=== PATIENT | female | born 1980 | race Caucasian/White ===

== ENCOUNTER 2019-05-25 10:22 | Outpatient (CLI) | payer MEDICAID, SELFPAY ==
[2019-05-25 11:10] LABS: Abs Immature Grans 0.03 k/cumm (0.0-0.09); Absolute Basophil Count 0.03 k/cumm (0.0-0.2); Absolute Eosinophil Count 0.19 k/cumm (0.0-0.7); Absolute Lymphocyte Count 2.56 k/cumm (1.2-3.4); Absolute Monocyte Count 0.43 k/cumm (0.11-0.7); Absolute Neutrophil Count 4.71 k/cumm (1.2-6.7); Basophils % 0.4; Eosinophils % 2.4; HCT 37.5 % (36.0-46.0); HGB 12.4 g/dL (12.0-15.5); Immature Grans % 0.4 %; Lymphocytes % 32.2; Mean Corp. HGB Concentration 33.1 g/dL (32.0-36.0); Mean Corpuscular Hemoglobin 37.9 pg (27.0-33.0); Mean Corpuscular Volume 114.7 fL (80-95); Mean Platelet Volume 10.7 fL (8.0-11.0); Monocytes % 5.4; Neutrophils % 59.2; Platelet Count 276 x1000/uL (130-400); RBC 3.27 m/cumm (4.00-5.20); RBC Distribution Width 13.2 % (11.7-14.6); White Blood Cell Count 7.95 k/cumm (4.4-10.8)
[2019-05-25 11:54] LABS: ALT 20 U/L (14-59); AST 17 U/L (15-37); Albumin 3.9 g/dL (3.4-5.0); Alkaline Phosphatase 73 U/L (46-116); Anion Gap 8.8 mmol/L (3-11); BUN 11 mg/dL (7-18); Bilirubin, Total 0.7 mg/dL (0.2-1.0); CO2 28.2 mmol/L (21.0-32.0); CREATININE 0.66 mg/dL (0.55-1.02); Calcium 8.9 mg/dL (8.5-10.1); Chloride 103 mmol/L (98-107); GGT 28 U/L (5-55); Glucose 73 mg/dL (74-106); Potassium 3.9 mmol/L (3.5-5.1); Sodium 140 mmol/L (136-145); Total Protein 7.2 g/dL (6.4-8.2)
[2019-05-25 12:04] LABS: Bilirubin, Direct 0.15 mg/dL (0.00-0.20)
[2019-05-25 12:09] LABS: Anisocytosis 2+; Diff Comment RBC Morph Reviewed
[2019-05-25 12:10] LABS: Macrocytosis 2+; Polychromasia Present
[2019-05-26 09:51] LABS: Hepatitis B Surface Ag Negative (Negative); Hepatitis C Ab w Rflx HCV PCR Reactive (Negative)
[2019-05-26 10:23] LABS: HIV-1/2 Ag & Ab Screen Negative (Negative)
[2019-05-26 10:26] LABS: Hep A Total Ab w Rflx IgM Positive (Negative)
[2019-05-30 08:49] LABS: HCV RNA Detection Quantitative 0 IU/mL (Undetected)
[2019-05-30 09:15] LABS: Hep A Antibody IgM Negative (Negative)
== END 2019-05-25 10:42 ==
PROVIDERS: PCP Nurse Practitioner Family; Visit Provider Nurse Practitioner Adult Health
DX: F11.20 Opioid dependence, uncomplicated (principal)
CPT/HCPCS: 36415; 80053; 80076; 86709; 86803; 87340; 87389; 82977; 85025; 87522

== ENCOUNTER 2019-07-10 18:04 | Outpatient (REF) | payer MEDICAID, SELFPAY ==
--- NOTE | 2019-07-10 17:15 | PAPFT_PTH ---
PATIENT: Aaliyah Brewer LOC: [facility] U#:[id number] AGE/SX: 39/F ROOM: RE07/10/[address]: Aquilino Munson : 1980 BED: DIS: 07/10/2019 SPEC #: [id number] RECD: 07/11/19 12:49 STATUS: VINAY REQ #: [id number] MICHELLE: 07/10/19 17:[address]: Aquilino Munson DEPT: [facility] Cytology RECD BY: Vinay Johnson Tissues: 1 - CX/ENDOCX FOR PAP SMEARS Procedures: PAP THIN PREP/UVM Screening HPV DNA PROBE Comments: [id number]
[2019-07-12 15:23] LABS: Chlamydia Result Negative (Negative); GC Result Negative (Negative)
[2019-07-12 22:41] LABS: HSV 1 PCR, Varies Negative (Negative); HSV 2 PCR, Varies Positive (Negative)
== END 2019-07-10 18:24 ==
LOC: NCHCN 18:04
PROVIDERS: PCP Nurse Practitioner Family; Visit Provider Family Medicine
DX: N76.6 Ulceration of vulva (principal); Z11.3 Encounter for screening for infections with a predominantly sexual mode of transmission; Z12.4 Encounter for screening for malignant neoplasm of cervix; Z11.51 Encounter for screening for human papillomavirus (HPV); Z00.00 Encounter for general adult medical examination without abnormal findings; R87.612 Low grade squamous intraepithelial lesion on cytologic smear of cervix (LGSIL)
CPT/HCPCS: 87491; 87529; 87591; 88142; 87624

== ENCOUNTER 2019-09-18 02:30 | Outpatient (CLI) | payer MEDICAID, SELFPAY ==
[2019-09-18 16:20] LABS: Abs Immature Grans 0.01 k/cumm (0.0-0.09); Absolute Basophil Count 0.02 k/cumm (0.0-0.2); Absolute Eosinophil Count 0.07 k/cumm (0.0-0.7); Absolute Lymphocyte Count 2.17 k/cumm (1.2-3.4); Absolute Monocyte Count 0.47 k/cumm (0.11-0.7); Absolute Neutrophil Count 3.47 k/cumm (1.2-6.7); Basophils % 0.3; Eosinophils % 1.1; HCT 35.4 % (36.0-46.0); HGB 12.1 g/dL (12.0-15.5); Immature Grans % 0.2 %; Lymphocytes % 34.9; Mean Corp. HGB Concentration 34.2 g/dL (32.0-36.0); Mean Corpuscular Hemoglobin 37.2 pg (27.0-33.0); Mean Corpuscular Volume 108.9 fL (80-95); Mean Platelet Volume 11.2 fL (8.0-11.0); Monocytes % 7.6; Neutrophils % 55.9; Platelet Count 237 x1000/uL (130-400); RBC 3.25 m/cumm (4.00-5.20); RBC Distribution Width 13.5 % (11.7-14.6); White Blood Cell Count 6.21 k/cumm (4.4-10.8)
[2019-09-18 16:48] LABS: ALT 15 U/L (14-59); AST 17 U/L (15-37); Albumin 3.7 g/dL (3.4-5.0); Alkaline Phosphatase 84 U/L (46-116); BUN 7 mg/dL (7-18); Bilirubin, Total 0.5 mg/dL (0.2-1.0); Calcium 8.7 mg/dL (8.5-10.1); Chloride 103 mmol/L (98-107); Glucose 85 mg/dL (74-106); Potassium 3.3 mmol/L (3.5-5.1); Sodium 138 mmol/L (136-145); Total Protein 6.6 g/dL (6.4-8.2)
[2019-09-18 16:52] LABS: ALT 15 U/L (14-59); AST 22 U/L (15-37); Albumin 3.7 g/dL (3.4-5.0); Alkaline Phosphatase 84 U/L (46-116); Bilirubin, Direct 0.15 mg/dL (0.00-0.20); Bilirubin, Total 0.5 mg/dL (0.2-1.0); Total Protein 6.7 g/dL (6.4-8.2)
[2019-09-18 17:04] LABS: GGT 16 U/L (5-55)
[2019-09-19 09:34] LABS: Hepatitis B Surface Ag Negative (Negative)
[2019-09-19 09:49] LABS: HIV-1/2 Ag & Ab Screen Negative (Negative)
[2019-09-19 10:02] LABS: Hep A Total Ab w Rflx IgM Positive (Negative)
[2019-09-19 10:03] LABS: Hepatitis C Ab w Rflx HCV PCR Reactive (Negative)
[2019-09-20 14:53] LABS: HCV RNA Qualitative Undetected (Undetected)
[2019-09-27 11:05] LABS: Hep A Antibody IgM Negative (Negative)
== END 2019-09-18 02:50 ==
PROVIDERS: Psychiatry & Neurology Neurology; PCP Nurse Practitioner Family; Visit Provider Nurse Practitioner Adult Health
DX: G70.00 Myasthenia gravis without (acute) exacerbation (principal); F11.20 Opioid dependence, uncomplicated
CPT/HCPCS: 36415; 80053; 80076; 86709; 86803; 87340; 87389; 87522; 82977; 85025

== ENCOUNTER 2019-11-13 02:25 | Outpatient (CLI) | payer MEDICAID, SELFPAY ==
[2019-11-13 15:29] LABS: Abs Immature Grans 0.02 10^3/uL (0.0-0.06); Absolute Basophil Count 0.04 10^3/uL (0.0-0.2); Absolute Eosinophil Count 0.06 10^3/uL (0.0-0.7); Absolute Lymphocyte Count 1.79 10^3/uL (1.2-3.4); Absolute Monocyte Count 0.45 10^3/uL (0.1-0.8); Absolute Neutrophil Count 4.45 10^3/uL (1.2-6.7); Basophils % 0.6; Eosinophils % 0.9; HCT 33.9 % (36.0-46.0); HGB 11.5 g/dL (11.2-15.7); Immature Grans % 0.3; Lymphocytes % 26.3; MCH 36.1 pg (27.0-33.0); MCHC 33.9 % (32.0-36.0); MCV 106.3 fL (80-95); MPV 10.5 fL (8.0-11.0); Monocytes % 6.6; Neutrophils % 65.3; Nucleated RBC 0 %; Platelet Count 181 10^3/uL (130-400); RBC 3.19 10^6/uL (3.93-5.22); RDW 14.3 % (11.7-14.6); RDW-SD 55.9 fL; WBC 6.81 10^3/uL (4.4-10.8)
[2019-11-13 16:17] LABS: ALT 16 U/L (14-59); AST 13 U/L (15-37); Albumin 3.7 g/dL (3.4-5.0); Alkaline Phosphatase 83 U/L (46-116); Anion Gap 6.8 mmol/L (3-11); BUN 11 mg/dL (7-18); Bilirubin, Total 0.4 mg/dL (0.2-1.0); CO2 27.2 mmol/L (21.0-32.0); CREATININE 0.63 mg/dL (0.55-1.02); Calcium 8.6 mg/dL (8.5-10.1); Chloride 105 mmol/L (98-107); Glucose 93 mg/dL (74-106); Sodium 139 mmol/L (136-145); Total Protein 6.5 g/dL (6.4-8.2)
[2019-11-13 17:15] LABS: Diff Comment RBC Morph Reviewed; Macrocytosis 3+
[2019-11-14 12:30] LABS: Vitamin B12 434 pg/mL (193-986)
== END 2019-11-13 02:45 ==
PROVIDERS: PCP Nurse Practitioner Family; Visit Provider Psychiatry & Neurology Neurology
DX: D64.9 Anemia, unspecified (principal); G70.00 Myasthenia gravis without (acute) exacerbation
CPT/HCPCS: 36415; 80053; 82607; 85025

== ENCOUNTER 2019-11-15 02:54 | Outpatient (CLI) | payer MEDICAID, SELFPAY ==
[2019-11-15 17:05] LABS: Folate 11.4 ng/mL (8.6-20.0)
== END 2019-11-15 03:14 ==
PROVIDERS: PCP Nurse Practitioner Family; Visit Provider Psychiatry & Neurology Neurology
DX: D64.9 Anemia, unspecified (principal)
CPT/HCPCS: 36415; 82746

== ENCOUNTER 2019-11-16 00:53 | Outpatient (CLI) | payer MEDICAID, SELFPAY ==
--- NOTE | 2019-11-16 07:45 | DI.CT_ITS ---
EXAM: CT CHEST W CLINICAL HISTORY: s/p thymoma/thymus resection,g70.00,d15.0 TECHNIQUE: COMPARISON: CT CHEST WITH CONTRAST from 06/30/2016 FINDINGS: Examination of the chest was performed with intravenous infusion of 70 cc of Omnipaque 350. Examinat ion is compared with prior examination June 2016, the patient has reportedly had interval thymus res ection for thymoma. The anterior mediastinal mass present on the previous examination is no longer visible. No clear-cut thymic tissue identified on today's examination, although mildly increased attenuation of mediastina l fat in the superior, anterior, and middle mediastinum could make differentiation of small thymic ma ss difficult. Mediastinal vascular structures appear intact. No mediastinal or hilar adenopathy. Tracheobronchial tree appears intact. Lungs are clear. No ple ural effusion. Images obtained through the upper abdomen show unremarkable appearance of visualized portions of live r, spleen, pancreas, adrenals, and kidneys. Thyroid appears normal. IMPRESSION: No evidence of recurrent thymic tumor. No adenopathy. No other significant findings. RADIATION DOSE DELIVERED: 447.54mGy.cm Total DLP
[2019-11-16] MEDS: Omnipaque 350 MG/ML 100 ML BTL IJ (15:37)
== END 2019-11-16 01:13 ==
PROVIDERS: PCP Nurse Practitioner Family; Visit Provider Psychiatry & Neurology Neurology
DX: Z86.018 Personal history of other benign neoplasm (principal); G70.00 Myasthenia gravis without (acute) exacerbation
CPT/HCPCS: 71260; J3490

== ENCOUNTER 2019-12-12 14:01 | Emergency (ER) | payer MEDICAID, SELFPAY ==
[2019-12-12] VITALS (28 sets, daily range): BP systolic 98–125; BP diastolic 65–78; PULSE 57–88; RESP 13–23; TEMP 36.7; O2SAT 94–100
--- NOTE | 2019-12-12 14:00 | RT.EKG_ITS ---
APPROVED REPORT Exam: Resting ECG Patient Location: E HR:80 bpm ECG Measurements Heart Rate 80 AXIS OR 163 P 49 QRSd 93 QRS 34 QT 373 T 38 QTc 430 Conclusion Sinus rhythm...normal P axis, V-rate 60- 99. I have reviewed and interpreted ECG and agree with software generated interpretation.
--- NOTE | 2019-12-12 14:03 | W.ED.GENAD ---
Discharge Plan Disposition Patient Disposition: HOME Condition: Improving Discharge Details Clinical Impression: Episode of syncope, Fatigue Primary Care Provider: Dorcas Moore ED Provider: Sandi Humphrey Home Meds and New Rx's Prescriptions: Continued azathioprine 50 mg tablet 250 mg PO DAILY Qty: 150 RF: 11 acetaminophen 325 mg capsule 325 mg PO ONCE PRNRF: 0 ibuprofen 200 mg capsule 200 mg PO Q6H PRNRF: 0 methylphenidate HCl 20 mg tablet 20 mg PO BID MDD 40mg Qty: 60 RF: 0 buprenorphine HCl 8 mg tablet, sublingual 12 mg SL DAILY RF: 0 Discharge Instructions Instructions: Syncope (ED), Fatigue (ED) Additional Instructions: Drink plenty of fluids and get plenty of rest. Call Dr. Biswas's office tomorrow to schedule a follow-up appointment for reevaluation this week. 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 Return immediately to the emergency department if you develop any worsening or new concerning symptoms. Discharge Data Discharge Physician: Sandi Humphrey Medical Decision Making 1415 -- 39-year-old female with a history of depression, hypersomnia, myasthenia gravis, polysubstance abuse history currently on Suboxone presents for fatigue for the past few days and syncopal episode at work today. EKG notes a rate of 80, sinus with no acute ST-T wave ischemic changes. Vitals within normal limits. She appears nontoxic. She has no focal deficits. Differential diagnosis includes dehydration, vasovagal syncope, viral illness. History and presentation does not appear consistent with acute CVA. Doubt arrhythmia as she has no complaint of chest pain, shortness of breath or palpitations and syncopal episode preceded by prodromal symptoms. We will place an IV, bolus IV fluids, screening labs, urine , chest x-ray and reassess. 1530 --labs and imaging reviewed and unremarkable. Patient reassessed and she still feels of feeling some fatigue but otherwise feels good to go home. She appears nontoxic. Her vitals within normal limits. Vitamin B12 and folate within normal limits. Discussed with patient that this does not appear consistent with a cardiac or neuro etiology. She is advised to increase her fluids and get plenty of rest. Discussed that symptoms could be viral in nature. Case and results discussed with Dr. Biswas who will follow up with patient in the office. Medical Records Medical records reviewed: Yes I reviewed the patient's medical records. Imaging Data Radiologic Study: Radiologist's impression: XR PORTABLE CHEST AP CLINICAL HISTORY: syncope, r/o acute disease TECHNIQUE: 2D digital imaging was performed. COMPARISON: No exams were available for comparison FINDINGS: MEDIASTINUM: Normal. HEART: Normal. PULMONARY VASCULATURE: Normal. LUNGS: Clear. PLEURAL SPACE: No pleural effusion or pneumothorax. BONE:Within normal limits for the patient's age. OTHER FINDINGS:Normal. IMPRESSION: No acute pulmonary findings. Lab Data Lab results reviewed: Yes I reviewed the patient's lab results. Labs: Laboratory Tests Range/Units 12/12/19 12/12/19 12/12/19 14:15 14:15 14:15 WBC (4.4-10.8) 10^3/uL 8.33 RBC (3.93-5.22) 10^6/uL 3.62 L Hgb (11.2-15.7) g/dL 13.1 Hct (36.0-46.0) % 38.2 MCV (80-95) fL 105.5 H MCH (27.0-33.0) pg 36.2 H MCHC (32.0-36.0) % 34.3 RDW (11.7-14.6) % 13.5 Plt Count (130-400) 10^3/uL 163 MPV (8.0-11.0) fL 11.3 H Immature Gran % 0.2 Neutrophils % 64.4 Lymphocytes % 27.4 Monocytes % 6.0 Eosinophils % 1.4 Basophils % 0.6 Nucleated RBC % % 0 Absolute Neutrophils (1.2-6.7) 10^3/uL 5.36 Absolute Lymphocytes (1.2-3.4) 10^3/uL 2.28 Absolute Monocytes (0.1-0.8) 10^3/uL 0.50 Absolute Eosinophils (0.0-0.7) 10^3/uL 0.12 Absolute Basophils (0.0-0.2) 10^3/uL 0.05 PT Cancelled INR Cancelled APTT Cancelled Sodium (136-145) mmol/L 139 Potassium (3.5-5.1) mmol/L 3.6 Chloride (98-107) mmol/L 106 Carbon Dioxide (21.0-32.0) mmol/L 23.9 Anion Gap (3-11) mmol/L 9.1 BUN (7-18) mg/dL 15 Creatinine (0.55-1.02) mg/dL 0.78 Estimated GFR/1.73 m2 (mL/min/1.73m2) >= 60.00 Glucose (74-106) mg/dL 92 Calcium (8.5-10.1) mg/dL 9.0 Magnesium (1.8-2.4) mg/dL 1.9 Total Bilirubin (0.2-1.0) mg/dL 0.2 AST (15-37) U/L 12 L ALT (14-59) U/L 9 L Alkaline Phosphatase (46-116) U/L 76 Troponin I (<0.06) ng/mL < 0.05 Total Protein (6.4-8.2) g/dL 7.0 Albumin (3.4-5.0) g/dL 3.7 Vitamin B12 (193-986) pg/mL 607 Folate (8.6-20.0) ng/mL 10.9 Range/Units 12/12/19 12/12/19 12/12/19 14:47 14:48 14:50 WBC (4.4-10.8) 10^3/uL RBC (3.93-5.22) 10^6/uL Hgb (11.2-15.7) g/dL Hct (36.0-46.0) % MCV (80-95) fL MCH (27.0-33.0) pg MCHC (32.0-36.0) % RDW (11.7-14.6) % Plt Count (130-400) 10^3/uL MPV (8.0-11.0) fL Immature Gran % Neutrophils % Lymphocytes % Monocytes % Eosinophils % Basophils % Nucleated RBC % % Absolute Neutrophils (1.2-6.7) 10^3/uL Absolute Lymphocytes (1.2-3.4) 10^3/uL Absolute Monocytes (0.1-0.8) 10^3/uL Absolute Eosinophils (0.0-0.7) 10^3/uL Absolute Basophils (0.0-0.2) 10^3/uL PT 9.9 INR 1.0 APTT 24.8 Sodium (136-145) mmol/L Potassium (3.5-5.1) mmol/L Chloride (98-107) mmol/L Carbon Dioxide (21.0-32.0) mmol/L Anion Gap (3-11) mmol/L BUN (7-18) mg/dL Creatinine (0.55-1.02) mg/dL Estimated GFR/1.73 m2 (mL/min/1.73m2) Glucose (74-106) mg/dL Calcium (8.5-10.1) mg/dL Magnesium (1.8-2.4) mg/dL Total Bilirubin (0.2-1.0) mg/dL AST (15-37) U/L ALT (14-59) U/L Alkaline Phosphatase (46-116) U/L Troponin I (<0.06) ng/mL Total Protein (6.4-8.2) g/dL Albumin (3.4-5.0) g/dL Vitamin B12 (193-986) pg/mL Cancelled Folate (8.6-20.0) ng/mL Cancelled ECG Data Attestation: I personally reviewed and interpreted this ECG (s) as follows: Interpretation: rate of 80, sinus, no acute ST elevation or depression. NM 163. QRS 93. QTc 430. HPI General Mode of arrival: ambulatory. Date/Time Provider Initiated Documentation: 12/12/19 14:01. Limitations to Documentation: no limitations. Information obtained by: patient. HPI Narrative: Patient is a 39-year-old female with a history of depression, hypersomnia, myasthenia gravis, history of polysubstance abuse on Suboxone for the past 2 years presents for fatigue for the past few days and syncopal episode at work this morning. Patient states she is on her feet all day at work and states she was walking when she felt lightheadedness, noted blurry vision and then tried to sit down but did not make it in time and passed out. She states she scraped her right thumb on the wall but otherwise denies any injuries. She denies any headache, chest pain, shortness of breath, palpitations, nausea, vomiting, abdominal pain, neck or back pain prior to onset of symptoms or at present. She states other than feeling more tired than usual over the past few days she denies any other acute symptoms. She states she has been eating and sleeping normally. She denies any fever, recent travel or recent known sick contacts. She states she has been weaning down off of her Suboxone by 2 mg every 2 weeks and states she decreased from 14 to 12 last . She states that she called Dr. Biswas's office this morning regarding her symptoms and was advised to come to the ER for evaluation and EKG. She only complains of fatigue at this time and denies any other symptoms. Related Data Home Medications Medication Instructions Recorded Confirmed acetaminophen 325 mg capsule 325 mg PO ONCE PRN 04/26/19 12/12/19 ibuprofen 200 mg capsule 200 mg PO Q6H PRN 04/26/19 12/12/19 azathioprine 50 mg tablet 250 mg PO DAILY #150 tab 06/07/19 12/12/19 methylphenidate HCl 20 mg tablet 20 mg PO BID #60 tab MDD 40mg 11/14/19 12/12/19 buprenorphine HCl 12 mg SL DAILY 12/12/19 12/12/19 Previous Rx's Medication Instructions Recorded azathioprine 50 mg tablet 250 mg PO DAILY #150 tab 06/07/19 methylphenidate HCl 20 mg tablet 20 mg PO BID #60 tab MDD 40mg 11/14/19 Allergies Allergy/AdvReac Type Severity Reaction Status Date / Time adhesive tape Allergy Severe pealed her Unverified 12/12/19 14:07 skin off when removing the tape. Review of Systems All systems reviewed & are unremarkable except as noted in HPI and below Constitutional Constitutional: Reports as per HPI, Denies chills, Reports fatigue and Denies fever(s) Eyes Eyes: Denies blurry vision ENT Ears, Nose, Mouth, and Throat: Reports dizziness, Denies sore throat and Denies throat swelling Cardiovascular Cardiovascular: Denies chest pain and Denies dyspnea Respiratory Respiratory: Denies cough and Denies dyspnea Gastrointestinal Gastrointestinal: Denies abdominal pain, Denies diarrhea and Denies vomiting Genitourinary Genitourinary: Denies hematuria and Denies dysuria Musculoskeletal Musculoskeletal: Denies back pain and Denies numbness Integumentary/Breasts Skin/Breast: Denies lesions and Denies rash Neurologic Neurologic: Reports dizziness, Denies localized weakness and Denies numbness Endocrine Endocrine: Reports fatigue Allergic/Immunologic Allergic/Immunologic: Denies throat swelling [facility] Medical History (Updated 12/12/19 @ 16:33 by Sandi Humphrey DO) Depression 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 Hypersomnia Incompetent cervix Myasthenia gravis Polysubstance (including opioids) dependence with physiol dependence Thymoma Surgical History History of thymectomy Hx of breast implants, bilateral S/P dilatation and curettage S/P tubal ligation Social History (Updated 09/07/19 @ 10:10 by Gina Martinez LPN) Smoking/Tobacco Use Status: Current every day Tobacco Type: cigarettes Alcohol Intake: never Drug use: Current Sobriety Number of Children: 2 current occupation: Unemployed Do you feel safe at home: Yes Do you feel safe in your relationship?: Yes Exam Const General: cooperative, healthy appearing and no acute distress HENMT Head: normal to inspection Face and sinus: normal facial exam Eyes General: appearance normal, both eyes and all related structures Pupils: PERRL EOM: EOM intact bilaterally Neck Neck: normal visual inspection and No submandibular swelling Lymphatic: no lymphadenopathy noted Chest Chest: normal inspection of the chest and no tenderness Resp Effort & Inspection: normal respiratory effort and able to speak in complete sentences Auscultation: clear to auscultation bilaterally Cardio Rate: regular rate Rhythm: regular rhythm GI Inspection: normal to inspection Palpation: soft, not firm, not rigid and nontender Auscultation: normal bowel sounds Skin General skin exam: no rashes or lesions noted Neuro General: patient alert, patient awake, patient oriented x3, gait normal, moves all extremities, no meningeal signs and no focal motor deficits Cognition: normal cognition Speech: speech normal Motor: muscle tone normal throughout and strength 5/5 throughout Sensory Exam: no sensory deficits noted Extrem General: normal to inspection, full ROM, capillary refill normal, no calf tenderness bilaterally and no edema Psych Appearance: grossly normal Mental Status: mental status grossly normal Speech and Movement: speech and movement normal Affect: normal affect
--- NOTE | 2019-12-12 14:30 | DI.RAD_ITS ---
EXAM: XR PORTABLE CHEST AP CLINICAL HISTORY: syncope, r/o acute disease TECHNIQUE: 2D digital imaging was performed. COMPARISON: No exams were available for comparison FINDINGS: MEDIASTINUM: Normal. HEART: Normal. PULMONARY VASCULATURE: Normal. LUNGS: Clear. PLEURAL SPACE: No pleural effusion or pneumothorax. BONE:Within normal limits for the patient's age. OTHER FINDINGS:Normal. IMPRESSION: No acute pulmonary findings. DATA REPOSITORY: RADIATION DOSE DELIVERED:
[2019-12-12 14:34] LABS: Abs Immature Grans 0.02 10^3/uL (0.0-0.06); Absolute Basophil Count 0.05 10^3/uL (0.0-0.2); Absolute Eosinophil Count 0.12 10^3/uL (0.0-0.7); Absolute Lymphocyte Count 2.28 10^3/uL (1.2-3.4); Absolute Neutrophil Count 5.36 10^3/uL (1.2-6.7); Basophils % 0.6; Eosinophils % 1.4; HCT 38.2 % (36.0-46.0); HGB 13.1 g/dL (11.2-15.7); Immature Grans % 0.2; Lymphocytes % 27.4; MCH 36.2 pg (27.0-33.0); MCHC 34.3 % (32.0-36.0); MCV 105.5 fL (80-95); MPV 11.3 fL (8.0-11.0); Neutrophils % 64.4; Nucleated RBC 0 %; Platelet Count 163 10^3/uL (130-400); RBC 3.62 10^6/uL (3.93-5.22); RDW 13.5 % (11.7-14.6); WBC 8.33 10^3/uL (4.4-10.8)
[2019-12-12] MEDS: Normal Saline 1,000 ML 1000 ML IV (14:48)
[2019-12-12 14:55] LABS: ALT 9 U/L (14-59); AST 12 U/L (15-37); Albumin 3.7 g/dL (3.4-5.0); Alkaline Phosphatase 76 U/L (46-116); Anion Gap 9.1 mmol/L (3-11); BUN 15 mg/dL (7-18); Bilirubin, Total 0.2 mg/dL (0.2-1.0); CO2 23.9 mmol/L (21.0-32.0); CREATININE 0.78 mg/dL (0.55-1.02); Chloride 106 mmol/L (98-107); Glucose 92 mg/dL (74-106); Magnesium 1.9 mg/dL (1.8-2.4); Potassium 3.6 mmol/L (3.5-5.1); Sodium 139 mmol/L (136-145)
[2019-12-12 14:58] LABS: Troponin I < 0.05 ng/mL (<0.06)
[2019-12-12 15:14] LABS: PTT Activated 24.8 sec (21.0-31.4); Prothrombin Time 9.9 sec (9.3-11.0)
[2019-12-12 15:38] LABS: Folate 10.9 ng/mL (8.6-20.0); Vitamin B12 607 pg/mL (193-986)
== END 2019-12-12 16:47 | disposition home or self-care (01) ==
PROVIDERS: Emergency Provider Physician Assistant; PCP Nurse Practitioner Family
DX: R55 Syncope and collapse (principal); R53.83 Other fatigue; G70.00 Myasthenia gravis without (acute) exacerbation; G47.10 Hypersomnia, unspecified
CPT/HCPCS: 36415; 80053; 81025; 93005; 96360; 99285; 71045; 82607; 82746; 83735; 84484; 85025; 85610; 85730; 93010

== ENCOUNTER 2020-02-14 02:10 | Outpatient (CLI) | payer MEDICAID, SELFPAY ==
[2020-02-15 15:24] LABS: SARS-CoV-2 RNA Not Detected (NotDetected); SARS-CoV-2 RNA Source Nasal/Nares
== END 2020-02-14 02:30 ==
PROVIDERS: PCP Nurse Practitioner Family; Visit Provider Orthopaedic Surgery
DX: Z11.59 Encounter for screening for other viral diseases (principal); Z01.818 Encounter for other preprocedural examination
CPT/HCPCS: U0003

== ENCOUNTER 2020-02-19 07:15 | Day surgery (SDC) | payer MEDICAID, SELFPAY ==
[2020-02-19 07:26] VITALS: BP 113/70; PULSE 70; RESP 16; TEMP 36.4; O2SAT 100
--- NOTE | 2020-02-19 07:47 | W.PREOPHP ---
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 Denies any contact with Covid-19 positive persons. Educated patient on surgery covering surgical technique, recovery process, benefits and risks including but not limited to risk of infection, blood clot, damage to soft tissue/blood vessels/nerves in detail. Educated that relief of her numbness and tingling was not guaranteed and can take up to 24 months to see end medical result. After discussion patient gives verbal understanding of risks and elects to proceed with scheduling surgery. Patient had opportunity to have questions answered to their satisfaction. They will contact office if issues arise. Patient will continue to be scheduled for right ECTR with Dr. Gottlieb. History of Present Illness Narrative: Ms. Brewer is a 40-year-old female who presents to hospital for scheduled right ECTR later today. She has been experiencing numbness and weakness in her right hand since June 2019. Due to this symptoms she has been having difficulty with picking up small objects as well as dropping things. She has tried to manage her symptoms with nighttime bracing which completely resolved her left hand complaints but did not change her right hand symptoms. Due to her continued symptoms she was offered and elected to proceed with surgical intervention. Pertinent Surgical Information Reports she has history of hepatitis C but completed treatment while incarcerated ~1 year ago. Denies past medical history of: Hypertension, stroke, cardiac issues, angina, asthma, COPD, sleep apnea, renal issues, gastrointestinal issues, ulcers, hyperlipidemia, bleeding disorders, seizures, migraines, anxiety, diabetes, thyroid issues Denies prior complications from surgery or anesthesia. 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 Hypersomnia Incompetent cervix Irregular menses (01/12/14) Myasthenia gravis Polysubstance (including opioids) dependence with physiol dependence On Suboxone, pt states she has been tapering off this medication Thymoma Surgical History History of thymectomy Hx of breast implants, bilateral S/P dilatation and curettage S/P tubal ligation Social History Smoking/Tobacco Use Status: Current every day Tobacco Type: cigarettes Smoking risk assessment performed?: Yes Alcohol Intake: never Drug use: Current Sobriety Substance use type: does not use Number of Children: 2 current occupation: Unemployed Current gender identity: female Do you feel safe at home: Yes Do you feel safe in your relationship?: Yes Meds Home Medications and Allergies Home Medications Medication Instructions Recorded Confirmed Type acetaminophen 325 mg capsule 325 mg PO ONCE PRN 04/26/19 02/19/20 History ibuprofen 200 mg capsule 200 mg PO Q6H PRN 04/26/19 02/13/20 History azathioprine 50 mg tablet 250 mg PO DAILY #150 tab 06/07/19 02/19/20 Rx buprenorphine HCl 8 mg SL DAILY 12/12/19 02/19/20 History methylphenidate HCl 20 mg tablet 20 mg PO BID #60 tab MDD 40mg 02/07/20 02/19/20 Rx Allergies Allergy/AdvReac Type Severity Reaction Status Date / Time adhesive tape Allergy Severe pealed her Unverified 02/13/20 10:16 skin off when removing the tape. Exam Const General: cooperative and no acute distress Resp Effort & Inspection: normal respiratory effort and able to speak in complete sentences Auscultation: clear to auscultation bilaterally, no rales, no rhonchi and no wheezes Cardio Heart Sounds: S1 normal, S2 normal, no murmurs, no rubs and no other Pulses: radial pulses present bilaterally Results Last Vital Signs Temp 36.4 C L 02/19/20 07:26 Pulse 70 02/19/20 07:26 Resp 16 02/19/20 07:26 BP 113/70 02/19/20 07:26 Pulse Ox 100 02/19/20 07:26
[2020-02-19] MEDS: Lactated Ringers 1,000 ML 80 ML IV (08:00)
[2020-02-19] MEDS: ceFAZolin 1 GM/50 ML BAG IVPB (08:30)
[2020-02-19] MEDS: Bupivacaine 0.5% Pres-Free 30 ML VIAL (08:58)
--- NOTE | 2020-02-19 09:09 | W.PM.DSUDISC ---
Discharge Plan Disposition Patient Disposition: HOME Condition: Good Discharge Details Reason For Visit: R ECTR Attending Provider: Sherif Gottlieb Primary Care Provider: Dorcas Moore Home Meds and New Rx's Prescriptions: New hydrocodone-acetaminophen 5-325 mg tablet 1 tab PO Q6H PRN (Reason: pain) Qty: 7 RF: 0 Continued azathioprine 50 mg tablet 250 mg PO DAILY Qty: 150 RF: 11 acetaminophen 325 mg capsule 325 mg PO ONCE PRNRF: 0 ibuprofen 200 mg capsule 200 mg PO Q6H PRNRF: 0 methylphenidate HCl 20 mg tablet 20 mg PO BID MDD 40mg Qty: 60 RF: 0 buprenorphine HCl 8 mg tablet, sublingual 8 mg SL DAILY RF: 0 Discharge Instructions Additional Instructions: Elevate R hand above heart level as much as possible overnite tonite. Wiggle fingers of R hand 10 times/hour when awake to prevent swelling. Keep splint and dressings dry and intact for 48 hours. Remove splint AND dressings after 48 hours, and begin to move R wrist. Use R hand as much as your discomfort allows. May leave incision uncovered when it is dry and sealed. Follow up with on 02/28/20 for suture removal. Take tylenol or ibuprofen for mild pain. Take hydrocodone for breakthru pain, if needed. Referrals: Sherif Gottlieb MD [ [facility] STAFF PHYSICIAN] - (f/u 02/28/20Wed) Equipment/Supplies: Splint Activity:: Activity as Tolerated Remove Dressings/Wound Care:: 48 hours Shower/Bathe:: 48 hours Diet:: As Tolerated Discharge Orders Discharge Orders: Discharge Order (Routine); Ordered 02/19/20 Ordered By: Sherif Gottlieb DS: Diagnosis Discharge Diagnosis (1) Carpal tunnel syndrome on right: Status: Acute
--- NOTE | 2020-02-19 09:46 | NUR.NOTE ---
States she never recieved instructions or prescriptions for a bowel prep...only for instructions about when to stop eating and for clear liquids. Dr. Ruggiero made aware. Procedure cancelled. IV discontinued. Escorted out by RN and instructed to call Dr. Meeks's office. Nursing Note:
[2020-02-19 10:06] VITALS: BP 94/63; PULSE 58; RESP 16; TEMP 36.6; O2SAT 99
--- NOTE | 2020-02-19 14:59 | ROE_ITS ---
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 Diagnosis was confirmed with nerve conduction studies. She achieved some temporary relief from night splinting. Over the last couple months she has had no significant relief of symptoms of numbness and pain in the median nerve distribution of her right hand. Carpal tunnel release was recommended to alleviate her symptoms on a permanent basis. Patient wished to undergo the endoscopic technique of carpal tunnel release. The risks and complications of procedure have been explained to her in detail preoperatively. Procedure Description: Patient was taken the operating room on 02/19/2020 where she was placed supine operating table. An IV regional anesthetic was administered to the right upper extremity. Once good anesthesia was obtained, the right hand wrist and forearm were prepped and draped free in usual sterile fashion. Transverse incision was made in line with the proximal flexion crease of the wrist beginning at the flexor carpi radialis tendon extending to the flexor carpi ulnaris tendon. Palmaris longus tendon was identified and was retracted radially. Subtenon's veins were cauterized. A distally based fascial flap was then developed to gain access to the carpal canal. Synovial reflector was then used to release any synovial attachments to the undersurface of the volar carpal ligament. Series of obturators were then introduced to make room for the endoscope/blade device. The endoscope/blade was then inserted into the carpal canal and advanced until the distal edge of the volar carpal ligament was clearly visualized. Care was taken to position the endoscope against the hook of the hamate. The trigger was depressed elevating the blade and the elevated blade was brought out from distal to proximal through the skin incision, transecting the volar carpal ligament. The blade was lowered the endoscope was reintroduced into the carpal tunnel. I confirmed that the carpal tunnel release was complete and that the median nerve could be seen to fall into the defect created in the volar carpal ligament. The endoscope was removed. Littler scissors were then used to perform a subcutaneous fasciotomy for approximately 2 inches proximal to the skin incision. Wounds irrigated with saline solution. The wound margins were infiltrated 0.5% Marcaine solution and a median nerve block was performed with 0.5% Marcaine solution. Skin edges were approximated with 2 horizontal mattress sutures of 4-0 nylon suture material. The wound was dressed with Xeroform gauze sterile gauze 4 x 4's wrapped with a Kerlix bandage and then wrapped with a 3 inch Adam bandage. She is placed in a commercial cock- up wrist splint. Her IV regional anesthesia was reversed without complications and she was discharged to the recovery room in good condition. Patient was later discharged home from day surgery unit when fully recovered from IV regional anesthesia. She is given instructions to try to elevate her right hand above heart level as much as possible overnight tonight. She is encouraged to wiggle her fingers 10 times an hour while awake to prevent swelling. She is to keep the dressings and splint dry and intact for 48 hours. After 48 hours she is to remove the splint and dressings and begin to move her right wrist. She may then shower bathe and get her incision wet. She is to leave the incision uncovered when is dry and sealed. She may use her right hand is much as discomfort allows. She will take Tylenol or ibuprofen for mild pain. She is given a prescription for breakthrough pain of hydrocodone with APAP 5/325 1 every 6 hours if needed. She will follow-up with Dr. Gottlieb on 02/28/2020.
== END 2020-02-19 10:38 | disposition home or self-care (01) ==
PROVIDERS: PCP Nurse Practitioner Family; Visit Provider Orthopaedic Surgery
PROC: 01N54ZZ Release Median Nerve, Percutaneous Endoscopic Approach (ICD-10-PCS; CPT 29848; principal; 2020-02-19 08:15)
DX: G56.01 Carpal tunnel syndrome, right upper limb (principal)
CPT/HCPCS: 29848; NC; J0690; J1100; J1885; J2001; J2405; J2704; L3908

== ENCOUNTER 2020-03-05 15:53 | Outpatient (REF) | payer MEDICAID, SELFPAY ==
--- NOTE | 2020-03-05 15:00 | PAPFT_PTH ---
PATIENT: Aaliyah Brewer LOC: [facility] U#:[id number] AGE/SX: 40/F ROOM: RE03/05/[address]: BENITO Amaya : 1980 BED: DIS: 03/05/2020 SPEC #: [id number] RECD: 03/05/20 18:03 STATUS: VINAY REJanine #: [id number] MICHELLE: 03/05/20 15:[address]: Lexus Carvalho DEPT: COUNTS INCLUDE 234 BEDS AT THE [facility] Cytology RECD BY: Taryn Rahman ENTERED: 03/05/20 18:04 SP TYPE: PAPFT CORDELL DR: Dorcas Moore Tissues: 1 - CX/ENDOCX FOR PAP SMEARS Procedures: PAP THIN PREP/UVM Screening HPV DNA PROBE Comments: [id number]
== END 2020-03-05 16:13 ==
LOC: LBN 15:53
PROVIDERS: PCP Nurse Practitioner Family; Visit Provider Nurse Practitioner Family
DX: Z12.4 Encounter for screening for malignant neoplasm of cervix (principal); Z11.51 Encounter for screening for human papillomavirus (HPV)
CPT/HCPCS: 88142; 87624

== ENCOUNTER 2020-07-22 11:57 | Outpatient (REF) | payer MEDICAID, SELFPAY ==
[2020-07-23 15:42] LABS: COVID-19 RT-PCR UVMMC Result Negative (Negative)
== END 2020-07-22 11:58 | disposition home or self-care (01) ==
LOC: NCHCN 11:57
PROVIDERS: PCP Nurse Practitioner Family; Visit Provider Nurse Practitioner Family
DX: Z20.822 Contact with and (suspected) exposure to COVID-19 (principal); R51.9 Headache, unspecified
CPT/HCPCS: 80053; 83690; U0003; 82150; 82728; 85025

== ENCOUNTER 2020-08-16 15:26 | Outpatient (REF) | payer MEDICAID, SELFPAY ==
[2020-08-16 19:02] LABS: HCT 37.6 % (36.0-46.0); HGB 12.8 g/dL (11.2-15.7); MCH 31.5 pg (27.0-33.0); MCV 92.6 fL (80-95); MPV 12.1 fL (8.0-11.0); Platelet Count 192 10^3/uL (130-400); RBC 4.06 10^6/uL (3.93-5.22); RDW 12.4 % (11.7-14.6); RDW-SD 42.6 fL; WBC 7.31 10^3/uL (4.4-10.8)
== END 2020-08-16 15:27 | disposition home or self-care (01) ==
LOC: NCHCN 15:26
PROVIDERS: PCP Nurse Practitioner Family; Visit Provider Physician Assistant
DX: R11.0 Nausea (principal)
CPT/HCPCS: 80048; 80076; 85027

== ENCOUNTER 2020-08-21 03:28 | Outpatient (CLI) | payer MEDICAID, SELFPAY ==
[2020-08-21 13:20] LABS: ALT 14 U/L (14-59); AST 12 U/L (15-37); Albumin 3.7 g/dL (3.4-5.0); Alkaline Phosphatase 62 U/L (46-116); Anion Gap 7.4 mmol/L (3-11); BUN 11 mg/dL (7-18); Bilirubin, Direct 0.1 mg/dL (0.0-0.2); Bilirubin, Total 0.4 mg/dL (0.2-1.0); CO2 28.6 mmol/L (21.0-32.0); CREATININE 0.7 mg/dL (0.55-1.02); Calcium 8.6 mg/dL (8.5-10.1); Chloride 106 mmol/L (98-107); Glucose 70 mg/dL (74-106); Sodium 142 mmol/L (136-145); Total Protein 6.7 g/dL (6.4-8.2)
== END 2020-08-21 03:29 | disposition home or self-care (01) ==
LOC: LBO 03:28
PROVIDERS: PCP Nurse Practitioner Family; Visit Provider Physician Assistant
DX: R11.0 Nausea (principal)
CPT/HCPCS: 80048; 80076

== ENCOUNTER 2020-09-02 02:40 | Emergency (ER) | payer MEDICAID, SELFPAY ==
[2020-09-02] VITALS (8 sets, daily range): BP systolic 77–108; BP diastolic 49–67; PULSE 49–60; RESP 10–16; TEMP 36.3; O2SAT 94–100
--- NOTE | 2020-09-02 02:30 | RT.EKG_ITS ---
APPROVED REPORT Exam: Resting ECG Reason for Exam: shortness of breath Patient Location: E HR:54 bpm ECG Measurements Heart Rate 54 AXIS MT 134 P 20 QRSd 97 QRS 40 QT 432 T 56 QTc 408 Conclusion Sinus bradycardia...rate< 60
[2020-09-02 02:54] LABS: Bilirubin Negative (Negative); Blood Negative (Negative); Clarity Cloudy (Clear); Glucose Negative (Negative); Ketones Negative (Negative); Leukocyte Esterase Negative (Negative); Nitrite Negative (Negative); Specific Gravity >= 1.030 (1.005-1.025); Urobilinogen 0.2 EU/dL (Up TO 0.2)
--- NOTE | 2020-09-02 03:00 | DI.CT_ITS ---
Exam(s) CT THORAX CTA EXAM: CT THORAX CTA CLINICAL HISTORY: chest and upper back pain. TECHNIQUE: Imaging Protocol: CT angiography of the chest was performed using pulmonary embolus donna col. Multi planar reconstructions were performed. CONTRAST MATERIAL: Intravenous: Omnipaque 350 Contrast volume: 100 cc COMPARISON: CT CT CHEST W from 11/16/2019 FINDINGS: CHEST: PULMONARY ARTERIES: There are no intraluminal filling defects to suggest acute pulmonary emboli. LUNGS: There are no infiltrates nor evidence of pulmonary infarction.. There are no pleural effusions . MEDIASTINUM: There is no hilar nor mediastinal adenopathy. Visualized thyroid unremarkable. CARDIAC: Heart size is upper normal. There is no pericardial effusion.Caliber of the thoracic aorta is within normal limits. There is no significant shift of the interventricular septum. PARTIALLY VISUALIZED UPPERMOST ABDOMEN: No obvious findings OSSEOUS: No significant osseous lesions.. Bilateral saline breast implants are again noted IMPRESSION: 1. No evidence of acute pulmonary emboli. No evidence of pulmonary infarction.No pleural effusions. 2. No aortic dissection. No pericardial effusion. 3. No mediastinal adenopathy nor mass. Apparently there has been previous thymus pathology. No evid ence of thymus mass at this time. RADIATION DOSE DELIVERED: 459.04mGy.cm Total DLP DATA REPOSITORY: All CT scans at this facility are submitted to the National Radiology Data Registry (NRDR) Dose Index Registry (DIR) with the [employer] (ACR). RADIATION OPTIMIZATION: All CT scans at this facility use at least one of these dose optimization te chniques: automated exposure control; mA and/or kV adjustment per patient size (includes targeted exa ms where dose is matched to clinical indication); or iterative reconstruction.
--- NOTE | 2020-09-02 03:01 | W.ED.GENAD ---
Discharge Plan Disposition Patient Disposition: AGAINST MEDICAL ADVICE Condition: Stable Discharge Details Clinical Impression: Myasthenic crisis, Shortness of breath, Upper back pain Primary Care Provider: Dorcas Moore ED Provider: Luis Swan Home Meds and New Rx's Prescriptions: Continued sertraline 50 mg tablet 50 mg PO DAILY RF: 0 prochlorperazine maleate [Compazine] 10 mg tablet 10 mg PO TID PRNRF: 0 azathioprine 50 mg tablet 250 mg PO DAILY Qty: 150 RF: 11 prednisone 20 mg tablet 20 mg PO DAILY Qty: 5 RF: 0 methylphenidate HCl 20 mg tablet 20 mg PO TID MDD 60mg Qty: 90 RF: 0 pyridostigmine bromide [Mestinon] 60 mg tablet See Rx Instructions PO TID Qty: 90 RF: 5 acetaminophen 325 mg capsule 325 mg PO ONCE PRNRF: 0 ibuprofen 200 mg capsule 200 mg PO Q6H PRNRF: 0 buprenorphine HCl 8 mg tablet, sublingual 6 mg SL DAILY RF: 0 Discharge Instructions Additional Instructions: We recommended you be admitted for your symptoms and you elected to leave against medical advice Follow up with your neurologist as soon as possible if you change your mind and want further evaluation and treatment, or you feel worsening shortness of breath return to the emergency department immediately Medical Decision Making 40 yo female with hx of myasthenia who comes in today with onset of upper back and chest discomfort and feeling as though she is short of breath. She saw Dr. Biswas her neurologist last week and was having difficulties speaking and with eyelid drooping and was started on prednisone 20mg daily for 5 days for which she finished yesterday. She states she did not notice a significant decrease in her symptoms and then around midnight woke up with upper back pain along with some anterior chest pain and feeling as though she can't take a deep breath. She denies fevers or cough. She is able to count to 16 in a single breath and in her neurologists note from last week was able to count to 24. She has clear lung sounds bilaterally though does seem to become fatigued when speaking more than 5-6 words at a time. She has no murmurs, jvd or leg swelling. I suspect her shortness of breath is due to myasthenic crisis and will need neurology consult, will evaluate for possible other causes of her symptoms as well with troponin, ecg unremarkable showing no stemi, and also cta given the back and chest pain to evaluate for dissection. No hypoxia or tachycardia so doubt PE at this time. labs and imaging unremarkable and she is stable at this time, NIF done by respiratory therapy is -50, will consult with neurology at [facility] with Dr. Stanton and after discussion of patient's presentation, symptoms seems likely myasthenic crisis and he did recommend starting IVIG and monitoring respiratory status closely, and could also increase pyridostigmine to 90mg QID. Discussed with pt and will discuss with hospitalist about admission for monitoring respiratory status shortly after Dr. Tidwell evaluated patient for admission she decided she did not want to stay. She has full capacity to make her own decisions and understands risks of leaving including and permanent disability requiring lifelong assistance and she is willing to accept these risks. She is leaving against my medical advise. I did discuss with her at length that if she changes her mind she can always return to the ED and that also if she gets worse in any way to return as well. Differential Diagnosis Differential Diagnosis: myasthenia crisis, dissection, nstemi Medical Records Medical records reviewed: Yes I reviewed the patient's medical records. Lab Data Lab results reviewed: Yes I reviewed the patient's lab results. ECG Data Attestation: I personally reviewed and interpreted this ECG (s) as follows: Prior ECG tracings: available for review Interpretation: sinus bradycardia, rate of 54, qtc 408, no acute st t wave ischemic findings HPI General Mode of arrival: ambulatory. Date/Time Provider Initiated Documentation: 09/02/20 02:41. Limitations to Documentation: no limitations. Information obtained by: patient. History of Present Illness 40 year old F presents to the emergency department with the chief complaint of upper back pain, described as moderate, Patient reports no radiation. and it has been constant. No relieving factors improve symptom(s), No exacerbating factors reported . Patient notes shortness of breath. Patient did receive the following treatments prior to arrival, none Related Data Home Medications Medication Instructions Recorded Confirmed acetaminophen 325 mg capsule 325 mg PO ONCE PRN 04/26/19 09/02/20 ibuprofen 200 mg capsule 200 mg PO Q6H PRN 04/26/19 09/02/20 sertraline 50 mg tablet 50 mg PO DAILY 06/05/20 09/02/20 azathioprine 50 mg tablet 250 mg PO DAILY #150 tab 08/28/20 09/02/20 buprenorphine HCl 8 mg sublingual 6 mg SL DAILY tab 08/28/20 09/02/20 tablet methylphenidate HCl 20 mg tablet 20 mg PO TID #90 tab MDD 60mg 08/28/20 09/02/20 prednisone 20 mg tablet 20 mg PO DAILY #5 tab 08/28/20 09/02/20 prochlorperazine maleate 10 mg 10 mg PO TID PRN 08/28/20 09/02/20 tablet pyridostigmine bromide 60 mg tablet See Rx Instructions PO TID #90 tab 08/28/20 09/02/20 Previous Rx's Medication Instructions Recorded azathioprine 50 mg tablet 250 mg PO DAILY #150 tab 08/28/20 methylphenidate HCl 20 mg tablet 20 mg PO TID #90 tab MDD 60mg 08/28/20 prednisone 20 mg tablet 20 mg PO DAILY #5 tab 08/28/20 pyridostigmine bromide 60 mg tablet See Rx Instructions PO TID #90 tab 08/28/20 Allergies Allergy/AdvReac Type Severity Reaction Status Date / Time adhesive tape Allergy Severe pealed her Verified 09/02/20 02:56 skin off when removing the tape. General Stated Complaint: Nk/Back Pain CHRIS: 2 Review of Systems All systems reviewed & are unremarkable except as noted in HPI and below Constitutional Constitutional: Denies chills and Denies fever(s) Respiratory Respiratory: Denies cough Gastrointestinal Gastrointestinal: Denies abdominal pain, Denies nausea and Denies vomiting Musculoskeletal Musculoskeletal: Denies joint swelling [facility] Medical History Abnormal uterine bleeding (AUB) (05/16/15) Carpal tunnel syndrome on left Depression Encounter for longterm current use of azathioprine Hypersomnia Incompetent cervix Irregular menses (01/12/14) Myasthenia gravis Polysubstance (including opioids) dependence with physiol dependence On Suboxone, pt states she has been tapering off this medication Thymoma Surgical History History of thymectomy Hx of breast implants, bilateral S/P dilatation and curettage S/P tubal ligation Social History (Updated 08/28/20 @ 11:56 by Gina Martinez LPN) Smoking/Tobacco Use Status: Current every day Tobacco Type: cigarettes Quit status: not considering quitting Smoking risk assessment performed?: Yes Alcohol Intake: never Drug use: Occasionally Substance use type: former substance user, marijuana and heroin Details: Occ. Pot Number of Children: 2 current occupation: Unemployed Current gender identity: female Do you feel safe at home: Yes Do you feel safe in your relationship?: Yes Female Reproductive History Menstrual control method: permanent sterilization History History 4 Para 2 Hx # Term Pregnancies Multiple births Hx # Pregnancies Ectopic pregnancies AB induced Hx Number of Living Children AB spontaneous Exam Const General: no acute distress Orientation: alert HENMT Head: normal to inspection Ears: external ears normal General nose exam: external nose normal Mouth: moist mucous membranes Eyes General: appearance normal, both eyes and all related structures Neck Neck: normal visual inspection Resp Effort & Inspection: normal respiratory effort Cardio Rate: regular rate Skin General skin exam: no rashes or lesions noted Neuro General: patient alert and patient oriented x3 Extrem General: normal to inspection Psych Mental Status: mental status grossly normal Course Vital Signs Vital signs: Vital Signs Temperature 36.3 C L 09/02/20 02:47 Pulse 57 L 09/02/20 02:47 Respiratory Rate 16 09/02/20 02:47 Blood Pressure 108/57 L 09/02/20 02:47 Pulse Oximetry 100 09/02/20 02:47 Temperature 36.3 C L 09/02/20 02:47 Temperature Source Skin 09/02/20 02:47 Pulse 57 L 09/02/20 02:47 Respiratory Rate 16 09/02/20 02:47 Blood Pressure 108/57 L 09/02/20 02:47 Blood Pressure Position Supine 09/02/20 02:47 Pulse Oximetry 100 09/02/20 02:47 Oxygen Delivery Method Room Air 09/02/20 02:47 Oxygen Flow Rate 0 09/02/20 02:47 Pain Level 7 09/02/20 02:47 Lab/Test Results Lab/Test Results: Laboratory Tests Range/Units 09/02/20 02:50 Urine Color (Yellow) Yellow Urine Clarity (Clear) Cloudy Urine pH (5-8) 6.0 Ur Specific [place] (1.005-1.025) >= 1.030 H Urine Protein (Negative) mg/dL Negative Urine Ketones (Negative) mg/dL Negative Urine Blood (Negative) Negative Urine Nitrite (Negative) Negative Urine Bilirubin (Negative) Negative Urine Urobilinogen (Up TO 0.2) EU/dL 0.2 Ur Leukocyte Esterase (Negative) Negative Urine Glucose (Negative) mg/dL Negative POC- Test(urine) Negative
[2020-09-02] MEDS: Ketorolac 15 MG/ML VIAL IVP (03:11)
[2020-09-02 03:34] LABS: PTT Activated 23.2 sec (21.0-27.5); Prothrombin Time 10.2 sec (9.3-11.0)
--- NOTE | 2020-09-02 03:36 | DI.VRAD_ITS ---
PROCEDURE INFORMATION: Exam: CTA Chest With Contrast Exam date and time: 09/02/2020 3:03 AM Age: 40 years old Clinical indication: Other: Chest and upper back pain TECHNIQUE: Imaging protocol: Computed tomographic angiography of the chest with contrast. 3D rendering (Not supervised by radiologist): MIP and/or 3D reconstructed images were created by the technologist. Contrast material: OMNI 350; Contrast volume: 100 ml; Contrast route: INTRAVENOUS (IV); COMPARISON: CT CHEST W 11/16/2019 3:23 PM FINDINGS: Pulmonary arteries: Normal. No pulmonary emboli. Aorta: Unremarkable. No aortic aneurysm. No aortic dissection. Lungs: Unremarkable. No consolidation. No masses. Pleural spaces: Unremarkable. No pneumothorax. No pleural effusion. Heart: Unremarkable. No cardiomegaly. No pericardial effusion. Lymph nodes: Unremarkable. No enlarged lymph nodes. Bones/joints: Unremarkable. No acute fracture. Soft tissues: Unremarkable. IMPRESSION: No acute findings. Dictated and Authenticated by: Luis Stewart MD. Ordering:DOM Smith MD
[2020-09-02 03:37] LABS: ALT 12 U/L (14-59); AST 12 U/L (15-37); Albumin 3.5 g/dL (3.4-5.0); Alkaline Phosphatase 61 U/L (46-116); Anion Gap 6.2 mmol/L (3-11); BUN 9 mg/dL (7-18); Bilirubin, Total 0.6 mg/dL (0.2-1.0); CO2 30.8 mmol/L (21.0-32.0); CREATININE 0.7 mg/dL (0.55-1.02); Calcium 8.6 mg/dL (8.5-10.1); Chloride 105 mmol/L (98-107); Glucose 102 mg/dL (74-106); Magnesium 1.9 mg/dL (1.8-2.4); Potassium 3.4 mmol/L (3.5-5.1); Sodium 142 mmol/L (136-145); Total Protein 6.9 g/dL (6.4-8.2)
[2020-09-02] MEDS: Omnipaque 350 MG/ML 100 ML BTL IJ (03:38)
[2020-09-02 03:39] LABS: Troponin I < 0.05 ng/mL (<0.06)
[2020-09-02] MEDS: Normal Saline - Diluent 50 ML VIAL IV (03:39)
[2020-09-02 03:40] LABS: Abs Immature Grans 0.07 10^3/uL (0.0-0.06); Absolute Basophil Count 0.09 10^3/uL (0.0-0.2); Absolute Lymphocyte Count 3.28 10^3/uL (1.2-3.4); Absolute Monocyte Count 0.39 10^3/uL (0.1-0.8); Absolute Neutrophil Count 4.46 10^3/uL (1.2-6.7); Basophils % 1.1; Eosinophils % 1.2; HCT 38.1 % (36.0-46.0); HGB 12.7 g/dL (11.2-15.7); Immature Grans % 0.8; Lymphocytes % 39.1; MCH 31.7 pg (27.0-33.0); MCHC 33.3 % (32.0-36.0); MPV 11.6 fL (8.0-11.0); Monocytes % 4.6; Neutrophils % 53.2; Nucleated RBC 0 %; Platelet Count 178 10^3/uL (130-400); RBC 4.01 10^6/uL (3.93-5.22); RDW 13.2 % (11.7-14.6); RDW-SD 46.4 fL; WBC 8.39 10^3/uL (4.4-10.8)
[2020-09-02 04:40] LABS: Source Nasal/Nares
[2020-09-02] MEDS: Acetaminophen 500 MG TAB 1000 MG PO (05:05)
--- NOTE | 2020-09-02 05:05 | W.MEDCONSULT ---
Date of service: 09/02/20 Time of Service: 05:05 Assessment and Plan Assessment and plan (1) Upper back pain: Status: Acute Assessment and plan: Not sure exactly what back pain represents, but no signs serious intra-thoracic pathology and I think it quite likely this is musculoskeletal, though precipitant remains unclear. The more significant issue is the SOB which appears to be flare of myasthenia. I would agree with admission, close observation of respiratory status and initiation of IVIG. However, patient states she wishes to go home, with f/u with her neurologist later today. I have so advised ER and they will arrange AMA discharge. History of Present Illness History of Present Illness Chief Complaint: back pain and SOB Narrative: 40 female with h/o myasthenia gravis. Reports some 1-2 weeks of feeling short of breath with exertion. Seen by Neurology last week, received 5 day pulse steroids. Comes in tonight with sudden onset midthoracic back pain, sharp, worse with deep breathing. No cough or recent unusual muscular exertions. Had single episode of vague chest discomfort as well but essentially this is a back pain. In ER w/u of note for NIF of -50 (normal -86), O2 sat 100% RA, normal CBC, K 3.4, negative troponin and chest CTA and normal EKG. Received APAP and Toradol for back pain and says it is somewhat better. Case reviewed with neurology who recommends admission for close observation of respiratory status, initiation IVIG and increase pyridostigmine. I was called to assess for admission. 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 Hypersomnia Incompetent cervix Irregular menses (01/12/14) Myasthenia gravis Polysubstance (including opioids) dependence with physiol dependence On Suboxone, pt states she has been tapering off this medication Thymoma Surgical History History of thymectomy Hx of breast implants, bilateral S/P dilatation and curettage S/P tubal ligation Social History Smoking/Tobacco Use Status: Current every day Tobacco Type: cigarettes Quit status: not considering quitting Smoking risk assessment performed?: Yes Alcohol Intake: never Drug use: Occasionally Substance use type: former substance user, marijuana and heroin Details: Occ. Pot Number of Children: 2 current occupation: Unemployed Current gender identity: female Do you feel safe at home: Yes Do you feel safe in your relationship?: Yes Female Reproductive History Menstrual control method: permanent sterilization History History 4 Para 2 Hx # Term Pregnancies Multiple births Hx # Pregnancies Ectopic pregnancies AB induced Hx Number of Living Children AB spontaneous Exam Narrative Exam Narrative: 108/57, 57, 36.3, 16, 100% RA. HEENT slight ptosis noted during interview; neck supple w/o JVD; lungs clear; heart sinus arrthymia, w/o MRG; abdomen soft and NT; etremities w/o edema, pulse 2+/=; neuro Ox3, lucid, speech somewhat slow, slight ptosis bilateral, strength 5/5 throughout Results Last Vital Signs Temp 36.3 C L 09/02/20 02:47 Pulse 57 L 09/02/20 02:47 Resp 16 09/02/20 02:47 BP 108/57 L 09/02/20 02:47 Pulse Ox 100 09/02/20 02:47 Labs Result diagrams: 09/02/20 03:06 09/02/20 03:06 Labs: Laboratory Results - last 24 hr 09/02/20 09/02/20 09/02/20 02:50 03:06 03:06 WBC 8.39 RBC 4.01 Hgb 12.7 Hct 38.1 MCV 95.0 MCH 31.7 MCHC 33.3 RDW 13.2 Plt Count 178 MPV 11.6 H Immature Gran % 0.8 Neutrophils % 53.2 Lymphocytes % 39.1 Monocytes % 4.6 Eosinophils % 1.2 Basophils % 1.1 Nucleated RBC % 0 Absolute Neutrophils 4.46 Absolute Lymphocytes 3.28 Absolute Monocytes 0.39 Absolute Eosinophils 0.10 Absolute Basophils 0.09 PT INR APTT Sodium 142 Potassium 3.4 L Chloride 105 Carbon Dioxide 30.8 Anion Gap 6.2 BUN 9 Creatinine 0.7 Estimated GFR/1.73 m2 >= 60.00 Glucose 102 Calcium 8.6 Magnesium 1.9 Total Bilirubin 0.6 AST 12 L ALT 12 L Alkaline Phosphatase 61 Troponin I < 0.05 Total Protein 6.9 Albumin 3.5 Urine Color Yellow Urine Clarity Cloudy Urine pH 6.0 Ur Specific [place] >= 1.030 H Urine Protein Negative Urine Ketones Negative Urine Blood Negative Urine Nitrite Negative Urine Bilirubin Negative Urine Urobilinogen 0.2 Ur Leukocyte Esterase Negative Urine Glucose Negative COVID-19 Source 09/02/20 09/02/20 03:06 04:35 WBC RBC Hgb Hct MCV MCH MCHC RDW Plt Count MPV Immature Gran % Neutrophils % Lymphocytes % Monocytes % Eosinophils % Basophils % Nucleated RBC % Absolute Neutrophils Absolute Lymphocytes Absolute Monocytes Absolute Eosinophils Absolute Basophils PT 10.2 INR 1.0 APTT 23.2 Sodium Potassium Chloride Carbon Dioxide Anion Gap BUN Creatinine Estimated GFR/1.73 m2 Glucose Calcium Magnesium Total Bilirubin AST ALT Alkaline Phosphatase Troponin I Total Protein Albumin Urine Color Urine Clarity Urine pH Ur Specific [place] Urine Protein Urine Ketones Urine Blood Urine Nitrite Urine Bilirubin Urine Urobilinogen Ur Leukocyte Esterase Urine Glucose COVID-19 Source Nasal/nares
[2020-09-02] MEDS: Lidocaine 5% Patch 1 PATCH TP (05:07)
[2020-09-02 05:36] LABS: COVID-19 PCR Negative (Negative)
== END 2020-09-02 05:33 | disposition left against medical advice (07) ==
LOC: ER 05:16
PROVIDERS: Emergency Provider Emergency Medicine; PCP Physician Assistant
DX: G70.01 Myasthenia gravis with (acute) exacerbation (principal); R06.02 Shortness of breath; M54.89 Other dorsalgia; Z53.29 Procedure and treatment not carried out because of patient's decision for other reasons; Z03.818 Encounter for observation for suspected exposure to other biological agents ruled out
CPT/HCPCS: 36415; 71275; 80053; 81025; 87635; 93005; 96374; 99285; 81003; 83735; 84484; 85025; 85610; 85730; 93010; 99252; 99284; J1885; J3490

== ENCOUNTER 2020-09-02 17:18 | Inpatient (IN) | payer MEDICAID, SELFPAY ==
[2020-09-02] VITALS (13 sets, daily range): BP systolic 83–99; BP diastolic 45–60; PULSE 49–98; RESP 12–18; TEMP 36.4–37; O2SAT 95–99
--- NOTE | 2020-09-02 | DI.RAD_ITS ---
Exam(s) XR THORACIC SPINE COMPLETE EXAM: XR THORACIC SPINE COMPLETE CLINICAL HISTORY: mid thoracic pain. TECHNIQUE: 2D digital imaging was performed. COMPARISON: No exams were available for comparison FINDINGS: BONES: There is no fracture or destructive lesion. The vertebral bodies and posterior elements are un remarkable. DISKS:There is a mild left convex scoliosis in the thoracolumbar spine. Mild degenerative changes ar e seen in the thoracic spine. SOFT TISSUE: Visualized lungs are clear. IMPRESSION: Mild degenerative changes in the midthoracic spine. DATA REPOSITORY: RADIATION DOSE DELIVERED:
--- NOTE | 2020-09-02 17:30 | RT.EKG_ITS ---
APPROVED REPORT Exam: Resting ECG Reason for Exam: SOB Patient Location: E HR:60 bpm ECG Measurements Heart Rate 60 AXIS MD 153 P 53 QRSd 88 QRS 45 QT 407 T 53 QTc 406 Conclusion NSR, no st elevation
--- NOTE | 2020-09-02 17:43 | W.ED.GENAD ---
Discharge Plan Disposition Patient Disposition: [facility] INPATIENT Condition: Stable Discharge Details Clinical Impression: Myasthenia gravis Admit Date/Time: 09/02/20 19:44 Admit Provider: Leoncio Tidwell Attending Provider: Leoncio Tidwell Primary Care Provider: Barrera Dsouza ED Provider: Carlie Altamirano Medical Decision Making 40-year-old female with history of myasthenia gravis presents to the ER with chief complaint of upper back pain shortness of breath eye twitching. She was seen here earlier this morning in the emergency room and was advised to be admitted. Patient declined admission and left AMA at that time. She was in contact with neurologist Dr. Biswas today who advised her to represent to the emergency room to be admitted for some IVIG infusions and observation. Please see review of systems and physical exam as noted above. Patient is hemodynamically stable here in the department 7:08 PM: Hospitalist paged, spoke with Dr. Tidwell regarding patient and request for admission he agrees to come down evaluate patient. Upon further questioning patient did not receive any steroids in the interim since her last visit, she only spoke with Dr. Biswas on the phone today. Dr. Tidwell here patient bedside for evaluation he agrees to except patient for admission and is placed admission holding orders. Plan is to transport patient to the floor. HPI General Mode of arrival: ambulatory. Date/Time Provider Initiated Documentation: 09/02/20 17:34. Limitations to Documentation: no limitations. Information obtained by: patient. HPI Narrative: 40-year-old female with history of myasthenia gravis presents to the ER with chief complaint of upper back pain shortness of breath eye twitching. She was seen here earlier this morning in the emergency room and was advised to be admitted. Patient declined admission and left AMA at that time. She was in contact with neurologist Dr. Biswas today who advised her to represent to the emergency room to be admitted for some IVIG infusions and observation. Related Data Home Medications Medication Instructions Recorded Confirmed acetaminophen 325 mg capsule 325 mg PO ONCE PRN 04/26/19 09/02/20 ibuprofen 200 mg capsule 200 mg PO Q6H PRN 04/26/19 09/02/20 sertraline 50 mg tablet 50 mg PO DAILY 06/05/20 09/02/20 azathioprine 50 mg tablet 250 mg PO DAILY #150 tab 08/28/20 09/02/20 buprenorphine HCl 8 mg sublingual 6 mg SL DAILY tab 08/28/20 09/02/20 tablet methylphenidate HCl 20 mg tablet 20 mg PO TID #90 tab MDD 60mg 08/28/20 09/02/20 prednisone 20 mg tablet 20 mg PO DAILY #5 tab 08/28/20 09/02/20 prochlorperazine maleate 10 mg 10 mg PO TID PRN 08/28/20 09/02/20 tablet pyridostigmine bromide 60 mg tablet See Rx Instructions PO TID #90 tab 08/28/20 09/02/20 Previous Rx's Medication Instructions Recorded azathioprine 50 mg tablet 250 mg PO DAILY #150 tab 08/28/20 methylphenidate HCl 20 mg tablet 20 mg PO TID #90 tab MDD 60mg 08/28/20 prednisone 20 mg tablet 20 mg PO DAILY #5 tab 08/28/20 pyridostigmine bromide 60 mg tablet See Rx Instructions PO TID #90 tab 08/28/20 Allergies Allergy/AdvReac Type Severity Reaction Status Date / Time adhesive tape Allergy Severe pealed her Verified 09/02/20 02:56 skin off when removing the tape. General Stated Complaint: Nk/Back Pain CHRIS: 4 Review of Systems Narrative: Constitutional: Negative for weight loss, alert and oriented, well groomed, normal body habitus, appears comfortable. Reports generalized fatigue. HEENT: Denies trauma, headaches, blurry vision, nasal discharge, sore throat, trouble swallowing. Chest: Denies chest pain, palpitations, irregular rhythm, hypertension. Respiratory: Denies cough, hemoptysis. Positive generalized shortness of breath GI: Denies abdominal pain, vomiting, diarrhea, constipation. Reports approximately 1 month ago nausea diarrhea none currently. : Denies dysuria, hematuria, flank pain, rectal bleeding. Neuro: Denies dizziness, blurry vision, weakness, syncope, headache or facial numbness. History of myasthenia gravis reports eye twitching. Musculoskeletal: Upper thoracic back pain tender with palpation no crepitus no step-off. Hematologic: Denies easy bruising, intolerance to heat or cold, hair loss. [facility] Medical History Abnormal uterine bleeding (AUB) (05/16/15) Carpal tunnel syndrome on left Depression Encounter for [place] current use of azathioprine Hypersomnia Incompetent cervix Irregular menses (01/12/14) Myasthenia gravis Polysubstance (including opioids) dependence with physiol dependence On Suboxone, pt states she has been tapering off this medication Thymoma Surgical History History of thymectomy Hx of breast implants, bilateral S/P dilatation and curettage S/P tubal ligation Social History Smoking/Tobacco Use Status: Current every day Tobacco Type: cigarettes Years smoked: 20 Tobacco: How many years used: 20 Quit status: not considering quitting Smoking risk assessment performed?: Yes Alcohol Intake: never Drug use: Occasionally Substance use type: former substance user and marijuana Details: Occ. Pot Number of Children: 2 current occupation: Unemployed Current gender identity: female Do you feel safe at home: Yes Do you feel safe in your relationship?: Yes Female Reproductive History Menstrual control method: permanent sterilization History History 4 Para 2 Hx # Term Pregnancies Multiple births Hx # Pregnancies Ectopic pregnancies AB induced Hx Number of Living Children AB spontaneous Exam Narrative Exam Narrative: Constitutional: Alert and oriented x3. Appears stated age. Normal body habitus. Head: Normocephalic, no trauma. Eyes: Pupils PERRLA, Red reflex noted, EOM's intact. Eyelids symmetrical without lesions, discharge, or swelling. ENT: Bilateral TM's WNL, External ear normal to inspection, no mastoid TTP, swelling, or erythema, Nasal turbinates WNL, no nasal discharge. Normal dentition, Posterior pharynx WNL, no exudate. Chest: RRR, Normal S1, S2, distal pulses intact. Resp: Lungs clear to auscultation bilaterally, no wheezes, rales, or rhonchi. Musculoskeletal: Normal gait, 5/5 strength to all four extremities. Tenderness to palpation upper thoracic back no crepitus no step-offs. Abdomen: Soft, nondistended nontender to palpation all four quadrants. Skin: No suspicious rashes or lesions. Capillary refill less than 2 sec. Neurologic: Cranial nerves II-XII intact. Alert and oriented x 3. DTR's intact. Hematologic/Lymphatic: No ecchymosis, no lymphadenopathy. Course Vital Signs Vital signs: Vital Signs Temperature 36.6 C 09/02/20 17:39 Pulse 98 H 09/02/20 17:39 Respiratory Rate 16 09/02/20 17:39 Blood Pressure 99/60 L 09/02/20 17:39 Pulse Oximetry 99 09/02/20 17:39 Temperature 36.6 C 09/02/20 17:39 Temperature Source Tympanic 09/02/20 17:39 Pulse 98 H 09/02/20 17:39 Respiratory Rate 16 09/02/20 17:39 Blood Pressure 99/60 L 09/02/20 17:39 Blood Pressure Position Sitting 09/02/20 17:39 Pulse Oximetry 99 09/02/20 17:39 Oxygen Delivery Method Room Air 09/02/20 17:39 Oxygen Flow Rate 0 09/02/20 17:39 Pain Level 5 09/02/20 17:39
--- NOTE | 2020-09-02 17:45 | DI.RAD_ITS ---
Exam(s) XR CHEST 2V PA LATERAL EXAM: XR CHEST 2V PA LATERAL CLINICAL HISTORY: SOB, Hx Myasthenia gravis TECHNIQUE: 2D digital imaging was performed. COMPARISON: No exams were available for comparison FINDINGS: MEDIASTINUM: Normal. HEART: Normal. PULMONARY VASCULATURE: Normal. LUNGS: Clear. PLEURAL SPACE: No pleural effusion or pneumothorax. BONE:Within normal limits for the patient's age. OTHER FINDINGS:Normal. IMPRESSION: No acute pulmonary findings. DATA REPOSITORY: RADIATION DOSE DELIVERED:
[2020-09-02 18:42] LABS: Abs Immature Grans 0.07 10^3/uL (0.0-0.06); Absolute Basophil Count 0.04 10^3/uL (0.0-0.2); Absolute Eosinophil Count 0.03 10^3/uL (0.0-0.7); Absolute Lymphocyte Count 1.68 10^3/uL (1.2-3.4); Absolute Monocyte Count 0.44 10^3/uL (0.1-0.8); Absolute Neutrophil Count 10.98 10^3/uL (1.2-6.7); Basophils % 0.3; Eosinophils % 0.2; HCT 38.7 % (36.0-46.0); HGB 12.8 g/dL (11.2-15.7); Immature Grans % 0.5; Lymphocytes % 12.7; MCH 31.7 pg (27.0-33.0); MCHC 33.1 % (32.0-36.0); MCV 95.8 fL (80-95); MPV 11.4 fL (8.0-11.0); Monocytes % 3.3; Nucleated RBC 0 %; Platelet Count 188 10^3/uL (130-400); RBC 4.04 10^6/uL (3.93-5.22); RDW 12.9 % (11.7-14.6); RDW-SD 45.9 fL; WBC 13.23 10^3/uL (4.4-10.8)
--- NOTE | 2020-09-02 18:45 | DI.VRAD_ITS ---
PROCEDURE INFORMATION: Exam: XR Chest Exam date and time: 09/02/2020 5:47 PM Age: 40 years old Clinical indication: Other: SOB, HX of myasthenia gravis TECHNIQUE: Imaging protocol: XR of the chest. Views: 2 views. COMPARISON: CT THORAX CTA 09/02/2020 3:18 AM FINDINGS: Lungs: Unremarkable. No consolidation. Pleural spaces: Unremarkable. No pleural effusion. No pneumothorax. Heart/Mediastinum: Unremarkable. No cardiomegaly. No widening of the mediastinum. Bones/joints: Unremarkable. IMPRESSION: No radiographic evidence for acute cardiopulmonary process. Dictated and Authenticated by: Shara Ramos MD. Ordering:WALTER Sexton MD
[2020-09-02 18:56] LABS: ALT 13 U/L (14-59); AST 9 U/L (15-37); Albumin 3.4 g/dL (3.4-5.0); Alkaline Phosphatase 63 U/L (46-116); Anion Gap 7.1 mmol/L (3-11); BUN 11 mg/dL (7-18); Bilirubin, Total 0.5 mg/dL (0.2-1.0); CO2 28.9 mmol/L (21.0-32.0); CREATININE 0.7 mg/dL (0.55-1.02); Calcium 8.7 mg/dL (8.5-10.1); Chloride 104 mmol/L (98-107); Glucose 96 mg/dL (74-106); Potassium 3.9 mmol/L (3.5-5.1); Sodium 140 mmol/L (136-145); Total Protein 6.7 g/dL (6.4-8.2)
[2020-09-02 18:57] LABS: Troponin I < 0.05 ng/mL (<0.06)
--- NOTE | 2020-09-02 19:25 | W.PM.HP.N ---
Date of service: 09/02/20 Time of Service: 19:25 Assessment and Plan Assessment and plan (1) Myasthenia gravis: Status: Chronic Assessment and plan: Myasthenia: I think this falls short of full crisis but has clearly had some decline, unresponsive to outpatient treatment. Will monitor NIFs, begin IVIG, increase Pyridostigmine to qid and consult neuro. As to the back pain I again have no clear sense of etiology and would continue to provisionally deem this as musculoskeletal. Perhaps worth T-spine series at this point. I further note mild leukocytosis. Unknown if this relates to other symptoms but no specific connection evident. Will track and w/u further as clinical situation dictates. History of Present Illness History of Present Illness Chief Complaint: back pain and SOB Narrative: 40 female with myasthenia gravis, seen earlier this morning for complaints of pleuritic type mid thoracic pain and subacute SOB. The w/u for the back pain was unrevealing, including negative CTA of chest, and it was felt likely this was musculoskeletal in origin. As to the SOB this was felt to be due to flare of MG and, having failed outpatient trial of pulse steroids she was advised to come in for monitoring and to begin IVIG. However she left AMA. She then spoke with her neurologist this afternoon who advised she return for admission and she is now agreeable. No new complaints. Continues to have a sharp mid thoracic pain with deep breathing, and continues with RAMÍREZ. W/u this evening of note fro neg trop, neg CXR, and white count 13. 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 retirement current use of azathioprine Hypersomnia Incompetent cervix Irregular menses (01/12/14) Myasthenia gravis Polysubstance (including opioids) dependence with physiol dependence On Suboxone, pt states she has been tapering off this medication Thymoma Surgical History History of thymectomy Hx of breast implants, bilateral S/P dilatation and curettage S/P tubal ligation Social History Smoking/Tobacco Use Status: Current every day Tobacco Type: cigarettes Years smoked: 20 Tobacco: How many years used: 20 Quit status: not considering quitting Smoking risk assessment performed?: Yes Alcohol Intake: never Drug use: Occasionally Substance use type: former substance user and marijuana Details: Occ. Pot Number of Children: 2 current occupation: Unemployed Current gender identity: female Do you feel safe at home: Yes Do you feel safe in your relationship?: Yes Female Reproductive History Menstrual control method: permanent sterilization History History 4 Para 2 Hx # Term Pregnancies Multiple births Hx # Pregnancies Ectopic pregnancies AB induced Hx Number of Living Children AB spontaneous Meds Allergies and Home Medications Allergies Allergy/AdvReac Type Severity Reaction Status Date / Time adhesive tape Allergy Severe pealed her Verified 09/02/20 02:56 skin off when removing the tape. Home Medications Medication Instructions Recorded Confirmed Type acetaminophen 325 mg capsule 325 mg PO ONCE PRN 04/26/19 09/02/20 History ibuprofen 200 mg capsule 200 mg PO Q6H PRN 04/26/19 09/02/20 History sertraline 50 mg tablet 50 mg PO DAILY 06/05/20 09/02/20 History azathioprine 50 mg tablet 250 mg PO DAILY #150 tab 08/28/20 09/02/20 Rx buprenorphine HCl 8 mg sublingual 6 mg SL DAILY tab 08/28/20 09/02/20 History tablet methylphenidate HCl 20 mg tablet 20 mg PO TID #90 tab MDD 60mg 08/28/20 09/02/20 Rx prednisone 20 mg tablet 20 mg PO DAILY #5 tab 08/28/20 09/02/20 Rx prochlorperazine maleate 10 mg 10 mg PO TID PRN 08/28/20 09/02/20 History tablet pyridostigmine bromide 60 mg tablet See Rx Instructions PO TID #90 tab 08/28/20 09/02/20 Rx Exam Narrative Exam Narrative: 97/46, 54, 36.4, 16, 97% RA. HEENT atraumatic; neck supple; lungs clear; heart respirophasic; back: diffuse mild tenderness in midthoracic spine and left paraspinal area; abdomen soft and NT; extremities w/o edema, pulse 2+/= neuro Ox3, lucid, slight sydni ptosis, able to count to 21 with single breath (reported as 16 in office last week), motor 5/5 save some blurring of vision with sustained lateral gaze (to left) Results Labs Result diagrams: 09/02/20 18:30 09/02/20 18:30 Labs: Laboratory Results - last 24 hr 09/02/20 09/02/20 18:30 18:30 WBC 13.23 H D RBC 4.04 Hgb 12.8 Hct 38.7 MCV 95.8 H MCH 31.7 MCHC 33.1 RDW 12.9 Plt Count 188 MPV 11.4 H Immature Gran % 0.5 Neutrophils % 83.0 Lymphocytes % 12.7 Monocytes % 3.3 Eosinophils % 0.2 Basophils % 0.3 Nucleated RBC % 0 Absolute Neutrophils 10.98 H Absolute Lymphocytes 1.68 Absolute Monocytes 0.44 Absolute Eosinophils 0.03 Absolute Basophils 0.04 Sodium 140 Potassium 3.9 Chloride 104 Carbon Dioxide 28.9 Anion Gap 7.1 BUN 11 Creatinine 0.7 Estimated GFR/1.73 m2 >= 60.00 Glucose 96 Calcium 8.7 Magnesium 2.0 Total Bilirubin 0.5 AST 9 L ALT 13 L Alkaline Phosphatase 63 Troponin I < 0.05 Total Protein 6.7 Albumin 3.4 Last Vital Signs Temp 36.4 C L 09/02/20 18:48 Pulse 54 L 09/02/20 18:48 Resp 16 09/02/20 18:48 BP 97/46 L 09/02/20 18:48 Pulse Ox 97 09/02/20 18:48 COVID-19 Screening Have you, or household traveled for leisure in last 14 days?: No Had IN PERSON contact w/suspected or confirmed C-19 person: No
--- NOTE | 2020-09-02 20:37 | DI.VRAD_ITS ---
PROCEDURE INFORMATION: Exam: XR Thoracic Spine Exam date and time: 09/02/2020 7:55 PM Age: 40 years old Clinical indication: Pain in thoracic spine; Patient HX: Mid-thoracic pain TECHNIQUE: Imaging protocol: XR of the thoracic spine. Views: 3 views. COMPARISON: No relevant prior studies available. FINDINGS: Bones/joints: No evidence for acute fracture or subluxation within the thoracic spine. Mild cervical spondylosis is seen most pronounced within the midthoracic spine. Minimal levoconvex rotary scoliosis centered at T11-T12. Soft tissues: Unremarkable. IMPRESSION: Mild thoracic spondylosis. No evidence for an acute fracture or subluxation. Dictated and Authenticated by: Shara Ramos MD. Ordering:SABRA Fang MD
[2020-09-02] MEDS: Acetaminophen 325 MG TAB 650 MG PO (21:32)
[2020-09-02] MEDS: predniSONE 20 MG TAB 40 MG PO (21:57)
[2020-09-02] MEDS: Nicotine 21 MG/24 HR PATCH (22:04)
[2020-09-02 22:56] LABS: Source Nasal/Nares
[2020-09-02 23:47] LABS: COVID-19 PCR Negative (Negative)
[2020-09-03] VITALS (34 sets, daily range): BP systolic 76–111; BP diastolic 55–77; PULSE 46–65; RESP 10–18; TEMP 36.5–37; O2SAT 95–100
[2020-09-03] MEDS: Prochlorperazine 10 MG TAB PO ×2 (03:32→08:50)
--- NOTE | 2020-09-03 07:57 | INITIAL_ITS ---
- If Service Date Differs Date of service: 09/03/20 Time of Service: 07:57 Care Management Initial Assess REASON FOR HOSPITALIZATION:: Myasthenia gravis PAST MEDICAL HISTORY/PAST SURGICAL HISTORY:: Abnormal uterine bleeding (AUB) (05/16/15). Carpal tunnel syndrome on left. Depression. 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 Hypersomnia. Incompetent cervix. Irregular menses (01/12/14). Myasthenia gravis. Polysubstance (including opioids) dependence with physiol dependence. On Suboxone, pt states she has been tapering off this medication. Thymoma. History of thymectomy. Hx of breast implants, bilateral. S/P dilatation and curettage. S/P tubal ligation PREVIOUS FUNCTIONAL STATUS/SOCIAL/FAMILY SUPPORTS:: Aaliyah resides in [place], she is , but has a significant other named Saravanan. She is independent at baseline and employed at [employer]. CURRENT FUNCTIONAL STATUS:: Aaliyah is sitting up in bed, readying for discharge, she shares no concerns. ADVANCE DIRECTIVES:: None on file at [facility]. Has patient been provided with info about the portal/API?: Yes Did the patient sign up for the portal?: No CODE STATUS:: Full Code INSURANCE COVERAGE / FINANCIAL ISSUES:: [employer] CURRENT HOME/COMMUNITY SERVICES/EQUIPMENT:: None, currently. PRIMARY CARE PHYSICIAN:: Barrera Dsouza POTENTIAL DISCHARGE NEEDS:: Follow up appointments. PATIENT/FAMILY EDUCATION NEEDS:: Review discharge instructions, discuss Ask Me Three. ANTICIPATED BARRIERS TO DISCHARGE:: None identified. TRANSPORTATION:: Via private vehicle with her SO. PLAN:: Aaliyah will return home when ready per MD. No additional services anticipated at this time. She will follow up with her PCP and plan of care as prescribed. She will transport via private vehicle with her SO, Saravanan.
--- NOTE | 2020-09-03 08:28 | W.NEUROCONSU ---
Date of service: 09/03/20 Time of Service: 08:28 Assessment and Plan Assessment and plan (1) Myasthenic crisis: Status: Acute (2) Upper back pain: Status: Acute Assessment and plan: Ms. Brewer is a 40 year-old, right-handed woman with Myasthenia Gravis who was admitted with: #1. Myasthenic crisis. Symptoms are overall mild. I don't think she is having respiratory involvement. Symptoms mostly improved from prednisone burst last week. Azathioprine increased last week, but will take weeks to months to kick in. Discussed IVIG infusion for more long acting suppression until azathioprine kicks in. ADRs discussed. She was agreeable. Will plan for 0.4g/kg/day x 3 days. First dose today. I think given lack of respiratory involvement, ok to d/c home and continue series outpatient pending eval of back pain and WBC. She will continue Mestinon 30mg TID for now along with azathioprine 250mg daily. #2. Acute high thoracic back pain. I am not sure what to make of this. Slight new elevation in WBC. Not sure that can be blamed on prednisone from last week. She was given 40mg prednisone last night, but after apparent blood draw. Will defer to primary team on work-up/management. She has f/up in neurology on 09/05/20. History of Present Illness History of Present Illness Chief Complaint: shortness of breath Narrative: Handedness: right. HPI: Ms. Brewer is a 40 year-old woman with myasthenia gravis who is well known to me. I recently saw her in clinic on 08/28/20 with 1 week of mild MG crisis manifested by ptosis and jaw fatigue - no SOB or orthopnea, no dysphagia. She was given Rx for prednisone 20mg daily x 5 days and re-started on Mestinon 30mg TID (hard to remember to take so using this variably). She increased azathioprine to 250mg daily. With the prednisone she noticed improvement in ptosis and jaw fatigue with some residual mild symptoms. She has been taking Mestinon variably as above - she isn't sure if this or the prednisone are the reasons for improvement. She presented to the ER yesterday early am 09/02/20 after awaking during the night with left upper thoracic back pain and difficulty breathing. Thus, concerns for advancing MG crisis. Recommendation was for admission, but she declined due to childcare needs. Then re-presented 09/02/20 evening for admission. Overnight she has been stable. Notes that the only reason she has a hard time breathing is due to the pain. Pain occurs with large breaths only. No orthopnea. Ptosis and jaw fatigue improved as above. No dysphagia. No generalized weakness. WBC 8.39 -> 13.23. K 3.4 -> 3.9. Trop x 2 neg. Renal/liver panel normal. UA = dehydrated. Thoracic Xray neg. CTA thoracic/aorta negative for acute findings. CXR no acute findings. MIP/NIF low last night -50 and -40 this am. Complicated by back pain and poor seal/refusal to plug nose. Not clinically symptomatic. 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 Hypersomnia Incompetent cervix Irregular menses (01/12/14) Myasthenia gravis Polysubstance (including opioids) dependence with physiol dependence On Suboxone, pt states she has been tapering off this medication Thymoma Surgical History History of thymectomy Hx of breast implants, bilateral S/P dilatation and curettage S/P tubal ligation Social History Smoking/Tobacco Use Status: Current every day Tobacco Type: cigarettes Years smoked: 20 Tobacco: How many years used: 20 Quit status: not considering quitting Smoking risk assessment performed?: Yes Alcohol Intake: never Drug use: Occasionally Substance use type: former substance user and marijuana Details: Occ. Pot Number of Children: 2 current occupation: Unemployed Current gender identity: female Do you feel safe at home: Yes Do you feel safe in your relationship?: Yes Female Reproductive History Menstrual control method: permanent sterilization History History 4 Para 2 Hx # Term Pregnancies Multiple births Hx # Pregnancies Ectopic pregnancies AB induced Hx Number of Living Children AB spontaneous Visit Medication and Allergies Active Medications Generic Name Dose Route Start Last Admin Trade Name Alf PRN Reason Stop Dose Admin Acetaminophen 650 mg 09/02/20 19:44 09/02/20 21:32 Acetaminophen 325 Mg Tab PO 650 mg Q4H PRN PRN Administration Azathioprine 250 mg 09/03/20 08:30 Azathioprine 50 Mg Tab PO DAILY [facility] Buprenorphine HCl 6 mg 09/03/20 08:30 Buprenorphine 2 Mg Sublingual Tablet SL DAILY [facility] Dimethicone/Zinc Oxide 0 gm 09/02/20 19:44 Jozef Protect Cream 142 Gm Tube TP PRN PRN Sodium Chloride 500 mls @ 0 mls/hr 09/02/20 17:41 Saline 500ml Bag IV PRN PRN As Directed Immune Globulin 20 gm in 200 mls @ 0 mls/hr 09/03/20 08:00 Privigen 10% IVPB 09/05/20 08:01 DAILY@0800 [facility] Protocol Immune Globulin 10 gm in 100 mls @ 0 mls/hr 09/03/20 08:00 Privigen 10% IVPB 09/05/20 08:01 DAILY@0800 [facility] Protocol IV Miscellaneous Supplies 1 each 09/02/20 17:45 Iv Access IV DIRECTED [facility] Ibuprofen 200 mg 09/02/20 21:09 Ibuprofen 200 Mg Tab PO Q6H PRN PRN Melatonin 3 - 6 mg 09/02/20 19:44 Melatonin 3 Mg Tab PO HS PRN PRN Methylphenidate HCl 20 mg 09/03/20 08:00 Methylphenidate 10 Mg Tab PO TID@0800,1200,1600 [facility] Nicotine 21 mg 09/03/20 08:30 Nicotine 21 Mg/24 Hr Patch TD DAILY [facility] Prochlorperazine Maleate 10 mg 09/02/20 19:49 09/03/20 03:32 Prochlorperazine 10 Mg Tab PO 10 mg TID PRN PRN Administration Pyridostigmine [place] 30 mg 09/03/20 08:30 Pyridostigmine 60 Mg Tab PO TID [facility] Sertraline HCl 50 mg 09/03/20 08:30 Sertraline 50 Mg Tab PO DAILY [facility] Sodium Chloride 0 ml 09/02/20 17:41 Normal Saline Flush 10 Ml Syr IVP PRN PRN Allergies adhesive tape Allergy (Severe, Verified 09/02/20 02:56) pealed her skin off when removing the tape. Exam Narrative Exam Narrative: Physical Exam: Constitutional: Patient of apparent stated age, well nourished, well developed, no acute distress Neck: Supple, no meningismus CV: RRR, S1, S2, no murmur Resp: CTAB, able to count to 30+ on one breath Abd: Soft, nontender, nondistended Neuro: MS/Language/Speech: Alert, oriented, clear language (fluency and comprehension), no dysarthria CN: PERRL, EOMI, visual fernandez full, trigeminal sensation intact, no facial asymmetry - no ptosis; no Cogen's lid twitch; hearing intact to whisper, palate elevates symmetrically, tongue protrudes midline, SCM and trap strength intact Motor: Normal bulk and tone. FMM intact, no pronator drift. 5/5 strength in bilateral upper and lower extremities. Neck Ext/Flex 5/5 each. Coordination: Finger to nose performed without dysmetria Gait: not tested Results Last Vital Signs Temp 36.5 C 09/03/20 04:00 Pulse 53 L 09/03/20 06:01 Resp 17 09/03/20 06:01 BP 101/66 09/03/20 06:01 Pulse Ox 97 09/03/20 03:01 Labs Result diagrams: 09/02/20 18:30 09/02/20 18:30 Labs: Laboratory Results - last 24 hr 09/02/20 09/02/20 09/02/20 18:30 18:30 20:41 WBC 13.23 H D RBC 4.04 Hgb 12.8 Hct 38.7 MCV 95.8 H MCH 31.7 MCHC 33.1 RDW 12.9 Plt Count 188 MPV 11.4 H Immature Gran % 0.5 Neutrophils % 83.0 Lymphocytes % 12.7 Monocytes % 3.3 Eosinophils % 0.2 Basophils % 0.3 Nucleated RBC % 0 Absolute Neutrophils 10.98 H Absolute Lymphocytes 1.68 Absolute Monocytes 0.44 Absolute Eosinophils 0.03 Absolute Basophils 0.04 Sodium 140 Potassium 3.9 Chloride 104 Carbon Dioxide 28.9 Anion Gap 7.1 BUN 11 Creatinine 0.7 Estimated GFR/1.73 m2 >= 60.00 Glucose 96 Calcium 8.7 Magnesium 2.0 Total Bilirubin 0.5 AST 9 L ALT 13 L Alkaline Phosphatase 63 Troponin I < 0.05 Cancelled Total Protein 6.7 Albumin 3.4 COVID-19 Source SARS-CoV-2 (PCR) 09/02/20 20:48 WBC RBC Hgb Hct MCV MCH MCHC RDW Plt Count MPV Immature Gran % Neutrophils % Lymphocytes % Monocytes % Eosinophils % Basophils % Nucleated RBC % Absolute Neutrophils Absolute Lymphocytes Absolute Monocytes Absolute Eosinophils Absolute Basophils Sodium Potassium Chloride Carbon Dioxide Anion Gap BUN Creatinine Estimated GFR/1.73 m2 Glucose Calcium Magnesium Total Bilirubin AST ALT Alkaline Phosphatase Troponin I Total Protein Albumin COVID-19 Source Nasal/nares SARS-CoV-2 (PCR) Negative
[2020-09-03] MEDS: Ibuprofen 200 MG TAB PO (08:50)
[2020-09-03] MEDS: Normal Saline Flush 10 ML SYR IVP (08:51)
--- NOTE | 2020-09-03 09:01 | NUR.NOTE ---
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 PT stated she really wants a shower. I let her know as soon as I was able to I would, but for now she has 2 wash clothes and 2 towels with all other personal hygiene things by sink. Also let PT know to ring when she was done or needed help. Nursing Note:
[2020-09-03] MEDS: IMMUNE GLOBULIN 20 GM/200 ML BTL IVPB (09:10)
[2020-09-03] MEDS: Sertraline 50 MG TAB PO (09:23)
[2020-09-03] MEDS: azaTHIOprine 50 MG TAB 250 MG PO (09:23)
[2020-09-03] MEDS: Acetaminophen 325 MG TAB 650 MG PO (09:24)
[2020-09-03] MEDS: Methylphenidate 10 MG TAB 20 MG PO (09:24)
[2020-09-03] MEDS: Nicotine 21 MG/24 HR PATCH TD (09:24)
[2020-09-03] MEDS: IMMUNE GLOBULIN 10 GM/100 ML BTL IVPB (10:48)
[2020-09-03] MEDS: Buprenorphine/Naloxone 8 mg/2 mg FILM 2 EACH SL (10:55)
--- NOTE | 2020-09-03 12:27 | DSE_ITS ---
Date of service: 09/03/20 Time of Service: 12:27 DS: Diagnosis Discharge Diagnosis (1) Myasthenic crisis: Status: Acute (2) Upper back pain: Status: Acute Discharge Plan Disposition Patient Disposition: HOME Condition: Stable Discharge Details Reason For Visit: Myasthenia Gravis Admit Date/Time: 09/02/20 19:44 Admit Provider: Leoncio Tidwell Attending Provider: Leoncio Tidwell Primary Care Provider: Barrera Dsouza Hospital Course Hospital Course: 40 female with myasthenia gravis, seen earlier this morning for complaints of pleuritic type mid thoracic pain and subacute SOB. The w/u for the back pain was unrevealing, including negative CTA of chest, and it was felt likely this was musculoskeletal in origin. As to the SOB this was felt to possibly be due to flare of MG and, having failed outpatient trial of pulse steroids she was advised to come in for monitoring and to begin IVIG. However she left AMA. She then spoke with her neurologist on the afternoon of admission who advised she return for admission and she is now agreeable. She described sharp Left subscapular pain with deep breathing, and continues with RAMÍREZ. Work up of note for neg trop, neg CXR, and white count 13. Neurology consulted. Her azathioprine was increased the week before this admission and she was placed on a prednisone burst. She received an infusion of IVIG and was scheduled for 2 more infusions for the 2 days following d/c. Her shortness of air was felt more to be related to the myofascial back pain; sharp pain with a deep breath causing her to take shallow breaths. Ibuprofen given. A lidoderm patch was initiated but it will not be prescribed for home d/t lack of insurance coverage for the patch. She will follow up with Dr. Biswas as per previous scheduled appt on 09/05/20. Home Meds and New Rx's Prescriptions: New acetaminophen [Tylenol] 325 mg Tablet 650 mg PO Q4H PRN PRNQty: 0 RF: 0 Continued sertraline 50 mg tablet 50 mg PO DAILY RF: 0 prochlorperazine maleate [Compazine] 10 mg tablet 10 mg PO TID PRNRF: 0 azathioprine 50 mg tablet 250 mg PO DAILY Qty: 150 RF: 11 methylphenidate HCl 20 mg tablet 20 mg PO TID MDD 60mg Qty: 90 RF: 0 pyridostigmine bromide [Mestinon] 60 mg tablet See Rx Instructions PO TID Qty: 90 RF: 5 acetaminophen 325 mg capsule 325 mg PO ONCE PRNRF: 0 ibuprofen 200 mg capsule 200 mg PO Q6H PRNRF: 0 buprenorphine-naloxone [Suboxone] 2-0.5 mg film 2 film sublingual DAILY RF: 0 buprenorphine-naloxone [Suboxone] 12-3 mg film 1 film sublingual DAILY RF: 0 Discontinued prednisone 20 mg tablet 20 mg PO DAILY Qty: 5 RF: 0 Discharge Instructions Activity:: Activity as Tolerated Equipment/Supplies:: No Equipment Needed Diet:: As Tolerated Discharge Orders Discharge Orders: Discharge Order (Routine); Ordered 09/03/20 Ordered By: Jatin Winters DS: Summary Time Spent with Patient providing and/or coordinating discharge services: Less than 30 minutes Status at Discharge Functional status at discharge: independent ambulation Overall status at discharge: patient is progressing back to baseline Mental Status: mental status grossly normal Speech and Movement: speech and movement normal Mood: congruent mood Affect: normal affect Exam Const General: cooperative and no acute distress Nutritional Appearance: average body habitus Orientation: alert and oriented x3 Resp Effort & Inspection: normal respiratory effort Auscultation: clear to auscultation bilaterally Cardio Rate: regular rate Rhythm: regular rhythm Heart Sounds: S1 normal and S2 normal GI Palpation: soft and nontender Back/Spine/Pelvis Back: back tenderness (Left subscapular area with deep palpation) Extrem General: no pedal edema and no calf tenderness Psych Appearance: grossly normal Mental Status: mental status grossly normal Speech and Movement: speech and movement normal Mood: congruent mood Affect: normal affect DS: Data Vitals/I&O Vitals and I&O: Vital Signs Temperature 36.5 C 09/03/20 04:00 Temperature Source Temporal Artery Scan 09/03/20 04:00 Pulse 49 L 09/03/20 10:57 Pulse Rhythm Regular 09/02/20 18:48 Pulse Strength Normal 09/02/20 18:48 Pulse 49 L 09/03/20 10:57 Respiratory Rate 12 09/03/20 10:57 Respiratory Effort 09/03/20 04:00 Respiratory Depth Normal 09/02/20 18:48 Respiratory Pattern Normal 09/02/20 18:48 Blood Pressure 99/59 L 09/03/20 10:57 Blood Pressure Mean 68 09/03/20 10:57 Blood Pressure Position Sitting 09/02/20 17:39 Pulse Oximetry 96 09/03/20 10:57 Oxygen Delivery Method Room Air 09/03/20 04:00 Oxygen Flow Rate 0 09/03/20 04:00 Pain Level 4 09/03/20 09:24 Intake & Output 09/02/20 09/03/20 09/03/20 23:59 11:59 23:59 Intake Total 250 / 250 377.7 / 617.7 240 / 617.7 Output Total 1250 / 1250 Balance 250 / 250 -872.3 / -632.3 240 / -632.3 Weight 68.039 kg Intake: IV 10 10 137.7 / 137.7 Oral 240 / 240 240 / 480 240 / 480 Output: Urine 1250 / 1250 Other: Urine Color Yellow Urine Appearance Clear Urine Odor Normal Voiding Methods Bedside Commode Data Completed and Pending Labs on day of discharge: Labs from last 24 hours 09/02/20 09/02/20 09/02/20 20:48 20:41 18:30 WBC 13.23 H D RBC 4.04 Hgb 12.8 Hct 38.7 MCV 95.8 H MCH 31.7 MCHC 33.1 RDW 12.9 Plt Count 188 MPV 11.4 H Immature Gran % 0.5 Neutrophils % 83.0 Lymphocytes % 12.7 Monocytes % 3.3 Eosinophils % 0.2 Basophils % 0.3 Nucleated RBC % 0 Absolute Neutrophils 10.98 H Absolute Lymphocytes 1.68 Absolute Monocytes 0.44 Absolute Eosinophils 0.03 Absolute Basophils 0.04 Sodium Potassium Chloride Carbon Dioxide Anion Gap BUN Creatinine Estimated GFR/1.73 m2 Glucose Calcium Magnesium Total Bilirubin AST ALT Alkaline Phosphatase Troponin I Cancelled Total Protein Albumin COVID-19 Source Nasal/nares SARS-CoV-2 (PCR) Negative 09/02/20 18:30 WBC RBC Hgb Hct MCV MCH MCHC RDW Plt Count MPV Immature Gran % Neutrophils % Lymphocytes % Monocytes % Eosinophils % Basophils % Nucleated RBC % Absolute Neutrophils Absolute Lymphocytes Absolute Monocytes Absolute Eosinophils Absolute Basophils Sodium 140 Potassium 3.9 Chloride 104 Carbon Dioxide 28.9 Anion Gap 7.1 BUN 11 Creatinine 0.7 Estimated GFR/1.73 m2 >= 60.00 Glucose 96 Calcium 8.7 Magnesium 2.0 Total Bilirubin 0.5 AST 9 L ALT 13 L Alkaline Phosphatase 63 Troponin I < 0.05 Total Protein 6.7 Albumin 3.4 COVID-19 Source SARS-CoV-2 (PCR) [facility] Medical History Abnormal uterine bleeding (AUB) (05/16/15) Carpal tunnel syndrome on left 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 Hypersomnia Incompetent cervix Irregular menses (01/12/14) Myasthenia gravis Polysubstance (including opioids) dependence with physiol dependence On Suboxone, pt states she has been tapering off this medication Thymoma Surgical History History of thymectomy Hx of breast implants, bilateral S/P dilatation and curettage S/P tubal ligation Social History Smoking/Tobacco Use Status: Current every day Tobacco Type: cigarettes Years smoked: 20 Tobacco: How many years used: 20 Quit status: not considering quitting Smoking risk assessment performed?: Yes Alcohol Intake: never Drug use: Occasionally Substance use type: former substance user and marijuana Details: Occ. Pot Number of Children: 2 current occupation: Unemployed Current gender identity: female Do you feel safe at home: Yes Do you feel safe in your relationship?: Yes Female Reproductive History Menstrual control method: permanent sterilization History History 4 Para 2 Hx # Term Pregnancies Multiple births Hx # Pregnancies Ectopic pregnancies AB induced Hx Number of Living Children AB spontaneous
== END 2020-09-03 14:03 | disposition home or self-care (01) | DRG 57 ==
LOC: ER 20:05 → ICU 20:41
PROVIDERS: Admitting Provider General Practice; Emergency Provider Registered Nurse Emergency; PCP Physician Assistant; Visit Provider General Practice
DX: G70.01 Myasthenia gravis with (acute) exacerbation (principal); F11.20 Opioid dependence, uncomplicated; M54.6 Pain in thoracic spine; F32.9 Major depressive disorder, single episode, unspecified; G56.02 Carpal tunnel syndrome, left upper limb; Z79.899 Other long term (current) drug therapy; G47.10 Hypersomnia, unspecified; R06.02 Shortness of breath; M54.89 Other dorsalgia; Z53.29 Procedure and treatment not carried out because of patient's decision for other reasons; Z03.818 Encounter for observation for suspected exposure to other biological agents ruled out
CPT/HCPCS: 36415; 80053; 87635; 93005; 99285; 71046; 72072; 83735; 84484; 85025; 93010; 99222; 99238; 99284; J1459; J7500; J7512

== ENCOUNTER 2020-09-11 01:49 | Outpatient (RCR) | payer MEDICAID, SELFPAY ==
[2020-09-10 10:17] VITALS: BP 108/64; PULSE 64; RESP 17; TEMP 36.6; O2SAT 99
[2020-09-10] MEDS: IMMUNE GLOBULIN 10 GM/100 ML BTL 1.36 GM IVPB (10:17)
[2020-09-10] MEDS: Normal Saline Flush 10 ML SYR IVP (10:18)
[2020-09-10 10:32] VITALS: BP 102/65; PULSE 71; RESP 17; TEMP 36.6; O2SAT 98
[2020-09-10 11:02] VITALS: BP 105/67; PULSE 70; RESP 17; TEMP 36.6; O2SAT 98
[2020-09-10] MEDS: IMMUNE GLOBULIN 20 GM/200 ML BTL 2.72 GM IVPB (11:12)
[2020-09-10 11:32] VITALS: BP 106/59; PULSE 73; RESP 17; TEMP 36.6; O2SAT 100
[2020-09-10 12:03] VITALS: BP 106/72; PULSE 66; RESP 16; TEMP 36; O2SAT 99
[2020-09-11 10:04] VITALS: BP 110/78; PULSE 64; RESP 17; TEMP 36.4; O2SAT 100
[2020-09-11] MEDS: Normal Saline Flush 10 ML SYR IVP (10:05)
[2020-09-11] MEDS: IMMUNE GLOBULIN 10 GM/100 ML BTL IVPB (10:05)
[2020-09-11 10:20] VITALS: BP 110/78; PULSE 58; RESP 16; TEMP 36.5; O2SAT 98
[2020-09-11 10:35] VITALS: BP 105/74; PULSE 55; RESP 17; TEMP 36.9; O2SAT 99
[2020-09-11 11:05] VITALS: BP 103/66; PULSE 60; RESP 17; TEMP 36.8; O2SAT 99
[2020-09-11] MEDS: IMMUNE GLOBULIN 20 GM/200 ML BTL IVPB (11:05)
[2020-09-11 11:35] VITALS: BP 99/66; PULSE 56; RESP 16; TEMP 36.6; O2SAT 100
[2020-09-11 12:00] VITALS: BP 109/74; PULSE 59; RESP 18; TEMP 36.5; O2SAT 100
== END 2020-09-18 23:59 | disposition home or self-care (01) ==
LOC: INF 01:49
PROVIDERS: PCP Physician Assistant; Visit Provider Psychiatry & Neurology Neurology
DX: G70.00 Myasthenia gravis without (acute) exacerbation (principal)
CPT/HCPCS: 96365; 96366; J1459

== ENCOUNTER 2021-01-09 02:23 | Outpatient (RCR) | payer MEDICAID, SELFPAY ==
[2021-01-07 07:35] VITALS: BP 122/82; PULSE 84; RESP 16; TEMP 36.9; O2SAT 98
[2021-01-07 07:45] VITALS: BP 109/74; PULSE 75; RESP 16; TEMP 36.7; O2SAT 98
[2021-01-07] MEDS: IMMUNE GLOBULIN 10 GM/100 ML BTL IVPB (07:46)
[2021-01-07 08:20] VITALS: BP 111/75; PULSE 68; RESP 18; TEMP 37.2; O2SAT 98
[2021-01-07] MEDS: IMMUNE GLOBULIN 20 GM/200 ML BTL IVPB (08:47)
[2021-01-07 08:50] VITALS: BP 116/74; PULSE 66; RESP 16; TEMP 37.1; O2SAT 98
[2021-01-07 09:20] VITALS: BP 120/76; PULSE 68; RESP 18; TEMP 37.1; O2SAT 99
[2021-01-08 07:35] VITALS: BP 130/80; PULSE 53; RESP 16; TEMP 36.1; O2SAT 100
[2021-01-08] MEDS: IMMUNE GLOBULIN 10 GM/100 ML BTL IVPB (07:36)
[2021-01-08] MEDS: Normal Saline Flush 10 ML SYR IVP (07:36)
[2021-01-08 07:55] VITALS: BP 113/77; PULSE 67; RESP 18; TEMP 36.5; O2SAT 99
[2021-01-08 08:10] VITALS: BP 113/76; PULSE 67; RESP 16; TEMP 36.6; O2SAT 98
[2021-01-08] MEDS: IMMUNE GLOBULIN 20 GM/200 ML BTL IVPB (08:33)
[2021-01-08 08:40] VITALS: BP 123/77; PULSE 62; RESP 16; TEMP 35.8; O2SAT 100
[2021-01-08 09:10] VITALS: BP 124/81; PULSE 60; RESP 16; TEMP 35.9; O2SAT 99
[2021-01-08 09:30] VITALS: BP 127/87; PULSE 58; RESP 17; TEMP 35.8; O2SAT 100
[2021-01-09] MEDS: Normal Saline Flush 10 ML SYR IVP (07:46)
[2021-01-09] MEDS: IMMUNE GLOBULIN 10 GM/100 ML BTL IVPB (07:46)
[2021-01-09 07:52] VITALS: BP 121/86; PULSE 60; RESP 18; TEMP 35; O2SAT 98
[2021-01-09 08:10] VITALS: BP 127/82; PULSE 54; RESP 17; TEMP 35.2; O2SAT 99
[2021-01-09 08:25] VITALS: BP 128/81; PULSE 54; RESP 17; TEMP 36.6; O2SAT 100
[2021-01-09 08:26] LABS: ALT 17 U/L (14-59); AST 17 U/L (15-37); CREATININE 0.8 mg/dL (0.55-1.02); GGT 9 U/L (5-55)
[2021-01-09 08:50] VITALS: BP 122/81; PULSE 53; RESP 17; TEMP 35.6; O2SAT 100
[2021-01-09] MEDS: IMMUNE GLOBULIN 20 GM/200 ML BTL IVPB (08:51)
[2021-01-09 09:01] LABS: Ferritin 44 ng/mL (8-252)
[2021-01-09 09:20] VITALS: BP 115/77; PULSE 55; RESP 17; TEMP 36.5; O2SAT 98
== END 2021-01-19 23:59 | disposition home or self-care (01) ==
LOC: INF 02:23
PROVIDERS: PCP Physician Assistant; Visit Provider Psychiatry & Neurology Neurology
DX: F11.20 Opioid dependence, uncomplicated (principal); G70.01 Myasthenia gravis with (acute) exacerbation; M25.561 Pain in right knee
CPT/HCPCS: 36415; 96365; 96366; 82565; 82728; 82977; 84450; 84460; J1459

== ENCOUNTER 2021-01-10 19:41 | Emergency (ER) | payer MEDICAID, SELFPAY ==
[2021-01-10] VITALS (12 sets, daily range): BP systolic 96–111; BP diastolic 61–71; PULSE 60–84; RESP 16–18; TEMP 36.2–36.5; O2SAT 95–100
--- NOTE | 2021-01-10 20:00 | DI.CT_ITS ---
Exam(s) CT BRAIN CTA EXAM: CT BRAIN CTA CLINICAL HISTORY: headache. TECHNIQUE: Imaging Protocol: Axial CT angiography was performed with multi-slice acquisition and mu lti-planar and/or 3D reconstructions. CONTRAST MATERIAL: Intravenous: Omnipaque 350 Contrast volume:structured data in ml Intravenous: Omnipaque 350 Contrast volume:100 ml COMPARISON: No exams were available for comparison FINDINGS: CT Head W/O: Ventricles and Extra axial spaces: Normal in size and morphology for the patient's age. Hemorrhage: None. Cerebral parenchyma: Normal. No abnormal enhancement. Midline shift: None. Brainstem/Cerebellum: Normal. Calvarium: Normal. Visualized Paranasal sinuses/Mastoids: Clear. Soft Tissues: Unremarkable. CTA Brain W: Internal Carotid Arteries: Petrous: Normal. Cavernous: Normal. Cerebral: Normal. Middle Cerebral Arteries: Right: No aneurysm, occlusion or significant stenosis. Left: No aneurysm, occlusion or significant stenosis. Anterior Cerebral Arteries: Right: No aneurysm, occlusion or significant stenosis. Left: No aneurysm, occlusion or significant stenosis. Posterior cerebral Arteries: Right: No aneurysm, occlusion or significant stenosis. Left: No aneurysm, occlusion or significant stenosis. Vertebral Arteries: Right: No aneurysm, occlusion or significant stenosis. Left: No aneurysm, occlusion or significant stenosis. Basilar Artery: No aneurysm, occlusion or significant stenosis. IMPRESSION: 1. Normal CTA examination of the [place]. 2. Unremarkable CT Head. RADIATION DOSE DELIVERED: 1,830.94mGy.cm Total DLP 1,830.94mGy.cm Total DLP DATA REPOSITORY: All CT scans at this facility are submitted to the National Radiology Data Registry (NRDR) Dose Index Registry (DIR) with the [employer] ([employer]). RADIATION OPTIMIZATION: All CT scans at this facility use at least one of these dose optimization te chniques: automated exposure control; mA and/or kV adjustment per patient size (includes targeted exa ms where dose is matched to clinical indication); or iterative reconstruction.
--- NOTE | 2021-01-10 20:08 | W.ED.GENAD ---
Discharge Plan Disposition Patient Disposition: HOME Condition: Stable Discharge Details Clinical Impression: Headache Primary Care Provider: Barrera Dsouza ED Provider: Luis Swan Home Meds and New Rx's Prescriptions: New pbfnsgdvvk-ugnxjdapdrabk-lkqj [Fioricet] 50-300-40 mg capsule 1 cap PO TID PRN (Reason: pain) Qty: 30 RF: 0 Continued sertraline 50 mg tablet 50 mg PO DAILY RF: 0 prochlorperazine maleate [Compazine] 10 mg tablet 10 mg PO TID PRNRF: 0 azathioprine 50 mg tablet 250 mg PO DAILY Qty: 150 RF: 11 pyridostigmine bromide [Mestinon] 60 mg tablet See Rx Instructions PO TID Qty: 90 RF: 5 methylphenidate HCl 20 mg tablet 20 mg PO TID MDD 60mg Qty: 90 RF: 0 prednisone 20 mg tablet See Rx Instructions PO .COMPLEX Qty: 12 RF: 0 ibuprofen 200 mg capsule 200 mg PO Q6H PRNRF: 0 acetaminophen [Tylenol] 325 mg Tablet 650 mg PO Q4H PRN PRNQty: 0 RF: 0 buprenorphine-naloxone [Suboxone] 12-3 mg film 1 film sublingual DAILY RF: 0 Discharge Instructions Additional Instructions: your blood work and cat scan did not show any concerning findings at this time follow up with your primary care provider within 1 week you can take 600mg ibuprofen every 6 hours as needed for pain return to the emergency department if you feel more ill, have fevers or persistent vomit return to the emergency department Medical Decision Making 40 yo female with history of myasthenia gravis and had recurrent eye ptosis and started ivig infusions, had a dose yesterday, comes in with headache since waking up yesterday. Denies any fevers, chills, neck stiffness. She states she gets migraines every few years and is not sure if this is similar or the worst of her life. She localizes the pain to the anterior portion of the head. She has no signs of trauma. No temporal artery tenderness. PERRL, eomi, Cn II-XII intact, left eye ptosis noted. No gross motor or sensation deficits. She has no menigismus, clear lungs, no abdominal tenderness. Give her pain that is infrequent for her will obtain ct and cta to evaluate for possible hemorrhage vs aneurysm. Has no fevers or meninismus so doubt liquid sugar melter infection. Will treat her symptomatically with pain meds and antiemetics. labs and imaging unremarkable. She is sleeping on reassessment in no distress and awakens easily states pain dramatically reduced. Still no meningismus so do not feel lp indicated at present time. Discussed with patient and she is comfortable with d/c and f/u with her pcp and return precautions given Differential Diagnosis Differential Diagnosis: hemorrhage, migraine, aneurysm Medical Records Medical records reviewed: Yes I reviewed the patient's medical records. Imaging Data Radiologic Study: Attestation: I personally reviewed and interpreted this imaging study as follows: Imaging: CT Scan Radiologist's impression: IMPRESSION: 1. No large vessel stenosis or occlusion. 2. No vascular malformation or aneurysm evident. 3. Venous sinuses opacify normally. 4. No intracranial hemorrhage. No mass. 5. No hydrocephaly. Lab Data Lab results reviewed: Yes I reviewed the patient's lab results. HPI General Mode of arrival: ambulatory. Date/Time Provider Initiated Documentation: 01/10/21 19:42. Limitations to Documentation: no limitations. Information obtained by: patient. History of Present Illness 40 year old F presents to the emergency department with the chief complaint of headache, described as moderate, with intensity rated at 8. and it has been constant. No relieving factors improve symptom(s), No exacerbating factors reported . Patient notes nausea/vomiting. Patient did receive the following treatments prior to arrival, none Related Data Home Medications Medication Instructions Recorded Confirmed ibuprofen 200 mg capsule 200 mg PO Q6H PRN 04/26/19 01/10/21 sertraline 50 mg tablet 50 mg PO DAILY 06/05/20 01/10/21 azathioprine 50 mg tablet 250 mg PO DAILY #150 tab 08/28/20 01/10/21 prochlorperazine maleate 10 mg 10 mg PO TID PRN 08/28/20 01/10/21 tablet pyridostigmine bromide 60 mg tablet See Rx Instructions PO TID #90 tab 08/28/20 01/10/21 acetaminophen [Tylenol] 650 mg PO Q4H PRN PRN #0 tab 09/03/20 01/10/21 buprenorphine 12 mg-naloxone 3 mg 1 film SUBLINGUAL DAILY 11/07/20 01/10/21 sublingual film methylphenidate HCl 20 mg tablet 20 mg PO TID #90 tab MDD 60mg 01/01/21 01/10/21 prednisone 20 mg tablet See Rx Instructions PO .COMPLEX 01/01/21 01/10/21 #12 tab fvmrotjgpe-upzvbeljpymxp-acoq 1 cap PO TID PRN #30 cap 01/10/21 [Fioricet] Previous Rx's Medication Instructions Recorded azathioprine 50 mg tablet 250 mg PO DAILY #150 tab 08/28/20 pyridostigmine bromide 60 mg tablet See Rx Instructions PO TID #90 tab 08/28/20 acetaminophen [Tylenol] 650 mg PO Q4H PRN PRN #0 tab 09/03/20 methylphenidate HCl 20 mg tablet 20 mg PO TID #90 tab MDD 60mg 01/01/21 prednisone 20 mg tablet See Rx Instructions PO .COMPLEX 01/01/21 #12 tab ymovjwocam-iimeevazojuir-esns 1 cap PO TID PRN #30 cap 01/10/21 [Fioricet] Allergies Allergy/AdvReac Type Severity Reaction Status Date / Time adhesive tape Allergy Severe pealed her Verified 01/10/21 19:52 skin off when removing the tape. General Stated Complaint: Headache CHRIS: 2 Review of Systems All systems reviewed & are unremarkable except as noted in HPI and below Constitutional Constitutional: Denies chills, Denies fever(s) and Denies weakness Cardiovascular Cardiovascular: Denies chest pain and Denies dyspnea Respiratory Respiratory: Denies cough and Denies dyspnea Gastrointestinal Gastrointestinal: Denies abdominal pain Genitourinary Genitourinary: Denies dysuria Musculoskeletal Musculoskeletal: Denies joint swelling Integumentary/Breasts Skin/Breast: Denies rash Neurologic Neurologic: Denies weakness [facility] Medical History Abnormal uterine bleeding (AUB) (05/16/15) Carpal tunnel syndrome on left 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 Hypersomnia Incompetent cervix Irregular menses (01/12/14) Myasthenia gravis Polysubstance (including opioids) dependence with physiol dependence On Suboxone, pt states she has been tapering off this medication Thymoma Surgical History History of thymectomy Hx of breast implants, bilateral S/P dilatation and curettage S/P tubal ligation Social History Smoking/Tobacco Use Status: Current every day Tobacco Type: e-cigarettes and smokeless tobacco Tobacco: How many years used: 20 Quit status: not considering quitting Smoking risk assessment performed?: Yes Alcohol Intake: never Drug use: Occasionally Substance use type: former substance user and marijuana Details: Occ. Pot Number of Children: 2 current occupation: Unemployed Current gender identity: female Do you feel safe at home: Yes Do you feel safe in your relationship?: Yes Female Reproductive History Menstrual control method: permanent sterilization History History 4 Para 2 Hx # Term Pregnancies Multiple births Hx # Pregnancies Ectopic pregnancies AB induced Hx Number of Living Children AB spontaneous Exam Const General: other (in pain) Orientation: alert HENMT Head: normal to inspection Ears: external ears normal General nose exam: external nose normal Mouth: moist mucous membranes Eyes General: appearance normal, both eyes and all related structures Neck Neck: normal visual inspection Resp Effort & Inspection: normal respiratory effort and able to speak in complete sentences Cardio Rate: regular rate Skin General skin exam: no rashes or lesions noted Neuro General: patient alert and patient oriented x3 Extrem General: normal to inspection Psych Mental Status: mental status grossly normal Course Vital Signs Vital signs: Vital Signs Temperature 36.2 C L 01/10/21 19:47 Pulse 84 01/10/21 19:47 Respiratory Rate 18 01/10/21 19:47 Blood Pressure 111/71 01/10/21 19:47 Pulse Oximetry 100 01/10/21 19:47 Temperature 36.2 C L 01/10/21 19:47 Temperature Source Temporal Artery Scan 01/10/21 19:47 Pulse 84 01/10/21 19:47 Respiratory Rate 18 01/10/21 19:47 Respiratory Effort Non-Labored 01/10/21 19:54 Blood Pressure 111/71 01/10/21 19:47 Blood Pressure Position Sitting 01/10/21 19:47 Pulse Oximetry 100 01/10/21 19:47 Oxygen Delivery Method Room Air 01/10/21 19:47 Oxygen Flow Rate 0 01/10/21 19:47 Pain Level 10 01/10/21 19:54
[2021-01-10] MEDS: Normal Saline 1,000 ML 1000 ML IV (20:22)
[2021-01-10] MEDS: Ketorolac 15 MG/ML VIAL IVP (20:23)
[2021-01-10 20:25] LABS: Abs Immature Grans 0.03 10^3/uL (0.0-0.06); Absolute Basophil Count 0.05 10^3/uL (0.0-0.2); Absolute Eosinophil Count 0.06 10^3/uL (0.0-0.7); Absolute Lymphocyte Count 2.74 10^3/uL (1.2-3.4); Absolute Monocyte Count 0.63 10^3/uL (0.1-0.8); Absolute Neutrophil Count 4.85 10^3/uL (1.2-6.7); Basophils % 0.6; Eosinophils % 0.7; HCT 37.5 % (36.0-46.0); Immature Grans % 0.4; Lymphocytes % 32.8; MCV 96.9 fL (80-95); MPV 11.2 fL (8.0-11.0); Monocytes % 7.5; Nucleated RBC 0 %; Platelet Count 195 10^3/uL (130-400); RBC 3.87 10^6/uL (3.93-5.22); RDW 12.5 % (11.7-14.6); RDW-SD 44.5 fL; WBC 8.36 10^3/uL (4.4-10.8)
[2021-01-10 20:26] LABS: BE (Venous) 5 mmol/L (-2-3); HCO3 (Venous) 30 mmol/L (23-28); O2 Sat (Venous) 79 %; TCO2 (Venous) 27 mmol/L (24-29); pCO2 (Venous) 50 mmHg (41-51); pH (Venous) 7.39 (7.31-7.41); pO2 (Venous) 42 mmHg
[2021-01-10] MEDS: Metoclopramide 10 MG/2 ML VIAL 20 MG IVP (20:26)
[2021-01-10] MEDS: HYDROmorphone 2 MG/ML VIAL 1 MG IVP (20:26)
[2021-01-10 20:27] LABS: Bilirubin Negative (Negative); Blood Negative (Negative); Clarity Sl Cloudy (Clear); Glucose Negative (Negative); Ketones Negative (Negative); Leukocyte Esterase Trace (Negative); Nitrite Negative (Negative); Specific Gravity >= 1.030 (1.005-1.025); Urobilinogen 0.2 EU/dL (Up TO 0.2); pH 5.5 (5-8)
--- NOTE | 2021-01-10 20:29 | NUR.NOTE ---
To CT scan per cart with transporterNursing Note:
[2021-01-10 20:37] LABS: Bacteria Moderate HPF (Negative); C & S Indicated? Yes; Crystals Negative HPF (Negative); Epithelial Cells Moderate HPF (Negative); Mucus Negative (Negative); RBC 0-2 HPF (0-2)
[2021-01-10] MEDS: Omnipaque 350 MG/ML 100 ML BTL 90 ML IJ (20:49)
[2021-01-10] MEDS: Normal Saline - Diluent 50 ML VIAL IV (20:50)
[2021-01-10] MEDS: Normal Saline Flush 10 ML SYR IVP (20:51)
[2021-01-10 20:57] LABS: ALT 15 U/L (14-59); AST 14 U/L (15-37); Albumin 3.3 g/dL (3.4-5.0); Alkaline Phosphatase 49 U/L (46-116); Anion Gap 4.1 mmol/L (3-11); BUN 11 mg/dL (7-18); Bilirubin, Direct 0.1 mg/dL (0.0-0.2); Bilirubin, Total 0.3 mg/dL (0.2-1.0); CO2 29.9 mmol/L (21.0-32.0); CREATININE 0.8 mg/dL (0.55-1.02); Calcium 8.2 mg/dL (8.5-10.1); Chloride 104 mmol/L (98-107); Glucose 95 mg/dL (74-106); Lipase 63 U/L (73-393); Potassium 3.8 mmol/L (3.5-5.1); Sodium 138 mmol/L (136-145); TSH (W/Ref FT4) 1.26 uIU/mL (0.36-3.74); Total Protein 8.1 g/dL (6.4-8.2)
--- NOTE | 2021-01-10 21:18 | DI.VRAD_ITS ---
PROCEDURE INFORMATION: Exam: CT Angiography Head With Contrast, Arteriography Exam date and time: 01/10/2021 8:08 PM Age: 40 years old Clinical indication: Headache TECHNIQUE: Imaging protocol: Computed tomography angiography of the head with contrast. Exam focused on the arteries. 3D rendering (Not supervised by radiologist): MIP and/or 3D reconstructed images were created by the technologist. Radiation optimization: All CT scans at this facility use at least one of these dose optimization techniques: automated exposure control; mA and/or kV adjustment per patient size (includes targeted exams where dose is matched to clinical indication); or iterative reconstruction. Contrast material: OMNIPAQUE 350; Contrast volume: 100 ml; Contrast route: INTRAVENOUS (IV); COMPARISON: CT HEAD WITHOUT CONTRAST 12/09/2016 12:36 PM FINDINGS: ANTERIOR CIRCULATION: Right internal carotid artery: Unremarkable. Intracranial segment is patent with no significant stenosis. No aneurysm. Right middle cerebral artery: Unremarkable. No occlusion or significant stenosis. No aneurysm. Right anterior cerebral artery: Unremarkable. No occlusion or significant stenosis. No aneurysm. Left internal carotid artery: Unremarkable. Intracranial segment is patent with no significant stenosis. No aneurysm. Left middle cerebral artery: Unremarkable. No occlusion or significant stenosis. No aneurysm. Left anterior cerebral artery: Unremarkable. No occlusion or significant stenosis. No aneurysm. POSTERIOR CIRCULATION: Right vertebral artery: Unremarkable. No occlusion or significant stenosis. No aneurysm. Left vertebral artery: Unremarkable. No occlusion or significant stenosis. No aneurysm. Basilar artery: Unremarkable. No occlusion or significant stenosis. No aneurysm. Right posterior cerebral artery: Unremarkable. No occlusion or significant stenosis. No aneurysm. Left posterior cerebral artery: Unremarkable. No occlusion or significant stenosis. No aneurysm. Brain: No definite mass, mass effect, or midline shift. Cerebral ventricles: No ventriculomegaly. Bones/joints: Unremarkable. No acute fracture. Soft tissues: Unremarkable. IMPRESSION: 1. No large vessel stenosis or occlusion. 2. No vascular malformation or aneurysm evident. 3. Venous sinuses opacify normally. 4. No intracranial hemorrhage. No mass. 5. No hydrocephaly. Dictated and Authenticated by: David Mills MD. Ordering:DOM Smith MD
[2021-01-10 21:24] LABS: ETHANOL BLOOD < 3.0 mg/dL (<10)
--- NOTE | 2021-01-10 21:32 | NUR.NOTE ---
Patient resting with eyes closed; appears sleeping. Awakens on rounds. Reports pain in head better, now rated 7/10. Plan for dismissal to home.Nursing Note:
[2021-01-10] MEDS: Butalbital/Acetaminophen/Caffeine 50/325/40 TAB PO (21:45)
== END 2021-01-10 21:55 | disposition home or self-care (01) ==
PROVIDERS: Emergency Provider Emergency Medicine; PCP Physician Assistant
DX: R51.9 Headache, unspecified (principal); G70.00 Myasthenia gravis without (acute) exacerbation
CPT/HCPCS: 36415; 70496; 80053; 81025; 82805; 83690; 96361; 96374; 96375; 99285; 80320; 81003; 81015; 82248; 83735; 84443; 85025; 87086; 99284; J1885; J2765; J3490

== ENCOUNTER 2021-01-15 12:17 | Emergency (ER) | payer MEDICAID, SELFPAY ==
[2021-01-15] VITALS (7 sets, daily range): BP systolic 111–121; BP diastolic 64–67; PULSE 60–70; RESP 12–18; TEMP 37.2; O2SAT 93–98
--- NOTE | 2021-01-15 12:15 | RT.EKG_ITS ---
APPROVED REPORT Exam: Resting ECG Reason for Exam: sob Patient Location: E HR:60 bpm ECG Measurements Heart Rate 60 AXIS SC 133 P 37 QRSd 81 QRS 38 QT 423 T 51 QTc 424 Conclusion Sinus rhythm...normal P axis, V-rate 60- 99. Sinus. No STEMI. I have reviewed and interpreted ECG and agree with software generated interpretation.
--- NOTE | 2021-01-15 12:20 | ED.GENADUL_ITS ---
Discharge Plan Disposition Patient Disposition: HOME Condition: Stable Discharge Details Clinical Impression: Myasthenia gravis with exacerbation Primary Care Provider: Barrera Dsouza ED Provider: Sandi Humphrey Home Meds and New Rx's Prescriptions: New prednisone 20 mg tablet 60 mg PO DAILY Qty: 30 RF: 0 Continued sertraline 50 mg tablet 50 mg PO DAILY RF: 0 prochlorperazine maleate [Compazine] 10 mg tablet 10 mg PO TID PRNRF: 0 azathioprine 50 mg tablet 250 mg PO DAILY Qty: 150 RF: 11 pyridostigmine bromide [Mestinon] 60 mg tablet See Rx Instructions PO TID Qty: 90 RF: 5 methylphenidate HCl 20 mg tablet 20 mg PO TID MDD 60mg Qty: 90 RF: 0 prednisone 20 mg tablet See Rx Instructions PO .COMPLEX Qty: 12 RF: 0 ibuprofen 200 mg capsule 200 mg PO Q6H PRNRF: 0 acetaminophen [Tylenol] 325 mg Tablet 650 mg PO Q4H PRN PRNQty: 0 RF: 0 buprenorphine-naloxone [Suboxone] 12-3 mg film 1 film sublingual DAILY RF: 0 wkffvfhjfr-rxqtflgbzqocz-xzih [Fioricet] 50-300-40 mg capsule 1 cap PO TID PRN (Reason: pain) Qty: 30 RF: 0 buprenorphine-naloxone [Suboxone] 2-0.5 mg film 2 film sublingual DAILY RF: 0 Discharge Instructions Instructions: Myasthenia Gravis (ED) Additional Instructions: Your lab work, EKG and CT scan were reassuring today and did not note any evidence of acute significant findings. It is suspected that your fatigue and shortness of breath with exertion are due to your myasthenia gravis. Stop taking your prednisone taper that you have at home. A prescription for a new higher dose of prednisone has been sent electronically to your pharmacy. Start this tomorrow and take this as directed until directed otherwise by Dr. Biswas. Dr. Biswas will follow up with you for reevaluation. Return to the emergency department with any worsening or new concerning symptoms such as difficulty swallowing, difficulty breathing or any other concerns. Referrals: Riya Biswas MD [ [facility] STAFF PHYSICIAN] - Discharge Data Discharge Physician: Sandi Humphrey Medical Decision Making 40-year-old female with a history of myasthenia gravis currently on a prednisone taper 1 week status post IVIG treatment for 3 days presents for fatigue and shortness of breath with exertion. Vitals within normal limits. EKG notes a rate of 60, sinus, no STEMI and nondiagnostic. Patient appears comfortable and nontoxic. Her oxygen saturation is 95 to 98% on room air. Her lungs are clear. Airway intact. She appears to be swallowing normally without signs of respiratory distress. From a respiratory standpoint, she appears to be doing well at rest. Suspect her symptom presentation is in the setting of a myasthenia crisis but I do not feel that she is in acute crisis from a respiratory standpoint. We will obtain screening labs and CT chest to rule any other acute potential diagnoses. Case discussed with Dr. Biswas will come to evaluate patient. Recommend increasing her prednisone for a longer period of time, with a dose of 60mg now. Labs and imaging reviewed and unremarkable. Normal white blood cell count. Negative troponin. Urinalysis negative. CT chest negative. Patient was evaluated by Dr. Biswas at bedside who agrees with plan for increasing prednisone and discharge to home. Patient feels comfortable with plan for home. A prescription for prednisone has been sent electronically to her pharmacy. Usual and customary return precautions given prior to discharge. Medical Records Medical records reviewed: Yes I reviewed the patient's medical records. Imaging Data Radiologic Study: Radiologist's impression: CT CHEST PE CTA CLINICAL HISTORY: sob w/ exertion, difficulty taking full breath. TECHNIQUE: Imaging Protocol: CT angiography of the chest was performed using pulmonary embolus protocol. Multi planar reconstructions were performed. CONTRAST MATERIAL: Intravenous: Omnipaque 350 Contrast volume: 100 cc COMPARISON: CT CT BRAIN CTA from 01/10/2021 FINDINGS: CHEST: PULMONARY ARTERIES: There are no intraluminal filling defects to suggest acute pulmonary emboli. LUNGS: There are no infiltrates nor evidence of pulmonary infarction.. There are no pleural effusions. MEDIASTINUM: There is no hilar nor mediastinal adenopathy. Visualized thyroid unremarkable. CARDIAC: Heart size is upper normal. There is no pericardial effusion.Caliber of the thoracic aorta is within normal limits. There is no significant shift of the interventricular septum. PARTIALLY VISUALIZED UPPERMOST ABDOMEN: No obvious findings. Bilateral breast implants noted. OSSEOUS: No significant osseous lesions.. IMPRESSION: 1. No evidence of acute pulmonary emboli. No evidence of pulmonary infarction. No infiltrates. No pleural effusions. 2. No intrathoracic adenopathy. Lab Data Lab results reviewed: Yes I reviewed the patient's lab results. Labs: Laboratory Tests Range/Units 01/15/21 01/15/21 01/15/21 12:33 12:33 12:33 WBC (4.4-10.8) 10^3/uL 10.37 RBC (3.93-5.22) 10^6/uL 3.89 L Hgb (11.2-15.7) g/dL 12.1 Hct (36.0-46.0) % 36.9 MCV (80-95) fL 94.9 MCH (27.0-33.0) pg 31.1 MCHC (32.0-36.0) % 32.8 RDW (11.7-14.6) % 12.4 Plt Count (130-400) 10^3/uL 196 MPV (8.0-11.0) fL 11.6 H Immature Gran % 0.4 Neutrophils % 90.7 Lymphocytes % 7.4 Monocytes % 1.2 Eosinophils % 0.0 Basophils % 0.3 Nucleated RBC % % 0 Absolute Neutrophils (1.2-6.7) 10^3/uL 9.41 H Absolute Lymphocytes (1.2-3.4) 10^3/uL 0.77 L Absolute Monocytes (0.1-0.8) 10^3/uL 0.12 Absolute Eosinophils (0.0-0.7) 10^3/uL 0.00 Absolute Basophils (0.0-0.2) 10^3/uL 0.03 Sodium (136-145) mmol/L 139 Potassium (3.5-5.1) mmol/L 3.7 Chloride (98-107) mmol/L 103 Carbon Dioxide (21.0-32.0) mmol/L 27.3 Anion Gap (3-11) mmol/L 8.7 BUN (7-18) mg/dL 14 Creatinine (0.55-1.02) mg/dL 0.8 Estimated GFR/1.73 m2 (mL/min/1.73m2) >= 60.00 Glucose (74-106) mg/dL 122 H Calcium (8.5-10.1) mg/dL 8.7 Magnesium (1.8-2.4) mg/dL 1.9 Total Bilirubin (0.2-1.0) mg/dL 0.2 AST (15-37) U/L 18 ALT (14-59) U/L 18 Alkaline Phosphatase (46-116) U/L 55 Troponin I (<0.06) ng/mL < 0.05 Total Protein (6.4-8.2) g/dL 8.8 H Albumin (3.4-5.0) g/dL 3.8 Lipase (73-393) U/L 47 ECG Data Attestation: I personally reviewed and interpreted this ECG (s) as follows: Interpretation: rate of 60, sinus, no acute ST elevation or depression. OK 133. QRS 81. QTc 424. HPI General Mode of arrival: ambulatory . Date/Time Provider Initiated Documentation: 01/15/21 12:17 . Limitations to Documentation: no limitations . Information obtained by: patient . HPI Narrative: Patient is a 40-year-old female with history of myasthenia gravis currently on a steroid taper presents for shortness of breath and fatigue that occurs with exertion since yesterday. Patient states she has had about 2 weeks of ptosis of her left eye which has not significantly resolved with 3 days of IVIG treatment last week. She states 1 day status post finishing her IVIG treatment she came to the ED for severe headache which resolved 2 days later. She denies any headache at present. She states she was at work today when she was doing exertional activity and felt she became short of breath which she describes as more of a fatigue and difficulty getting a deep breath due to feeling tired. She denies any fever, cough, chest pain, abdominal pain, nausea, vomiting, diarrhea. She denies any difficulty swallowing. Dr. Biswas called the ED informing us of patient's arrival for evaluation. Related Data Home Medications Medication Instructions Recorded Confirmed ibuprofen 200 mg capsule 200 mg PO Q6H PRN 04/26/19 01/15/21 sertraline 50 mg tablet 50 mg PO DAILY 06/05/20 01/15/21 azathioprine 50 mg tablet 250 mg PO DAILY #150 tab 08/28/20 01/15/21 prochlorperazine maleate 10 mg 10 mg PO TID PRN 08/28/20 01/15/21 tablet pyridostigmine bromide 60 mg tablet See Rx Instructions PO TID #90 tab 08/28/20 01/15/21 acetaminophen [Tylenol] 650 mg PO Q4H PRN PRN #0 tab 09/03/20 01/15/21 buprenorphine 12 mg-naloxone 3 mg 1 film SUBLINGUAL DAILY 11/07/20 01/15/21 sublingual film methylphenidate HCl 20 mg tablet 20 mg PO TID #90 tab MDD 60mg 01/01/21 01/15/21 prednisone 20 mg tablet See Rx Instructions PO .COMPLEX 01/01/21 01/15/21 #12 tab jtrkewzupb-xygrcvbuiecru-pwfc 1 cap PO TID PRN #30 cap 01/10/21 01/15/21 [Fioricet] buprenorphine-naloxone [Suboxone] 2 film SUBLINGUAL DAILY 01/15/21 01/15/21 prednisone 60 mg PO DAILY #30 tab 01/15/21 Previous Rx's Medication Instructions Recorded azathioprine 50 mg tablet 250 mg PO DAILY #150 tab 08/28/20 pyridostigmine bromide 60 mg tablet See Rx Instructions PO TID #90 tab 08/28/20 acetaminophen [Tylenol] 650 mg PO Q4H PRN PRN #0 tab 09/03/20 methylphenidate HCl 20 mg tablet 20 mg PO TID #90 tab MDD 60mg 01/01/21 prednisone 20 mg tablet See Rx Instructions PO .COMPLEX 01/01/21 #12 tab xkkxoubaei-qvalzhdtsoahh-pgxm 1 cap PO TID PRN #30 cap 01/10/21 [Fioricet] prednisone 60 mg PO DAILY #30 tab 01/15/21 Allergies Allergy/AdvReac Type Severity Reaction Status Date / Time adhesive tape Allergy Severe pealed her Verified 01/10/21 19:52 skin off when removing the tape. General CHRIS: 2 Review of Systems All systems reviewed & are unremarkable except as noted in HPI and below Constitutional Constitutional: Reports as per HPI, Denies chills and Denies fever(s) Eyes Eyes: Denies blurry vision ENT Ears, Nose, Mouth, and Throat: Denies dizziness, Denies sore throat and Denies throat swelling Cardiovascular Cardiovascular: Denies chest pain and Reports dyspnea Respiratory Respiratory: Denies cough and Reports dyspnea Gastrointestinal Gastrointestinal: Denies abdominal pain, Denies diarrhea and Denies vomiting Genitourinary Genitourinary: Denies hematuria and Denies dysuria Musculoskeletal Musculoskeletal: Denies back pain and Denies numbness Integumentary/Breasts Skin/Breast: Denies lesions and Denies rash Neurologic Neurologic: Denies dizziness, Denies localized weakness and Denies numbness Allergic/Immunologic Allergic/Immunologic: Denies throat swelling [facility] Medical History Abnormal uterine bleeding (AUB) (05/16/15) Carpal tunnel syndrome on left 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 Hypersomnia Incompetent cervix Irregular menses (01/12/14) Myasthenia gravis Polysubstance (including opioids) dependence with physiol dependence On Suboxone, pt states she has been tapering off this medication Thymoma Surgical History History of thymectomy Hx of breast implants, bilateral S/P dilatation and curettage S/P tubal ligation Social History Smoking/Tobacco Use Status: Current every day Tobacco Type: e-cigarettes and smokeless tobacco Tobacco: How many years used: 20 Quit status: not considering quitting Smoking risk assessment performed?: Yes Alcohol Intake: never Drug use: Occasionally Substance use type: former substance user and marijuana Details: Occ. Pot Number of Children: 2 current occupation: Unemployed Current gender identity: female Do you feel safe at home: Yes Do you feel safe in your relationship?: Yes Female Reproductive History Menstrual control method: permanent sterilization History History 4 Para 2 Hx # Term Pregnancies Multiple births Hx # Pregnancies Ectopic pregnancies AB induced Hx Number of Living Children AB spontaneous Exam Const General: cooperative, healthy appearing and no acute distress [facility] Head: normal to inspection Ears: hearing grossly normal bilaterally and external ears normal Face and sinus: normal facial exam Mouth: oral mucosae normal Throat: posterior oropharynx normal Eyes General: appearance normal, both eyes and all related structures Pupils: PERRL EOM: EOM intact bilaterally Neck Neck: normal visual inspection and No submandibular swelling Lymphatic: no lymphadenopathy noted Chest Chest: normal inspection of the chest and no tenderness Resp Effort & Inspection: normal respiratory effort and able to speak in complete sentences Auscultation: clear to auscultation bilaterally Cardio Rate: regular rate Rhythm: regular rhythm GI Inspection: normal to inspection Palpation: soft, not firm, not rigid and nontender Auscultation: normal bowel sounds Skin General skin exam: no rashes or lesions noted Neuro General: patient alert, patient awake, patient oriented x3, moves all extremities and no meningeal signs Cranial Nerves: other (Left upper eyelid drooping, no other focal deficits.) Cognition: normal cognition Speech: speech normal Motor: muscle tone normal throughout and strength 5/5 throughout Sensory Exam: no sensory deficits noted Extrem General: normal to inspection, full ROM, capillary refill normal, no calf tenderness bilaterally and no edema Psych Appearance: grossly normal Mental Status: mental status grossly normal Speech and Movement: speech and movement normal Affect: normal affect
[2021-01-15 12:43] LABS: Abs Immature Grans 0.04 10^3/uL (0.0-0.06); Absolute Basophil Count 0.03 10^3/uL (0.0-0.2); Absolute Lymphocyte Count 0.77 10^3/uL (1.2-3.4); Absolute Monocyte Count 0.12 10^3/uL (0.1-0.8); Absolute Neutrophil Count 9.41 10^3/uL (1.2-6.7); Basophils % 0.3; HCT 36.9 % (36.0-46.0); HGB 12.1 g/dL (11.2-15.7); Immature Grans % 0.4; Lymphocytes % 7.4; MCH 31.1 pg (27.0-33.0); MCHC 32.8 % (32.0-36.0); MCV 94.9 fL (80-95); MPV 11.6 fL (8.0-11.0); Monocytes % 1.2; Neutrophils % 90.7; Nucleated RBC 0 %; Platelet Count 196 10^3/uL (130-400); RBC 3.89 10^6/uL (3.93-5.22); RDW 12.4 % (11.7-14.6); RDW-SD 43.8 fL; WBC 10.37 10^3/uL (4.4-10.8)
--- NOTE | 2021-01-15 12:45 | DI.CT_ITS ---
Exam(s) CT CHEST PE CTA EXAM: CT CHEST PE CTA CLINICAL HISTORY: sob w/ exertion, difficulty taking full breath. TECHNIQUE: Imaging Protocol: CT angiography of the chest was performed using pulmonary embolus donna col. Multi planar reconstructions were performed. CONTRAST MATERIAL: Intravenous: Omnipaque 350 Contrast volume: 100 cc COMPARISON: CT CT BRAIN CTA from 01/10/2021 FINDINGS: CHEST: PULMONARY ARTERIES: There are no intraluminal filling defects to suggest acute pulmonary emboli. LUNGS: There are no infiltrates nor evidence of pulmonary infarction.. There are no pleural effusions . MEDIASTINUM: There is no hilar nor mediastinal adenopathy. Visualized thyroid unremarkable. CARDIAC: Heart size is upper normal. There is no pericardial effusion.Caliber of the thoracic aorta is within normal limits. There is no significant shift of the interventricular septum. PARTIALLY VISUALIZED UPPERMOST ABDOMEN: No obvious findings. Bilateral breast implants noted. OSSEOUS: No significant osseous lesions.. IMPRESSION: 1. No evidence of acute pulmonary emboli. No evidence of pulmonary infarction. No infiltrates. No pleural effusions. 2. No intrathoracic adenopathy. RADIATION DOSE DELIVERED: 345.54mGy.cm Total DLP DATA REPOSITORY: All CT scans at this facility are submitted to the National Radiology Data Registry (NRDR) Dose Index Registry (DIR) with the [employer] (ACR). RADIATION OPTIMIZATION: All CT scans at this facility use at least one of these dose optimization te chniques: automated exposure control; mA and/or kV adjustment per patient size (includes targeted exa ms where dose is matched to clinical indication); or iterative reconstruction.
[2021-01-15 12:55] LABS: Lipase 47 U/L (73-393)
[2021-01-15 12:59] LABS: ALT 18 U/L (14-59); AST 18 U/L (15-37); Albumin 3.8 g/dL (3.4-5.0); Alkaline Phosphatase 55 U/L (46-116); Anion Gap 8.7 mmol/L (3-11); BUN 14 mg/dL (7-18); Bilirubin, Total 0.2 mg/dL (0.2-1.0); CO2 27.3 mmol/L (21.0-32.0); CREATININE 0.8 mg/dL (0.55-1.02); Calcium 8.7 mg/dL (8.5-10.1); Chloride 103 mmol/L (98-107); Glucose 122 mg/dL (74-106); Magnesium 1.9 mg/dL (1.8-2.4); Potassium 3.7 mmol/L (3.5-5.1); Sodium 139 mmol/L (136-145); Total Protein 8.8 g/dL (6.4-8.2); Troponin I < 0.05 ng/mL (<0.06)
--- NOTE | 2021-01-15 13:11 | RESPIRATORY ---
Addendum entered by Cee Arauz 01/15/21 13:31: Pt re-did and was able to get -50 Original Note: RT called for NIF(MIP) pt got -40.
[2021-01-15] MEDS: Omnipaque 350 MG/ML 100 ML BTL 64 ML IJ (13:26)
[2021-01-15] MEDS: Normal Saline Flush 10 ML SYR IVP (13:28)
[2021-01-15] MEDS: Normal Saline - Diluent 50 ML VIAL IV (13:28)
--- NOTE | 2021-01-15 13:59 | NCONE_ITS ---
Date of service: 01/15/21 Time of Service: 13:59 Assessment and Plan Assessment and plan (1) Myasthenic crisis: Status: Acute Assessment and plan: Mild myasthenic crises. Slightly disconcerting given that she just received IVIG, but no orthopnea, neck weakness, or dysphagia and NIFs stable. Thus, will initiate prednisone 60mg daily and keep her at that dose for at least 2 weeks with plan for slow taper following. Continue azathioprine and Mestinon 30mg TID. Will plan for quick outpatient follow-up. May need to switch azathioprine over to another agent given 2nd breakthrough in last few months. History of Present Illness History of Present Illness Chief Complaint: shortness of breath Narrative: Handedness: right. HPI: Ms. Brewer has myasthenia gravis and is well known to me. She has had break through MG symptoms since the beginning of the month - mainly ptosis but also jaw fatigue. Seen by me earlier this month and started on prednisone with rapid taper until she could get treated with IVIG 0.4gm/kg/day x 3 days on 01/07/21-01/09/21. Developed a mild BELL afer 2nd infusion and then severe headache after 3rd infusion which resolved after about 3 days. She has not noted any improvement in ptosis or jaw fatigue. She called the clinic today n oting onset of SOB with exertion that began yesterday. Upon clarification in the ER, she describes more of a generalized fatigue, more pronounced with exertion. Has not been taking Mestinon, but re-started this am. Feeling better?? O2 sats low end of normal. No orthopnea. No dysphagia. NIF performed by RT and stable compared to August. 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 current use of azathioprine Hypersomnia Incompetent cervix Irregular menses (01/12/14) Myasthenia gravis Polysubstance (including opioids) dependence with physiol dependence On Suboxone, pt states she has been tapering off this medication Thymoma Surgical History History of thymectomy Hx of breast implants, bilateral S/P dilatation and curettage S/P tubal ligation Social History Smoking/Tobacco Use Status: Current every day Tobacco Type: e-cigarettes and smokeless tobacco Tobacco: How many years used: 20 Quit status: not considering quitting Smoking risk assessment performed?: Yes Alcohol Intake: never Drug use: Occasionally Substance use type: former substance user and marijuana Details: Occ. Pot Number of Children: 2 current occupation: Unemployed Current gender identity: female Do you feel safe at home: Yes Do you feel safe in your relationship?: Yes Female Reproductive History Menstrual control method: permanent sterilization History History 4 Para 2 Hx # Term Pregnancies Multiple births Hx # Pregnancies Ectopic pregnancies AB induced Hx Number of Living Children AB spontaneous Visit Medication and Allergies Active Medications Generic Name Dose Route Start Last Admin Trade Name Freq PRN Reason Stop Dose Admin Sodium Chloride 1,000 mls @ 1,000 mls/hr 01/15/21 13:08 Saline 1000ml Bag IV 01/15/21 14:07 BOLUS ONE IV Miscellaneous Supplies 1 each 01/15/21 12:30 Iv Access IV DIRECTED ISRA Iohexol 64 ml 01/15/21 13:30 01/15/21 13:26 Omnipaque 350 Mg/Ml 100 Ml Btl IJ 02/14/21 23:59 64 ml DIRECTED ISRA Administration Sodium Chloride 0 ml 01/15/21 12:30 01/15/21 13:28 Normal Saline Flush 10 Ml Syr IVP 10 ml PRN PRN Administration Sodium Chloride 50 ml 01/15/21 13:30 01/15/21 13:28 Normal Saline - Diluent 50 Ml Vial IV 50 ml .FOR DI USE ISRA Administration Allergies adhesive tape Allergy (Severe, Verified 01/10/21 19:52) pealed her skin off when removing the tape. Exam Narrative Exam Narrative: Physical Exam: Gen: Patient of apparent stated age, NAD Head and face: no facial or cranial abnormalities; left eye ptosis Neck: Supple, no meningismus, no occipital tenderness CV: + S1, S2, RRR, no murmur Resp: CTA B/L Abd: soft, nontender, nondistended Ext: No edema. No clubbing or cyanosis. No bony deformity. Neuro Exam: Language: fluency, naming, repetition, and comprehension intact; Mental Status: AAOx3, current events intact, fund of knowledge intact; Speech: no dysarthria Cranial nerves: Funduscopy: not performed CN II: visual fernandez intact CN III, IV, : extraocular movements intact, no nystagmus, pupils symmetric and reactive to light CN V: face sensation intact to LT and PP CN VII: left eye ptosis; +Cogen's lid twitch CN VIII: hearing intact bilaterally CN IX, X: palate rises symmetrically CN XI: trapezius/SCM 5/5 bilaterally CN XII: protrudes tongue symmetrically Motor: bulk and tone intact. Fine motor movements intact bilaterally. No pronator drift. Strength 5/5 throughout including the deltoids, biceps, triceps, wrist extensors, hip flexors, knee flexors, knee extensors, ankle flexors, and ankle extensors. Neck Ext/Flexion 5/5 each. Reflexes: 2+ at the biceps, triceps, brachioradialis, patella, and achilles tendons bilaterally; toes down going bilaterally; Coordination: FTN and HTS intact bilaterally Results Last Vital Signs Temp 99.0 F 01/15/21 12:23 Pulse 65 01/15/21 12:49 Resp 15 01/15/21 12:50 BP 111/67 01/15/21 12:49 Pulse Ox 93 01/15/21 12:50 Labs Result diagrams: 01/15/21 12:33 01/15/21 12:33 Labs: Laboratory Results - last 24 hr 01/15/21 01/15/21 01/15/21 12:33 12:33 12:33 WBC 10.37 RBC 3.89 L Hgb 12.1 Hct 36.9 MCV 94.9 MCH 31.1 MCHC 32.8 RDW 12.4 Plt Count 196 MPV 11.6 H Immature Gran % 0.4 Neutrophils % 90.7 Lymphocytes % 7.4 Monocytes % 1.2 Eosinophils % 0.0 Basophils % 0.3 Nucleated RBC % 0 Absolute Neutrophils 9.41 H Absolute Lymphocytes 0.77 L Absolute Monocytes 0.12 Absolute Eosinophils 0.00 Absolute Basophils 0.03 Sodium 139 Potassium 3.7 Chloride 103 Carbon Dioxide 27.3 Anion Gap 8.7 BUN 14 Creatinine 0.8 Estimated GFR/1.73 m2 >= 60.00 Glucose 122 H Calcium 8.7 Magnesium 1.9 Total Bilirubin 0.2 AST 18 ALT 18 Alkaline Phosphatase 55 Troponin I < 0.05 Total Protein 8.8 H Albumin 3.8 Lipase 47
[2021-01-15] MEDS: Normal Saline 1,000 ML 1000 ML IV (14:03)
[2021-01-15] MEDS: predniSONE 20 MG TAB 60 MG PO (14:03)
[2021-01-15 15:03] LABS: Bilirubin Negative (Negative); Blood Negative (Negative); Clarity Clear (Clear); Glucose Negative (Negative); Ketones Negative (Negative); Leukocyte Esterase Negative (Negative); Nitrite Negative (Negative); Specific Gravity 1.015 (1.005-1.025); Urobilinogen 0.2 EU/dL (Up TO 0.2)
== END 2021-01-15 14:59 | disposition home or self-care (01) ==
PROVIDERS: Emergency Provider Physician Assistant; PCP Physician Assistant
DX: R06.02 Shortness of breath; G70.01 Myasthenia gravis with (acute) exacerbation
CPT/HCPCS: 71275; 80053; 83690; 93005; 96360; 99285; 81003; 83735; 84484; 85025; 93010; 99284; J3490; J7512

== ENCOUNTER 2021-04-04 02:59 | Outpatient (RCR) | payer MEDICAID, SELFPAY ==
[2021-04-03] MEDS: Acetaminophen 325 MG TAB 650 MG PO (13:16)
[2021-04-03] MEDS: diphenhydrAMINE 25 MG CAP PO (13:16)
[2021-04-03 13:20] VITALS: BP 142/94; PULSE 99; RESP 16; TEMP 36.6; O2SAT 100
[2021-04-03] MEDS: Normal Saline Flush 10 ML SYR IVP (13:20)
[2021-04-03] MEDS: IMMUNE GLOBULIN 5 GM/50 ML BTL IV (13:20)
[2021-04-03 13:45] VITALS: BP 124/71; PULSE 92; RESP 16; TEMP 36.7; O2SAT 96
[2021-04-03 14:00] VITALS: BP 122/81; PULSE 84; RESP 16; TEMP 36.6; O2SAT 96
[2021-04-03] MEDS: IMMUNE GLOBULIN 10 GM/100 ML BTL IV (14:08)
[2021-04-03 14:30] VITALS: BP 137/80; PULSE 76; RESP 16; TEMP 36.7; O2SAT 97
[2021-04-03] MEDS: IMMUNE GLOBULIN 20 GM/200 ML BTL IV (14:40)
[2021-04-03 15:05] VITALS: BP 132/79; PULSE 77; RESP 17; TEMP 36.9; O2SAT 96
[2021-04-03 15:30] VITALS: BP 132/84; PULSE 79; RESP 16; TEMP 36.7; O2SAT 97
[2021-04-04] MEDS: IMMUNE GLOBULIN 5 GM/50 ML BTL IV (13:18)
[2021-04-04] MEDS: Normal Saline Flush 10 ML SYR IVP ×2 (13:18→13:21)
[2021-04-04] MEDS: Acetaminophen 325 MG TAB 650 MG PO (13:20)
[2021-04-04] MEDS: diphenhydrAMINE 25 MG CAP PO (13:20)
[2021-04-04 13:25] VITALS: BP 133/89; PULSE 96; RESP 17; TEMP 35.8; O2SAT 98
[2021-04-04 13:40] VITALS: BP 121/77; PULSE 72; RESP 17; TEMP 35.6; O2SAT 97
[2021-04-04 13:55] VITALS: BP 118/78; PULSE 81; RESP 17; TEMP 36.6; O2SAT 97
[2021-04-04] MEDS: IMMUNE GLOBULIN 10 GM/100 ML BTL IV (13:58)
[2021-04-04 14:26] VITALS: BP 116/81; PULSE 91; RESP 16; TEMP 36.6; O2SAT 100
[2021-04-04] MEDS: IMMUNE GLOBULIN 20 GM/200 ML BTL IV (14:36)
[2021-04-04 14:57] VITALS: BP 121/80; PULSE 78; RESP 16; TEMP 36.4; O2SAT 99
== END 2021-04-21 23:59 | disposition home or self-care (01) ==
LOC: INF 02:59
PROVIDERS: PCP Physician Assistant; Visit Provider Family Medicine
DX: G70.01 Myasthenia gravis with (acute) exacerbation (principal)
CPT/HCPCS: 96365; 96366; J1459

== ENCOUNTER 2021-04-07 08:45 | Emergency (ER) | payer OTHER, SELFPAY ==
[2021-04-07 08:57] VITALS: BP 131/89; PULSE 88; RESP 18; TEMP 36.6; O2SAT 98
--- NOTE | 2021-04-07 08:58 | ED.GENADUL_ITS ---
Discharge Plan Disposition Patient Disposition: HOME Condition: Stable Discharge Details Clinical Impression: Closed fibular fracture Primary Care Provider: Barrera Dsouza ED Provider: Silvestre Gore Home Meds and New Rx's Prescriptions: Continued prednisone 20 mg tablet 40 mg PO DAILY RF: 0 omeprazole 40 mg capsule,delayed release(DR/EC) 40 mg PO DAILY Qty: 90 RF: 3 buprenorphine-naloxone [Suboxone] 8-2 mg film 1 film sublingual BID RF: 0 pyridostigmine bromide [Mestinon] 60 mg tablet 30 mg PO QID RF: 0 prochlorperazine maleate [Compazine] 10 mg tablet 10 mg PO TID PRN (Reason: nausea and vomiting) Qty: 90 RF: 3 sertraline 50 mg tablet 50 mg PO DAILY RF: 0 azathioprine 50 mg tablet 250 mg PO DAILY Qty: 150 RF: 11 ibuprofen 200 mg capsule 200 mg PO Q6H PRNRF: 0 methylphenidate HCl 20 mg tablet 20 mg PO TID MDD 60mg Qty: 90 RF: 0 sulfamethoxazole-trimethoprim 800-160 mg tablet 1 tab PO .COMPLEX Qty: 45 RF: 3 acetaminophen [Tylenol] 325 mg Tablet 650 mg PO Q4H PRN PRNQty: 0 RF: 0 [id number]-wvtregnnukbyp-hkml [Fioricet] 50-300-40 mg capsule 1 cap PO TID PRN (Reason: pain) Qty: 30 RF: 0 buprenorphine-naloxone [Suboxone] 2-0.5 mg film 2 film sublingual DAILY RF: 0 Discharge Instructions Instructions: Ankle Fracture (ED) Additional Instructions: X-ray reveals a fibula fracture. Wear tall boot and crutches, no weightbearing until evaluation with orthopedics. Rest, elevate, cool compresses every 2 hours for 20 minutes. [id number] Tylenol and/or Motrin as for discomfort. I have placed you on the orthopedic list, please contact their office tomorrow to set up outpatient reevaluation. Please watch for new or worsening symptoms and return to the ER for any concerns. Referrals: Kristofer Robbins MD [ [facility] STAFF PHYSICIAN] - Medical Decision Making 41-year-old female with a twisting mechanism to her left ankle that occurred at work just prior to arrival. Did not fall to the ground, denies any other injury does not want any narcotic medication. Will provide 800 p.o. Motrin and obtain x-ray of her left ankle. X-ray reveals nondisplaced fracture of the lateral malleolus. Discussed x-ray findings with patient. Placed into a tall walking boot and crutches. Given her discomfort, will have her nonweightbearing until she follows up with orthopedics. She was placed on the orthopedic list. Patient has no additional questions or concerns and is comfortable discharge. Standard discharge and return precautions provided This documentation was generated using [employer] system, please disregard any oddities of phrase or misspellings. Medical Records Medical records reviewed: Yes I reviewed the patient's medical records. Imaging Data Radiologic Study: Attestation: I personally reviewed and interpreted this imaging study as follows: Imaging: X-Ray Radiologist's impression: Exam(s) XR ANKLE LT COMPLETE EXAM: XR ANKLE LT COMPLETE CLINICAL HISTORY: twist TECHNIQUE: 2D digital imaging was performed. COMPARISON: CR RIGHT ANKLE COMPLETE from 08/11/2016 FINDINGS: BONES: Extending transversely through the lateral malleolus. No additional fractures. No bony destructive lesion is seen. JOINTS:The ankle mortise is normally aligned. SOFT TISSUE: Swelling around lateral malleolus. IMPRESSION: Nondisplaced fracture lateral malleolus. HPI General Mode of arrival: ambulatory . Date/Time Provider Initiated Documentation: 04/07/21 08:58 . Limitations to Documentation: no limitations . Information obtained by: patient . History of Present Illness 41 year old F presents to the emergency department with the chief complaint of Ankle injury, described as severe, with intensity rated at 8. Quality is described as aching, and is localized to the left (Ankle). Patient reports no radiation. Patient started experiencing this minute(s) (30) and it has been constant. No relieving factors improve symptom(s), Movement worsens symptoms . Patient notes no other symptoms.. Patient did receive the following treatments prior to arrival, none Related Data Home Medications Medication Instructions Recorded Confirmed ibuprofen 200 mg capsule 200 mg PO Q6H PRN 04/26/19 04/07/21 sertraline 50 mg tablet 50 mg PO DAILY 06/05/20 04/07/21 azathioprine 50 mg tablet 250 mg PO DAILY #150 tab 08/28/20 04/07/21 acetaminophen [Tylenol] 650 mg PO Q4H PRN PRN #0 tab 09/03/20 04/07/21 kivduowgdx-htlpfqvlhdich-yywb 1 cap PO TID PRN #30 cap 01/10/21 04/07/21 [Fioricet] buprenorphine-naloxone [Suboxone] 2 film SUBLINGUAL DAILY 01/15/21 04/07/21 omeprazole 40 mg capsule,delayed 40 mg PO DAILY #90 cap 01/29/21 04/07/21 release prednisone 20 mg tablet 40 mg PO DAILY tab 01/29/21 04/07/21 buprenorphine 8 mg-naloxone 2 mg 1 film SUBLINGUAL BID ea 02/11/21 04/07/21 sublingual film prochlorperazine maleate 10 mg 10 mg PO TID PRN #90 tab 02/11/21 04/07/21 tablet pyridostigmine bromide 60 mg tablet 30 mg PO QID tab 02/11/21 04/07/21 methylphenidate HCl 20 mg tablet 20 mg PO TID #90 tab MDD 60mg 03/31/21 04/07/21 sulfamethoxazole 800 1 tab PO .COMPLEX #45 tab 03/31/21 04/07/21 mg-trimethoprim 160 mg tablet Previous Rx's Medication Instructions Recorded azathioprine 50 mg tablet 250 mg PO DAILY #150 tab 08/28/20 acetaminophen [Tylenol] 650 mg PO Q4H PRN PRN #0 tab 09/03/20 bzmyrplknh-ouhsqlvonziyx-uxjf 1 cap PO TID PRN #30 cap 01/10/21 [Fioricet] omeprazole 40 mg capsule,delayed 40 mg PO DAILY #90 cap 01/29/21 release prochlorperazine maleate 10 mg 10 mg PO TID PRN #90 tab 02/11/21 tablet methylphenidate HCl 20 mg tablet 20 mg PO TID #90 tab MDD 60mg 03/31/21 sulfamethoxazole 800 1 tab PO .COMPLEX #45 tab 03/31/21 mg-trimethoprim 160 mg tablet Allergies Allergy/AdvReac Type Severity Reaction Status Date / Time adhesive tape Allergy Severe pealed her Verified 04/07/21 09:36 skin off when removing the tape. General CHRIS: 3 Review of Systems Constitutional Constitutional: Denies weakness Musculoskeletal Musculoskeletal: Reports arthralgias, Denies numbness, Reports stiffness and Denies tingling Integumentary/Breasts Skin/Breast: Denies rash Neurologic Neurologic: Denies numbness, Denies tingling and Denies weakness PFSH All Active Problems (Updated 04/07/21 @ 09:47 by ASHOK Cantrell) Myasthenia gravis with exacerbation (Acute) Closed fibular fracture (Acute) Headache (Acute) Myasthenic crisis (Acute) Shortness of breath (Acute) Upper back pain (Acute) Carpal tunnel syndrome on left (Acute) Anemia (Chronic) Carpal tunnel syndrome on right (Acute) s/p right ECTR DOS: 02/19/20 Dr. 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 Pot Number of Children: 2 current occupation: Unemployed Current gender identity: female Do you feel safe at home: Yes Do you feel safe in your relationship?: Yes Female Reproductive History Menstrual control method: permanent sterilization History History 4 Para 2 Hx # Term Pregnancies Multiple births Hx # Pregnancies Ectopic pregnancies AB induced Hx Number of Living Children AB spontaneous Exam Const General: cooperative, healthy appearing, comfortable and no acute distress Orientation: alert and awake HENMT Head: normal to inspection, normocephalic and atraumatic Eyes General: appearance normal, both eyes and all related structures Conjunctivae: conjunctivae normal Neck Neck: normal visual inspection, trachea midline and supple Resp Effort & Inspection: normal respiratory effort and able to speak in complete sentences Cardio Rate: regular rate Rhythm: regular rhythm Skin General skin exam: no rashes or lesions noted Neuro General: patient alert, patient awake, moves all extremities and no focal motor deficits Sensory Exam: no sensory deficits noted Extrem Left lower extremity: ankle Details: tenderness, swelling and ecchymosis Other: All lateral aspect with bony point tenderness over the distal fibula. Skin intact. Neuro, vascular, tendon intact. Normal pedal pulse and capillary refill Psych Appearance: grossly normal Mental Status: mental status grossly normal
[2021-04-07] MEDS: Ibuprofen 800 MG TAB PO (09:19)
--- NOTE | 2021-04-07 09:42 | DI.RAD_ITS ---
Exam(s) XR ANKLE LT COMPLETE EXAM: XR ANKLE LT COMPLETE CLINICAL HISTORY: twist TECHNIQUE: 2D digital imaging was performed. COMPARISON: CR RIGHT ANKLE COMPLETE from 08/11/2016 FINDINGS: BONES: Extending transversely through the lateral malleolus. No additional fractures. No bony destr uctive lesion is seen. JOINTS:The ankle mortise is normally aligned. SOFT TISSUE: Swelling around lateral malleolus. IMPRESSION: Nondisplaced fracture lateral malleolus. DATA REPOSITORY: RADIATION DOSE DELIVERED:
== END 2021-04-07 09:58 | disposition home or self-care (01) ==
PROVIDERS: Emergency Provider Physician Assistant; PCP Physician Assistant
DX: S82.65XA Nondisplaced fracture of lateral malleolus of left fibula, initial encounter for closed fracture (principal); X50.1XXA Overexertion from prolonged static or awkward postures, initial encounter; Y99.0 Civilian activity done for income or pay
CPT/HCPCS: 29505; 99284; 73610

== ENCOUNTER 2021-04-17 12:38 | Outpatient (CLI) | payer OTHER, SELFPAY ==
--- NOTE | 2021-04-17 09:15 | DI.RAD_ITS ---
Exam(s) XR ANKLE LT COMPLETE EXAM: XR ANKLE LT COMPLETE CLINICAL HISTORY: left ankle fracture TECHNIQUE: 2D digital imaging was performed of the left ankle. Three images were obtained. AP, lat eral and oblique views were obtained. COMPARISON: CR XR ANKLE LT COMPLETE from 04/07/2021 FINDINGS: BONES: There has been no change in alignment of the fracture involving the lateral malleolus. No bon y destructive lesion is seen. JOINTS:The ankle mortise is normally aligned. SOFT TISSUE: There has been slight decrease in the soft tissue swelling around the lateral ankle. IMPRESSION: Stable alignment of the lateral malleolar fracture. DATA REPOSITORY: RADIATION DOSE DELIVERED:
== END 2021-04-17 12:39 | disposition home or self-care (01) ==
LOC: DIORS 12:39
PROVIDERS: PCP Physician Assistant; Referring Provider Physician Assistant; Visit Provider Physician Assistant
DX: S82.65XA Nondisplaced fracture of lateral malleolus of left fibula, initial encounter for closed fracture (principal); X50.1XXA Overexertion from prolonged static or awkward postures, initial encounter
CPT/HCPCS: 73610

== ENCOUNTER 2021-05-02 01:44 | Outpatient (RCR) | payer MEDICAID, SELFPAY ==
[2021-04-22 00:13] VITALS: BP 121/80; PULSE 78; RESP 16; TEMP 36.4
[2021-05-01] MEDS: Normal Saline Flush 10 ML SYR IVP (12:52)
[2021-05-01] MEDS: diphenhydrAMINE 25 MG CAP PO (12:52)
[2021-05-01 12:55] VITALS: BP 113/72; PULSE 66; RESP 16; TEMP 36.2; O2SAT 96
[2021-05-01] MEDS: IMMUNE GLOBULIN 5 GM/50 ML BTL IV (13:05)
[2021-05-01 13:20] VITALS: BP 114/71; PULSE 70; RESP 17; TEMP 36.6; O2SAT 97
[2021-05-01 13:35] VITALS: BP 115/72; PULSE 75; RESP 16; TEMP 36.6; O2SAT 98
[2021-05-01] MEDS: IMMUNE GLOBULIN 10 GM/100 ML BTL IV (13:39)
[2021-05-01 13:50] VITALS: BP 107/72; PULSE 59; RESP 16; TEMP 36.2; O2SAT 98
[2021-05-01] MEDS: IMMUNE GLOBULIN 20 GM/200 ML BTL IV (14:15)
[2021-05-01 14:20] VITALS: BP 108/68; PULSE 61; RESP 17; TEMP 35.7; O2SAT 96
[2021-05-02] MEDS: diphenhydrAMINE 25 MG CAP PO (12:52)
[2021-05-02] MEDS: Acetaminophen 325 MG TAB 650 MG PO (12:53)
[2021-05-02] MEDS: Normal Saline Flush 10 ML SYR IVP (12:53)
[2021-05-02] MEDS: IMMUNE GLOBULIN 5 GM/50 ML BTL IV (12:57)
[2021-05-02 13:05] VITALS: BP 132/86; PULSE 86; RESP 16; TEMP 36.5; O2SAT 98
[2021-05-02 13:19] VITALS: BP 137/87; PULSE 97; RESP 17; TEMP 36.7; O2SAT 97
[2021-05-02] MEDS: IMMUNE GLOBULIN 10 GM/100 ML BTL IV (13:31)
[2021-05-02 13:34] VITALS: BP 134/88; PULSE 94; RESP 16; TEMP 36.6; O2SAT 96
[2021-05-02 14:05] VITALS: BP 127/79; PULSE 80; RESP 16; TEMP 35.8; O2SAT 97
[2021-05-02] MEDS: IMMUNE GLOBULIN 20 GM/200 ML BTL IV (14:14)
[2021-05-02 14:35] VITALS: BP 120/84; PULSE 73; RESP 16; TEMP 36; O2SAT 97
== END 2021-05-19 23:59 | disposition home or self-care (01) ==
LOC: INF 01:44
PROVIDERS: PCP Physician Assistant; Visit Provider Family Medicine
DX: G70.01 Myasthenia gravis with (acute) exacerbation (principal)
CPT/HCPCS: 96365; 96366; J1459

== ENCOUNTER 2021-05-15 08:48 | Outpatient (CLI) | payer MEDICAID, SELFPAY ==
--- NOTE | 2021-05-15 08:15 | DI.RAD_ITS ---
Exam(s) XR ANKLE LT COMPLETE EXAM: XR ANKLE LT COMPLETE CLINICAL HISTORY: left ankle fracture. TECHNIQUE: 2D digital imaging was performed. COMPARISON: CR XR ANKLE LT COMPLETE from 04/17/2021 FINDINGS: There is soft tissue swelling laterally and there is a nondisplaced transverse fracture in the latera l malleolus. Medial and posterior malleoli are intact. There is no widening of the mortise. Talar dome appears un remarkable. Base of the 5th metatarsal is intact. IMPRESSION: There is transverse fracture of the lateral malleolus. Nondisplaced. No widening of the mortise lamar dent on these nonstress views. DATA REPOSITORY: RADIATION DOSE DELIVERED:
== END 2021-05-15 08:49 | disposition home or self-care (01) ==
LOC: DIORS 08:49
PROVIDERS: PCP Physician Assistant; Referring Provider Physician Assistant; Visit Provider Student in an Organized Health Care Education/Training Program
DX: S82.65XD Nondisplaced fracture of lateral malleolus of left fibula, subsequent encounter for closed fracture with routine healing (principal); X50.1XXD Overexertion from prolonged static or awkward postures, subsequent encounter
CPT/HCPCS: 73610

== ENCOUNTER 2021-05-30 03:15 | Outpatient (RCR) | payer MEDICAID, SELFPAY ==
[2021-05-20 00:13] VITALS: BP 120/84; PULSE 73; RESP 16; TEMP 36
[2021-05-29] MEDS: Normal Saline Flush 10 ML SYR IVP (13:08)
[2021-05-29] MEDS: diphenhydrAMINE 25 MG CAP PO (13:08)
[2021-05-29] MEDS: Acetaminophen 325 MG TAB 650 MG PO (13:08)
[2021-05-29 13:20] VITALS: BP 106/67; PULSE 69; RESP 17; TEMP 36.2; O2SAT 98
[2021-05-29] MEDS: IMMUNE GLOBULIN 40 GM/400 ML BTL IV (13:25)
[2021-05-29 13:40] VITALS: BP 107/71; PULSE 65; RESP 17; TEMP 36.6; O2SAT 97
[2021-05-29 13:55] VITALS: BP 121/73; PULSE 75; RESP 16; TEMP 36.7; O2SAT 98
[2021-05-29 14:25] VITALS: BP 108/69; PULSE 63; RESP 20; TEMP 36.5; O2SAT 98
[2021-05-29 14:57] VITALS: BP 102/65; PULSE 64; RESP 16; TEMP 36.3; O2SAT 100
[2021-05-29 15:25] VITALS: BP 108/62; PULSE 56; RESP 18; TEMP 36.3; O2SAT 99
== END 2021-06-19 23:59 | disposition home or self-care (01) ==
LOC: INF 03:15
PROVIDERS: PCP Physician Assistant; Visit Provider Family Medicine
DX: G70.01 Myasthenia gravis with (acute) exacerbation (principal)
CPT/HCPCS: 96365; 96366; J1459

== ENCOUNTER 2021-06-26 11:32 | Outpatient (CLI) | payer MEDICAID, SELFPAY ==
--- NOTE | 2021-06-26 11:15 | DI.RAD_ITS ---
Exam(s) XR ANKLE LT COMPLETE EXAM: XR ANKLE LT COMPLETE CLINICAL HISTORY: f/u L ANKLE FRACTURE TECHNIQUE: 2D digital imaging was performed of the left ankle. Three images were obtained. AP, lat eral and oblique views were obtained. COMPARISON: CR XR ANKLE LT COMPLETE from 05/15/2021 FINDINGS: BONES: There has been no change in alignment of the lateral malleolar fracture. The fracture line is still visualized. No new fracture is identified. No bony destructive lesion is seen. There is an e nthesophyte at the posterior calcaneus. JOINTS:The ankle mortise is normally aligned. SOFT TISSUE: Normal. IMPRESSION: Stable lateral malleolar fracture. DATA REPOSITORY: RADIATION DOSE DELIVERED:
== END 2021-06-26 11:33 | disposition home or self-care (01) ==
LOC: DIORS 11:32
PROVIDERS: PCP Physician Assistant; Referring Provider Physician Assistant; Visit Provider Student in an Organized Health Care Education/Training Program
DX: S82.65XD Nondisplaced fracture of lateral malleolus of left fibula, subsequent encounter for closed fracture with routine healing (principal); X58.XXXD Exposure to other specified factors, subsequent encounter
CPT/HCPCS: 73610

== ENCOUNTER 2021-08-27 03:16 | Outpatient (RCR) | payer MEDICAID, SELFPAY ==
[2021-08-20 00:06] VITALS: BP 108/62; PULSE 56; RESP 18; TEMP 36.3
[2021-08-27] VITALS (7 sets, daily range): BP systolic 104–110; BP diastolic 69–75; PULSE 63–79; RESP 16–17; TEMP 36.3–36.8; O2SAT 97–100
[2021-08-27] MEDS: Cetirizine 10 MG TAB PO (13:28)
[2021-08-27] MEDS: diphenhydrAMINE 25 MG CAP PO (13:28)
[2021-08-27] MEDS: Normal Saline Flush 10 ML SYR IVP (13:29)
[2021-08-27] MEDS: Acetaminophen 500 MG TAB 1000 MG PO (13:29)
[2021-08-27] MEDS: IMMUNE GLOBULIN 40 GM/400 ML BTL IVPB ×2 (13:36→15:28)
[2021-08-27 13:37] LABS: HCT 33.5 % (36.0-46.0); HGB 11.1 g/dL (11.2-15.7); MCH 34.8 pg (27.0-33.0); MCHC 33.1 % (32.0-36.0); MCV 105 fL (80-95); MPV 10.9 fL (8.0-11.0); Platelet Count 211 10^3/uL (130-400); RBC 3.19 10^6/uL (3.93-5.22); RDW-SD 53.5 fL; WBC 6.59 10^3/uL (4.4-10.8)
[2021-08-27 13:55] LABS: ALT 27 U/L (14-59); AST 27 U/L (15-37); Albumin 3.9 g/dL (3.4-5.0); Alkaline Phosphatase 55 U/L (46-116); Anion Gap 10.2 mmol/L (3-11); BUN 14 mg/dL (7-18); Bilirubin, Total 0.6 mg/dL (0.2-1.0); CO2 24.8 mmol/L (21.0-32.0); CREATININE 1.4 mg/dL (0.55-1.02); Calcium 8.9 mg/dL (8.5-10.1); Chloride 104 mmol/L (98-107); Estimated GFR 41.65 (mL/min/1.73m2); GGT 15 U/L (5-55); Glucose 115 mg/dL (74-106); Sodium 139 mmol/L (136-145); Total Protein 7.5 g/dL (6.4-8.2)
== END 2021-09-18 23:59 | disposition home or self-care (01) ==
LOC: INF 03:16
PROVIDERS: Psychiatry & Neurology Neurology; PCP Physician Assistant; Visit Provider Family Medicine
DX: G70.01 Myasthenia gravis with (acute) exacerbation (principal)
CPT/HCPCS: 36415; 80053; 85027; 96365; 96366; 82977; J1459

== ENCOUNTER 2021-09-08 02:55 | Outpatient (CLI) | payer MEDICAID, SELFPAY ==
[2021-09-08 16:09] LABS: HCT 33.5 % (36.0-46.0); HGB 11.1 g/dL (11.2-15.7); MCH 34.3 pg (27.0-33.0); MCHC 33.1 % (32.0-36.0); MCV 103 fL (80-95); MPV 10.6 fL (8.0-11.0); Platelet Count 233 10^3/uL (130-400); RBC 3.24 10^6/uL (3.93-5.22); RDW 14.2 % (11.7-14.6); RDW-SD 53.8 fL; WBC 5.25 10^3/uL (4.4-10.8)
[2021-09-08 16:25] LABS: Anion Gap 8.3 mmol/L (3-11); BUN 11 mg/dL (7-18); CO2 27.7 mmol/L (21.0-32.0); CREATININE 0.9 mg/dL (0.55-1.02); Calcium 8.9 mg/dL (8.5-10.1); Chloride 99 mmol/L (98-107); Glucose 88 mg/dL (74-106); Potassium 3.2 mmol/L (3.5-5.1); Sodium 135 mmol/L (136-145)
== END 2021-09-08 02:56 | disposition home or self-care (01) ==
LOC: LBO 02:55
PROVIDERS: PCP Physician Assistant; Visit Provider Psychiatry & Neurology Neurology
DX: N28.9 Disorder of kidney and ureter, unspecified (principal); D64.9 Anemia, unspecified
CPT/HCPCS: 36415; 80048; 85027

== ENCOUNTER 2021-09-26 01:09 | Outpatient (RCR) | payer MEDICAID, SELFPAY ==
[2021-09-19 00:04] VITALS: BP 108/72; PULSE 64; RESP 17; TEMP 36.4
[2021-09-26] VITALS (9 sets, daily range): BP systolic 112–128; BP diastolic 65–85; PULSE 54–74; RESP 12–17; TEMP 36.3–36.6; O2SAT 97–100
[2021-09-26] MEDS: Cetirizine 10 MG TAB PO (13:08)
[2021-09-26] MEDS: diphenhydrAMINE 25 MG CAP PO (13:08)
[2021-09-26] MEDS: Normal Saline Flush 10 ML SYR IVP (13:08)
[2021-09-26] MEDS: Acetaminophen 500 MG TAB 1000 MG PO (13:08)
[2021-09-26] MEDS: IMMUNE GLOBULIN 40 GM/400 ML BTL IVPB ×2 (13:14→15:19)
[2021-09-26 13:29] LABS: CREATININE 0.9 mg/dL (0.55-1.02)
== END 2021-10-19 23:59 | disposition home or self-care (01) ==
LOC: INF 01:09
PROVIDERS: Psychiatry & Neurology Neurology; PCP Physician Assistant; Visit Provider Family Medicine
DX: G70.01 Myasthenia gravis with (acute) exacerbation (principal)
CPT/HCPCS: 96365; 96366; 82565; J1459

== ENCOUNTER 2021-10-07 01:59 | Outpatient (CLI) | payer MEDICAID, SELFPAY ==
[2021-10-07 16:04] LABS: ALT 17 U/L (14-59); AST 16 U/L (15-37); GGT 12 U/L (5-55)
== END 2021-10-07 02:00 | disposition home or self-care (01) ==
PROVIDERS: PCP Physician Assistant; Visit Provider Nurse Practitioner Gerontology
DX: F11.20 Opioid dependence, uncomplicated (principal)
CPT/HCPCS: 36415; 82977; 84450; 84460

== ENCOUNTER 2021-11-04 09:01 | Emergency (ER) | payer OTHER, SELFPAY ==
--- NOTE | 2021-11-04 09:00 | DI.RAD_ITS ---
Exam(s) XR ANKLE LT COMPLETE EXAM: XR ANKLE LT COMPLETE CLINICAL HISTORY: twist injury. TECHNIQUE: 2D digital imaging was performed. COMPARISON: No exams were available for comparison FINDINGS: 3 views No evidence of fracture nor widening of the mortise. Talar dome unremarkable. Bone density normal. No osseous lesions. No inferior calcaneal spur. IMPRESSION: No fracture evident. No obvious degenerative changes. DATA REPOSITORY: RADIATION DOSE DELIVERED:
[2021-11-04 09:04] VITALS: BP 98/55; PULSE 55; RESP 18; TEMP 36.2; O2SAT 97
--- NOTE | 2021-11-04 09:14 | ED.GENADUL_ITS ---
Discharge Plan Disposition Patient Disposition: HOME Condition: Stable Discharge Details Clinical Impression: Left ankle sprain Primary Care Provider: Barrera Dsouza ED Provider: Silvestre Gore [place] Meds and New Rx's Prescriptions: Continued omeprazole 40 mg capsule,delayed release(DR/EC) 40 mg PO DAILY Qty: 90 3RF buprenorphine-naloxone [Suboxone] 8-2 mg film 1 film sublingual BID prochlorperazine maleate [Compazine] 10 mg tablet 10 mg PO TID PRN (Reason: nausea and vomiting) Qty: 90 3RF prednisone 5 mg tablet 5 mg PO DAILY Qty: 30 5RF Rx Instructions: In addition to 20mg tabs for total 25mg daily pyridostigmine bromide [Mestinon] 60 mg tablet 60 mg PO TID Qty: 270 3RF azathioprine 50 mg tablet 250 mg PO DAILY Qty: 450 3RF sertraline 50 mg tablet 50 mg PO DAILY ibuprofen 200 mg capsule 200 mg PO Q6H PRN sulfamethoxazole-trimethoprim 800-160 mg tablet 1 tab PO .COMPLEX Qty: 45 3RF Rx Instructions: 1 tab PO 3x per week, every other day; methylphenidate HCl 20 mg tablet 20 mg PO TID MDD 60mg Qty: 90 0RF Rx Instructions: at am, noon, and 2pm; do not fill early ondansetron 4 mg tablet,disintegrating 4 mg PO Q8H PRN (Reason: nausea and vomiting) Qty: 30 2RF acetaminophen [Tylenol] 325 mg Tablet 650 mg PO Q4H PRN PRNQty: 0 0RF chjcwtnddq-cqljiaiyzdmbl-woxf [Fioricet] 50-300-40 mg capsule 1 cap PO TID PRN (Reason: pain) Qty: 30 0RF buprenorphine-naloxone [Suboxone] 2-0.5 mg film 2 film sublingual DAILY Label Comments: PLACE TWO FILMS UNDER THE TONGUE EVERY DAY Discharge Instructions Instructions: Ankle Sprain (ED) Additional Instructions: X-ray is unremarkable. Wear brace as needed, advance activity as tolerated. Rest, elevate, cool compresses every 2 hours for 20 minutes. Please watch for new or worsening symptoms and return to the ER for any concerns. Lastly, if symptoms not improving with conservative measures over the next 5 days please contact your primary care provider for outpatient Stand Alone Forms: Work Release Medical Decision Making 41-year-old female who reports twisting her ankle yesterday, now with moderate pain worse with ambulation. Reports history of a fracture, concern for the same today. Clinically she appears well, nontoxic, is able to bear weight with a slightly antalgic gait. There is discomfort across the lateral malleolus associated with swelling. Ankle is neuro, vascular, tendon intact. Normal capillary refill and dorsalis pedal pulse. Skin is intact. Will obtain x-ray and reassess. X-ray unremarkable. Discussed x-rays with patient. She is relieved and is requesting a work note for today. She reports already having a walking boot, splint, and crutches at home. She actually has her lace up splint here with her and it was applied before discharge. Standard discharge and return precautions were provided. Patient understands, is agreeable to this plan, and has no additional questions or concerns upon discharge. This documentation was generated using [employer] system, please disregard any oddities of phrase or misspellings. Medical Records Medical records reviewed: Yes I reviewed the patient's medical records. Imaging Data Radiologic Study: Attestation: I personally reviewed and interpreted this imaging study as follows: Radiologist's impression: Exam(s) XR ANKLE LT COMPLETE EXAM: XR ANKLE LT COMPLETE CLINICAL HISTORY: twist injury. TECHNIQUE: 2D digital imaging was performed. COMPARISON: No exams were available for comparison FINDINGS: 3 views No evidence of fracture nor widening of the mortise. Talar dome unremarkable. Bone density normal. No osseous lesions. No inferior calcaneal spur. IMPRESSION: No fracture evident. No obvious degenerative changes. HPI General Mode of arrival: ambulatory . Date/Time Provider Initiated Documentation: 11/04/21 09:12 . Limitations to Documentation: no limitations . Information obtained by: patient . History of Present Illness 41 year old F presents to the emergency department with the chief complaint of L ankle pain, described as moderate, with intensity rated at 5. Quality is described as aching, and is localized to the left and lower extremity. Patient reports no radiation. Patient started experiencing this day(s) (1) and it has been constant. Movement improves symptom(s), Immoblization worsens symptoms . Patient notes no other symptoms.. Patient did receive the following treatments prior to arrival, none Related Data Home Medications Medication Instructions Recorded Confirmed ibuprofen 200 mg capsule 200 mg PO Q6H PRN 04/26/19 11/04/21 sertraline 50 mg tablet 50 mg PO DAILY 06/05/20 11/04/21 acetaminophen 325 mg tablet 650 mg PO Q4H PRN PRN #0 tabs 09/03/20 11/04/21 (Tylenol) asvbckakkq-kfonjkqsymgza-bdvfcnrl 1 cap PO TID PRN pain #30 caps 01/10/21 11/04/21 50 mg-300 mg-40 mg capsule (Fioricet) buprenorphine 2 mg-naloxone 0.5 mg 2 film sublingual DAILY 01/15/21 11/04/21 sublingual film (Suboxone) omeprazole 40 mg capsule,delayed 40 mg PO DAILY #90 caps 01/29/21 11/04/21 release buprenorphine 8 mg-naloxone 2 mg 1 film sublingual BID 02/11/21 11/04/21 sublingual film (Suboxone) prochlorperazine maleate 10 mg 10 mg PO TID PRN nausea and 02/11/21 11/04/21 tablet (Compazine) vomiting #90 tabs sulfamethoxazole 800 1 tab PO .COMPLEX #45 tabs 03/31/21 11/04/21 mg-trimethoprim 160 mg tablet azathioprine 50 mg tablet 250 mg PO DAILY #450 tabs 05/01/21 11/04/21 prednisone 5 mg tablet 5 mg PO DAILY #30 tabs 05/01/21 11/04/21 pyridostigmine bromide 60 mg 60 mg PO TID #270 tabs 05/01/21 11/04/21 tablet (Mestinon) methylphenidate HCl 20 mg tablet 20 mg PO TID #90 tabs 09/24/21 11/04/21 ondansetron 4 mg disintegrating 4 mg PO Q8H PRN nausea and 10/07/21 11/04/21 tablet vomiting #30 tabs Previous Rx's Medication Instructions Recorded acetaminophen 325 mg tablet 650 mg PO Q4H PRN PRN #0 tabs 09/03/20 (Tylenol) hsuozzgzox-srhehkjgkekxn-qypwhyah 1 cap PO TID PRN pain #30 caps 01/10/21 50 mg-300 mg-40 mg capsule (Fioricet) omeprazole 40 mg capsule,delayed 40 mg PO DAILY #90 caps 01/29/21 release prochlorperazine maleate 10 mg 10 mg PO TID PRN nausea and 02/11/21 tablet (Compazine) vomiting #90 tabs sulfamethoxazole 800 1 tab PO .COMPLEX #45 tabs 03/31/21 mg-trimethoprim 160 mg tablet azathioprine 50 mg tablet 250 mg PO DAILY #450 tabs 05/01/21 prednisone 5 mg tablet 5 mg PO DAILY #30 tabs 05/01/21 pyridostigmine bromide 60 mg 60 mg PO TID #270 tabs 05/01/21 tablet (Mestinon) methylphenidate HCl 20 mg tablet 20 mg PO TID #90 tabs 09/24/21 ondansetron 4 mg disintegrating 4 mg PO Q8H PRN nausea and 10/07/21 tablet vomiting #30 tabs Allergies Allergy/AdvReac Type Severity Reaction Status Date / Time adhesive tape Allergy Severe pealed her Verified 09/25/21 09:19 skin off when removing the tape. General Stated Complaint: Orthopedic CHRIS: 4 Review of Systems Constitutional Constitutional: Denies weakness Musculoskeletal Musculoskeletal: Reports arthralgias, Denies numbness, Reports stiffness and Denies tingling Integumentary/Breasts Skin/Breast: Denies erythema Neurologic Neurologic: Denies numbness, Denies tingling and Denies weakness PFSH All Active Problems (Updated 11/04/21 @ 09:56 by ASHOK Cantrell) Left ankle sprain (Acute) Left eye pain (Acute) Closed left ankle fracture (Acute 04/07/21) Myasthenia gravis with exacerbation (Acute) Headache (Acute) Myasthenic crisis (Acute) Shortness of breath (Acute) Upper back pain (Acute) Carpal tunnel syndrome on left (Acute) Anemia (Chronic) Carpal tunnel syndrome on right (Acute) s/p right ECTR DOS: 02/19/20 Dr. Gottlieb Thymoma (Acute) Hypersomnia (Acute) Myasthenia gravis (Chronic) Medical History Abnormal uterine bleeding (AUB) (05/16/15) Depression Encounter for [facility] current use of azathioprine Incompetent cervix Irregular menses (01/12/14) Polysubstance (including opioids) dependence with physiol dependence On Suboxone, pt states she has been tapering off this medication Surgical History History of thymectomy Hx of breast implants, bilateral S/P dilatation and curettage S/P tubal ligation Social History Smoking/Tobacco Use Status: Former Tobacco Use Tobacco: How many years used: 20 Quit status: not considering quitting Smoking risk assessment performed?: Yes Alcohol Intake: never Drug use: Occasionally Substance use type: former substance user and marijuana Details: Occ. Pot Number of Children: 2 current occupation: Unemployed Current gender identity: female Do you feel safe at home: Yes Do you feel safe in your relationship?: Yes Female Reproductive History Menstrual control method: permanent sterilization History History 4 Para 2 Hx # Term Pregnancies Multiple births Hx # Pregnancies Ectopic pregnancies AB induced Hx Number of Living Children AB spontaneous Exam Const General: cooperative, healthy appearing, comfortable and no acute distress Orientation: alert and awake HENMT Head: normal to inspection, normocephalic and atraumatic Eyes Conjunctivae: conjunctivae normal Neck Neck: normal visual inspection, trachea midline and supple Resp Effort & Inspection: normal respiratory effort and able to speak in complete s entences Cardio Rate: regular rate Rhythm: regular rhythm Skin General skin exam: no rashes or lesions noted Neuro General: patient alert, patient awake, moves all extremities and no focal motor deficits Cognition: normal cognition Speech: speech normal Gait: antalgic Sensory Exam: no sensory deficits noted Extrem General: full ROM and capillary refill normal Left lower extremity: full ROM, normal capillary refill, ankle Details: tenderness Location: of the lateral malleolus and swelling Details: laterally and foot Details: normal capillary refill and normal to inspection; no tenderness Psych Appearance: grossly normal Mental Status: mental status grossly normal Course Vital Signs Vital signs: Vital Signs Temperature 36.2 C L 11/04/21 09:04 Pulse 55 L 11/04/21 09:04 Respiratory Rate 18 11/04/21 09:04 Blood Pressure 98/55 L 11/04/21 09:04 Pulse Oximetry 97 11/04/21 09:04 Temperature 36.2 C L 11/04/21 09:04 Temperature Source Temporal Artery Scan 11/04/21 09:04 Pulse 55 L 11/04/21 09:04 Respiratory Rate 18 11/04/21 09:04 Blood Pressure 98/55 L 11/04/21 09:04 Blood Pressure Position Sitting 11/04/21 09:04 Pulse Oximetry 97 11/04/21 09:04 Oxygen Delivery Method Room Air 11/04/21 09:04 Oxygen Flow Rate 0 11/04/21 09:04 Pain Level 3 11/04/21 09:04
[2021-11-04 10:14] VITALS: BP 98/55; PULSE 55; RESP 18; TEMP 36.2; O2SAT 97
== END 2021-11-04 10:13 | disposition home or self-care (01) ==
PROVIDERS: Emergency Provider Physician Assistant; PCP Physician Assistant
DX: S93.402A Sprain of unspecified ligament of left ankle, initial encounter (principal); Z87.891 Personal history of nicotine dependence; X50.1XXA Overexertion from prolonged static or awkward postures, initial encounter
CPT/HCPCS: 99283; 73610; 99282

== ENCOUNTER 2021-12-04 03:18 | Outpatient (RCR) | payer MEDICAID, SELFPAY ==
[2021-12-04] VITALS (9 sets, daily range): BP systolic 89–121; BP diastolic 56–76; PULSE 50–86; RESP 16; TEMP 35.6–36.4; O2SAT 98–100
[2021-12-04] MEDS: diphenhydrAMINE 25 MG CAP PO (10:58)
[2021-12-04] MEDS: Cetirizine 10 MG TAB PO (10:59)
[2021-12-04] MEDS: Normal Saline Flush 10 ML SYR IVP (10:59)
[2021-12-04] MEDS: Acetaminophen 500 MG TAB 1000 MG PO (10:59)
[2021-12-04] MEDS: IMMUNE GLOBULIN 40 GM/400 ML BTL IVPB ×2 (11:23→13:20)
[2021-12-04 12:00] LABS: CREATININE 0.8 mg/dL (0.55-1.02); Estimated GFR 95.46 (mL/min/1.73m2)
== END 2021-12-19 23:59 | disposition home or self-care (01) ==
LOC: INF 03:18
PROVIDERS: PCP Physician Assistant; Visit Provider Psychiatry & Neurology Neurology
DX: G70.01 Myasthenia gravis with (acute) exacerbation (principal)
CPT/HCPCS: 96365; 96366; 82565; J1459

== ENCOUNTER 2022-01-02 01:14 | Outpatient (RCR) | payer MEDICAID, SELFPAY ==
[2021-12-20 00:24] VITALS: BP 112/76; PULSE 56; RESP 16; TEMP 35.7
[2022-01-02] VITALS (7 sets, daily range): BP systolic 90–112; BP diastolic 52–78; PULSE 53–73; RESP 16–18; TEMP 36–36.6; O2SAT 97–100
[2022-01-02] MEDS: Cetirizine 10 MG TAB PO (11:25)
[2022-01-02] MEDS: diphenhydrAMINE 25 MG CAP PO (11:25)
[2022-01-02] MEDS: Acetaminophen 500 MG TAB 1000 MG PO (11:25)
[2022-01-02] MEDS: Normal Saline Flush 10 ML SYR IVP (11:28)
[2022-01-02] MEDS: IMMUNE GLOBULIN 40 GM/400 ML BTL IVPB ×2 (11:38→13:42)
[2022-01-02 12:04] LABS: CREATININE 0.7 mg/dL (0.55-1.02); Estimated GFR 112.05 (mL/min/1.73m2)
== END 2022-01-19 23:59 | disposition home or self-care (01) ==
LOC: INF 01:14
PROVIDERS: PCP Physician Assistant; Visit Provider Psychiatry & Neurology Neurology
DX: G70.01 Myasthenia gravis with (acute) exacerbation (principal)
CPT/HCPCS: 36415; 96365; 96366; 82565; J1459

== ENCOUNTER 2022-01-30 00:56 | Outpatient (RCR) | payer MEDICAID, SELFPAY ==
[2022-01-20 00:09] VITALS: BP 112/78; PULSE 60; RESP 17; TEMP 36.1
[2022-01-30] MEDS: Acetaminophen 500 MG TAB (11:15)
[2022-01-30] MEDS: Cetirizine 10 MG TAB (11:16)
[2022-01-30] MEDS: diphenhydrAMINE 25 MG CAP (11:16)
[2022-01-30] MEDS: IMMUNE GLOBULIN 80 GM/800 ML BTL IVPB ×2 (11:22→13:32)
[2022-01-30 11:25] VITALS: BP 108/75; PULSE 76; RESP 16; TEMP 36.8; O2SAT 100
[2022-01-30 11:33] LABS: CREATININE 0.7 mg/dL (0.55-1.02); Estimated GFR 111.36 (mL/min/1.73m2)
[2022-01-30 11:45] VITALS: BP 113/75; PULSE 82; RESP 16; TEMP 37.2; O2SAT 99
[2022-01-30 12:00] VITALS: BP 118/78; PULSE 74; RESP 16; TEMP 37; O2SAT 99
[2022-01-30 12:30] VITALS: BP 105/74; PULSE 63; RESP 18; TEMP 37; O2SAT 100
[2022-01-30 13:00] VITALS: BP 113/79; PULSE 72; RESP 18; TEMP 36.8; O2SAT 99
[2022-01-30 14:55] VITALS: BP 100/66; PULSE 60; RESP 18; TEMP 36.7
== END 2022-02-18 23:59 | disposition home or self-care (01) ==
LOC: INF 00:56
PROVIDERS: PCP Physician Assistant; Visit Provider Psychiatry & Neurology Neurology
DX: G70.01 Myasthenia gravis with (acute) exacerbation (principal)
CPT/HCPCS: 96365; 96366; 82565; J1459

== ENCOUNTER 2022-02-21 20:38 | Emergency (ER) | payer MEDICAID, SELFPAY ==
[2022-02-21 20:53] VITALS: BP 107/71; PULSE 67; RESP 16; TEMP 36.6; O2SAT 99
--- NOTE | 2022-02-21 21:30 | DI.CT_ITS ---
Exam(s) CT HEAD WO EXAM: CT HEAD WO CLINICAL HISTORY: BELL left side, hx of MG. TECHNIQUE: Imaging Protocol: Axial computed tomography images with coronal and sagittal reformatted images were created and reviewed COMPARISON: CT CT BRAIN CTA from 01/10/2021 FINDINGS: The ventricular system is normal in appearance. No evidence of acute intracranial hemorrhage, mass effect, or midline shift. The orbital structures are unremarkable. The temporal bone structures appear intact. Calvarium: Normal. Visualized Paranasal sinuses/Mastoids: Clear. IMPRESSION: Normal cranial CT. RADIATION DOSE DELIVERED: 672.95mGy.cm Total DLP 672.95mGy.cm Total DLP DATA REPOSITORY: All CT scans at this facility are submitted to the National Radiology Data Registry (NRDR) Dose Index Registry (DIR) with the [employer] ([employer]). RADIATION OPTIMIZATION: All CT scans at this facility use at least one of these dose optimization te chniques: automated exposure control; mA and/or kV adjustment per patient size (includes targeted exa ms where dose is matched to clinical indication); or iterative reconstruction.
[2022-02-21 22:21] LABS: ALT 10 U/L (14-59); AST 19 U/L (15-37); Albumin 3.4 g/dL (3.4-5.0); Alkaline Phosphatase 63 U/L (46-116); Anion Gap 6.1 mmol/L (3-11); BUN 10 mg/dL (7-18); Bilirubin, Total 0.5 mg/dL (0.2-1.0); CO2 28.9 mmol/L (21.0-32.0); CREATININE 0.7 mg/dL (0.55-1.02); Calcium 8.5 mg/dL (8.5-10.1); Chloride 103 mmol/L (98-107); Estimated GFR 111.36 (mL/min/1.73m2); Glucose 89 mg/dL (74-106); Potassium 3.8 mmol/L (3.5-5.1); Sodium 138 mmol/L (136-145)
[2022-02-21 22:33] LABS: Abs Immature Grans 0.01 10^3/uL (0.0-0.06); Absolute Basophil Count 0.03 10^3/uL (0.0-0.2); Absolute Eosinophil Count 0.03 10^3/uL (0.0-0.7); Absolute Lymphocyte Count 1.37 10^3/uL (1.2-3.4); Absolute Monocyte Count 0.51 10^3/uL (0.1-0.8); Absolute Neutrophil Count 1.41 10^3/uL (1.2-6.7); Basophils % 0.9; Eosinophils % 0.9; HGB 9.1 g/dL (11.2-15.7); Immature Grans % 0.3; Lymphocytes % 40.8; MCH 34.9 pg (27.0-33.0); MCHC 33.7 % (32.0-36.0); MCV 103 fL (80-95); MPV 10.8 fL (8.0-11.0); Monocytes % 15.2; Neutrophils % 41.9; Platelet Count 187 10^3/uL (130-400); RBC 2.61 10^6/uL (3.93-5.22); RDW 13.5 % (11.7-14.6); RDW-SD 51.4 fL; WBC 3.36 10^3/uL (4.4-10.8)
[2022-02-21 22:43] LABS: COVID-19 PCR Negative (Negative); Influenza A PCR Negative (Negative); Influenza B PCR Negative (Negative); RSV PCR Negative (Negative)
[2022-02-21 22:47] LABS: Source Nasopharynx
[2022-02-21 22:49] LABS: TSH (W/Ref FT4) 0.59 uIU/mL (0.36-3.74)
--- NOTE | 2022-02-21 22:52 | DI.VRAD_ITS ---
PROCEDURE INFORMATION: Exam: CT Head Without Contrast Exam date and time: 02/21/2022 10:34 PM Age: 42 years old Clinical indication: Pain; Headache not specified; Patient HX: H/a left side, HX of MG. TECHNIQUE: Imaging protocol: Computed tomography of the head without contrast. Radiation optimization: All CT scans at this facility use at least one of these dose optimization techniques: automated exposure control; mA and/or kV adjustment per patient size (includes targeted exams where dose is matched to clinical indication); or iterative reconstruction. COMPARISON: CT BRAIN CTA 01/10/2021 8:29 PM FINDINGS: Brain: There is no acute intracranial hemorrhage, mass effect or midline shift. There is no large acute territorial cerebral infarct. A small focus of hypodensity in the left thalamus is nonspecific and could be secondary to a prominent perivascular space or prior lacunar infarct. Cerebral ventricles: No ventriculomegaly. Paranasal sinuses: Visualized sinuses are unremarkable. No fluid levels. Mastoid air cells: Visualized mastoid air cells are well aerated. Bones/joints: Unremarkable. No acute fracture. Soft tissues: There is redemonstration of medial herniation of the left orbital fat into the left ethmoid sinus, likely from remote injury. IMPRESSION: No acute intracranial hemorrhage, mass effect or midline shift. Dictated and Authenticated by: Angela Mcintosh MD. Ordering:JULIANE Vidal MD
--- NOTE | 2022-02-21 23:10 | ED.GENADUL_ITS ---
Discharge Plan Disposition Patient Disposition: Home Condition: Improving Discharge Details Clinical Impression: Headache, Anemia, Leukopenia Primary Care Provider: Barrera Dsouza ED Provider: Marcy Kaufman Home Meds and New Rx's Prescriptions: Continued omeprazole 40 mg capsule,delayed release(DR/EC) 40 mg PO DAILY Qty: 90 3RF buprenorphine-naloxone [Suboxone] 8-2 mg film 1 film sublingual BID sertraline 50 mg tablet 50 mg PO DAILY pyridostigmine bromide [Mestinon] 60 mg tablet 60 mg PO TID Qty: 270 3RF azathioprine 50 mg tablet 250 mg PO DAILY Qty: 450 3RF ibuprofen 200 mg capsule 200 mg PO Q6H PRN sulfamethoxazole-trimethoprim 800-160 mg tablet 1 tab PO .COMPLEX Qty: 45 3RF Rx Instructions: 1 tab PO 3x per week, every other day; ondansetron 4 mg tablet,disintegrating See Rx Instructions .ROUTE .COMPLEX Qty: 30 2RF Dose Instruction: PLACE ONE TABLET BY MOUTH EVERY 8 HOURS NEEDED FOR NAUSEA AND VOMITING Rx Instructions: PLACE ONE TABLET BY MOUTH EVERY 8 HOURS NEEDED FOR NAUSEA AND VOMITING prednisone 5 mg tablet See Rx Instructions .ROUTE .COMPLEX Qty: 30 4RF Dose Instruction: TAKE 1 TABLET BY MOUTH ONCE DAILY IN ADDITION TO 20MG TABLETS FOR TOTAL 25MG DAILY Rx Instructions: TAKE 1 TABLET BY MOUTH ONCE DAILY IN ADDITION TO 20MG TABLETS FOR TOTAL 25MG DAILY methylphenidate HCl 20 mg tablet 20 mg PO TID MDD 60mg Qty: 90 0RF Rx Instructions: at am, noon, and 2pm; ok to fill early today acetaminophen [Tylenol] 325 mg Tablet 650 mg PO Q4H PRN PRNQty: 0 0RF hluceaijxw-jnwrtplueilps-glas [Fioricet] 50-300-40 mg capsule 1 cap PO TID PRN (Reason: pain) Qty: 30 0RF Discharge Instructions Instructions: Anemia (ED), General Headache (ED) Additional Instructions: Your imaging was reassuring here today. As we discussed, I am concerned about your lab work as you had some low counts in your blood today. I am concerned that this is associated with your Azathioprine and I would like for you to discuss this with Dr. Biswas as soon as possible. Please call Wednesday to schedule appointment. As you do have lowered immune system, please return if you develop return of your headache, fever/chills, rash, neck pain or other new/worsening symptoms. Please follow up with primary care and Dr. Negron. Referrals: Barrera Dsouza [Primary Care Provider] - Discharge Data Discharge Date/Time-TO BE ENTERED AT DEPARTURE: 02/22/22 00:21 Medical Decision Making Patient is a pleasant 42-year-old female presents today with chief complaint of left-sided headache. States that it began about 15 minutes prior to arrival and feels like somebody stabbing me in the head. States that pain is improved with pressure applied to the left side of her scalp. Indicating up on the left crown aspect of her head. Has not had headache like this in the past. States it is a 7 out of 10. Past medical history is pertinent for myasthenia gravis. She reports that her myasthenia gravis is becoming more difficult to manage and that her needs for medications and interventions have been increasing. She is followed by Dr. Biswas. She denies any trauma. No fevers or chills. Denies any change in her vision. States that the left eye chronically has a droop, particularly prior to her IVIG which she is due for this coming week. She denies any rash. No pain radiating into her neck. Denies any nausea or vomiting. On exam, patient appears nontoxic. Vital signs are hemodynamically stable. She is sitting comfortably on her phone. Her neuro exam is intact. She does have a slight droop of the left upper eyelid but has good strength with facial testing. No nuchal rigidity. No rash. Given the sudden onset of discomfort, I did consider potential bleed although her description and severity rating is less likely. Patient also has had imaging in the past including head CTA with no evidence of aneurysm. Is completed in 2020. Will treat her pain with IV acetaminophen, Reglan, Benadryl, dexamethasone. She is chronically on steroids. Patient is immunocompromise. Labs reviewed. White count is low at 3.36. Also anemic with a hemoglobin of 9. 1. Patient has been anemic historically but not to this degree. CMP without significant abnormality. Thyroid within normal limits. COVID is negative. FINDINGS: Brain: There is no acute intracranial hemorrhage, mass effect or midline shift. There is no large acute territorial cerebral infarct. A small focus of hypodensity in the left thalamus is nonspecific and could be secondary to a prominent perivascular space or prior lacunar infarct. Cerebral ventricles: No ventriculomegaly. Paranasal sinuses: Visualized sinuses are unremarkable. No fluid levels. Mastoid air cells: Visualized mastoid air cells are well aerated. Bones/joints: Unremarkable. No acute fracture. Soft tissues: There is redemonstration of medial herniation of the left orbital fat into the left ethmoid sinus, likely from remote injury. IMPRESSION: No acute intracranial hemorrhage, mass effect or midline shift. Reevaluated the patient. She states that her pain is significantly improved. Upper lid not lagging as much, likely steroids. Report that she is ready for discharge. I did review the patient's medication list and I am concerned that the patient's Azathioprine will be causing some myelosuppression. Dr. Biswas's most recent note,Based on this does not sound to be surprising. She is aware that likely she will need to come off of this medication soon. She not have any focal deficits to suggest PML. She continues to deny any recent illness. No fevers or chills rash. No neck pain. Patient lives a significant other who is happy to continue to monitor at home. We did discuss possible need for further evaluation and we did discuss completing LP now but she declines. Would prefer to monitor and come back if needed. Strict return precautions discussed. She will call Dr. Worthy to schedule f/u. All of her quesitons and concerns are addressed, she is in agreement with this plan. Sign Out No HPI General Date/Time Provider Initiated Documentation: 02/21/22 21:28 . Limitations to Documentation: no limitations . Information obtained by: patient and RN notes reviewed . History of Present Illness 42 year old F presents to the emergency department with the chief complaint of BELL, described as severe, with intensity rated at 8. Quality is described as stabbing, and is localized to the head. Patient reports no radiation. Patient started experiencing this minute(s) and it has been constant. No relieving factors improve symptom(s), No exacerbating factors reported . Patient notes no other symptoms.. Patient did receive the following treatments prior to arrival, none Related Data Home Medications Medication Instructions Recorded Confirmed ibuprofen 200 mg capsule 200 mg PO Q6H PRN 04/26/19 02/21/22 sertraline 50 mg tablet 50 mg PO DAILY 06/05/20 02/21/22 acetaminophen 325 mg tablet 650 mg PO Q4H PRN PRN #0 tabs 09/03/20 02/21/22 (Tylenol) kercbylhkw-gpvcosytwlvxg-qqtchbdy 1 cap PO TID PRN pain #30 caps 01/10/21 02/21/22 50 mg-300 mg-40 mg capsule (Fioricet) omeprazole 40 mg capsule,delayed 40 mg PO DAILY #90 caps 01/29/21 02/21/22 release buprenorphine 8 mg-naloxone 2 mg 1 film sublingual BID 02/11/21 02/21/22 sublingual film (Suboxone) sulfamethoxazole 800 1 tab PO .COMPLEX #45 tabs 03/31/21 02/21/22 mg-trimethoprim 160 mg tablet ondansetron 4 mg disintegrating See Rx Instructions .Route 01/06/22 02/21/22 tablet .COMPLEX #30 tabs prednisone 5 mg tablet See Rx Instructions .Route 01/06/22 02/21/22 .COMPLEX #30 tabs azathioprine 50 mg tablet 250 mg PO DAILY #450 tabs 01/22/22 02/21/22 pyridostigmine bromide 60 mg 60 mg PO TID #270 tabs 01/22/22 02/21/22 tablet (Mestinon) methylphenidate HCl 20 mg tablet 20 mg PO TID #90 tabs 02/18/22 02/21/22 Previous Rx's Medication Instructions Recorded acetaminophen 325 mg tablet 650 mg PO Q4H PRN PRN #0 tabs 09/03/20 (Tylenol) gvkugxpdxv-fjpsszdoqsyag-awhbhyze 1 cap PO TID PRN pain #30 caps 01/10/21 50 mg-300 mg-40 mg capsule (Fioricet) omeprazole 40 mg capsule,delayed 40 mg PO DAILY #90 caps 01/29/21 release sulfamethoxazole 800 1 tab PO .COMPLEX #45 tabs 03/31/21 mg-trimethoprim 160 mg tablet ondansetron 4 mg disintegrating See Rx Instructions .Route 01/06/22 tablet .COMPLEX #30 tabs prednisone 5 mg tablet See Rx Instructions .Route 01/06/22 .COMPLEX #30 tabs azathioprine 50 mg tablet 250 mg PO DAILY #450 tabs 01/22/22 pyridostigmine bromide 60 mg 60 mg PO TID #270 tabs 01/22/22 tablet (Mestinon) methylphenidate HCl 20 mg tablet 20 mg PO TID #90 tabs 02/18/22 Allergies Allergy/AdvReac Type Severity Reaction Status Date / Time adhesive tape Allergy Severe pealed her Verified 02/21/22 20:56 skin off when removing the tape. General Stated Complaint: Headache CHRIS: 3 Review of Systems Constitutional Constitutional: Reports as per HPI, Denies chills, Reports fatigue, Denies fever(s), Denies frequent falls, Reports headache(s) and Denies weakness Eyes Eyes: Reports as per HPI, Denies blurry vision, Denies change in vision and Reports photophobia ENT Ears, Nose, Mouth, and Throat: Denies vertigo, Reports headache(s) and Denies neck pain Cardiovascular Cardiovascular: Reports as per HPI, Denies chest pain, Denies lightheadedness, Denies dyspnea and Denies dyspnea on exertion Respiratory Respiratory: Reports as per HPI, Denies chest congestion, Denies cough, Denies dyspnea and Denies dyspnea on exertion Gastrointestinal Gastrointestinal: Reports as per HPI, Denies abdominal pain, Denies change in bowel habits, Denies nausea and Denies vomiting Musculoskeletal Musculoskeletal: Reports as per HPI, Denies back pain, Denies myalgias, Denies muscle cramps, Denies neck pain and Denies numbness Integumentary/Breasts Skin/Breast: Reports as per HPI and Denies rash Neurologic Neurologic: Reports as per HPI, Denies abnormal movements, Denies abnormal speech, Denies behavioral changes, Denies confusion, Denies vertigo, Denies frequent falls, Reports headache(s), Denies localized weakness, Denies numbness, Denies sensory deficit and Denies weakness Psychiatric Psychiatric: Denies behavioral changes and Denies confusion Endocrine Endocrine: Reports fatigue PFSH All Active Problems (Updated 02/22/22 @ 00:06 by ASHOK Garcia) Headache (Acute) Anemia (Chronic) Leukopenia (Acute) Left eye pain (Acute) Closed left ankle fracture (Acute 04/07/21) Myasthenia gravis with exacerbation (Acute) Headache (Acute) Myasthenic crisis (Acute) Shortness of breath (Acute) Upper back pain (Acute) Carpal tunnel syndrome on left (Acute) Anemia (Chronic) Carpal tunnel syndrome on right (Acute) s/p right ECTR DOS: 02/19/20 Dr. 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 current use of azathioprine Incompetent cervix Irregular menses (01/12/14) Polysubstance (including opioids) dependence with physiol dependence On Suboxone, pt states she has been tapering off this medication Surgical History History of thymectomy Hx of breast implants, bilateral S/P dilatation and curettage S/P tubal ligation Social History Smoking/Tobacco Use Status: Former Tobacco Use Tobacco: How many years used: 20 Quit status: not considering quitting Smoking risk assessment performed?: Yes Alcohol Intake: never Drug use: Occasionally Substance use type: former substance user and marijuana Details: Occ. Pot Number of Children: 2 current occupation: Unemployed Current gender identity: female Do you feel safe at home: Yes Do you feel safe in your relationship?: Yes Female Reproductive History Menstrual control method: permanent sterilization History History 4 Para 2 Hx # Term Pregnancies Multiple births Hx # Pregnancies Ectopic pregnancies AB induced Hx Number of Living Children AB spontaneous Exam Const General: cooperative, healthy appearing, comfortable, no acute distress, well developed and well groomed Nutritional Appearance: average body habitus and well nourished Orientation: alert, awake and oriented x3 HENMT Head: normal to inspection, no palpable skull fracture, normocephalic and atraumatic Ears: hearing grossly normal bilaterally, external ears normal and TM's normal bilaterally General nose exam: external nose normal Mouth: oral mucosae normal and moist mucous membranes Throat: posterior oropharynx normal Eyes Alignment and Position: alignment normal Periorbital: periorbital findings normal Eyelids: eyelid abnormality left upper eyelid (droop) Sclera: sclerae normal Cornea: corneas normal Pupils: PERRL EOM: EOM intact bilaterally Neck Neck: normal visual inspection, full ROM, no lymphadenopathy and no meningeal signs Resp Effort & Inspection: normal respiratory effort, able to speak in complete sentences and no respiratory distress Auscultation: clear to auscultation bilaterally, no rales, no rhonchi and no wheezes Cardio Rate: regular rate Rhythm: regular rhythm Heart Sounds: S1 normal and S2 normal GI Inspection: normal to inspection and non-distended Palpation: soft, no hepatosplenomegaly, not firm, no guarding, not rigid and nontender Percussion: normal to percussion Auscultation: normal bowel sounds Back/Spine/Pelvis Cervical Spine: normal cervical lordosis and cervical ROM normal Skin General skin exam: no rashes or lesions noted Neuro General: patient alert, patient awake and patient oriented x3 Cranial Nerves: PERRL, accommodation normal, EOM intact bilaterally, no nystagmus, facial strength normal (droop left upper lid but strength intact with testing), tongue midline, hearing normal, able to rotate head bilaterally and able to elevate shoulders bilaterally Cognition: normal cognition Speech: speech normal Gait: normal gait Motor: muscle tone normal throughout, strength 5/5 throughout, no pronator drift, no movement abnormalities noted and no fasciculations Sensory Exam: no sensory deficits noted Coordination: vqgogv-ks-pykb test normal and iwdv-vi-xvta test normal Extrem General: normal to inspection, capillary refill normal, no pedal edema and no calf tenderness Psych Appearance: grossly normal and well kempt Mental Status: mental status grossly normal Speech and Movement: speech and movement normal Course Vital Signs Vital signs: Vital Signs Temperature 36.6 C 02/21/22 20:53 Pulse 67 02/21/22 20:53 Respiratory Rate 16 02/21/22 20:53 Blood Pressure 107/71 02/21/22 20:53 Pulse Oximetry 99 02/21/22 20:53 Temperature 36.6 C 02/21/22 20:53 Temperature Source Tympanic 02/21/22 20:53 Pulse 67 02/21/22 20:53 Respiratory Rate 16 02/21/22 20:53 Respiratory Effort 02/21/22 20:53 Blood Pressure 107/71 02/21/22 20:53 Blood Pressure Position Sitting 02/21/22 20:53 Pulse Oximetry 99 02/21/22 20:53 Oxygen Delivery Method Room Air 02/21/22 20:53 Oxygen Flow Rate 0 02/21/22 20:53 Pain Level 8 02/21/22 20:53 Lab/Test Results Lab/Test Results: Laboratory Tests Range/Units 02/21/22 02/21/22 02/21/22 21:57 21:57 21:57 WBC Cancelled RBC Cancelled Hgb Cancelled Hct Cancelled MCV Cancelled MCH Cancelled MCHC Cancelled RDW Cancelled Plt Count Cancelled MPV Cancelled Immature Gran % Cancelled Neutrophils % Cancelled Band Neutrophils % Cancelled Lymphocytes % Cancelled Atypical Lymphs % Cancelled Monocytes % Cancelled Eosinophils % Cancelled Basophils % Cancelled Metamyelocytes % Cancelled Myelocytes % Cancelled Promyelocytes % Cancelled Other Cells % Cancelled Nucleated RBC % Cancelled Absolute Neutrophils Cancelled Absolute Lymphocytes Cancelled Absolute Monocytes Cancelled Absolute Eosinophils Cancelled Absolute Basophils Cancelled RBC Morphology Cancelled Polychromasia Cancelled Hypochromasia Cancelled Poikilocytosis Cancelled Basophilic Stippling Cancelled Anisocytosis Cancelled Microcytosis Cancelled Macrocytosis Cancelled Spherocytes Cancelled Tear Drop Cells Cancelled Ovalocytes Cancelled Stomatocytes Cancelled [place] Bodies Cancelled [place] Cells/Echinocytes Cancelled Acanthocytes (Spur) Cancelled Schistocytes Cancelled Sodium (136-145) mmol/L 138 Potassium (3.5-5.1) mmol/L 3.8 Chloride (98-107) mmol/L 103 Carbon Dioxide (21.0-32.0) mmol/L 28.9 Anion Gap (3-11) mmol/L 6.1 BUN (7-18) mg/dL 10 Creatinine (0.55-1.02) mg/dL 0.7 Est GFR (CKD-EPI 2020) (mL/min/1.73m2) 111.36 Glucose (74-106) mg/dL 89 Calcium (8.5-10.1) mg/dL 8.5 Total Bilirubin (0.2-1.0) mg/dL 0.5 AST (15-37) U/L 19 ALT (14-59) U/L 10 L Alkaline Phosphatase (46-116) U/L 63 Total Protein (6.4-8.2) g/dL 8.0 Albumin (3.4-5.0) g/dL 3.4 TSH (0.36-3.74) uIU/mL COVID-19 Source Nasopharynx SARS-CoV-2 (PCR) (Negative) Negative Influenza Type A (PCR) (Negative) Negative Influenza Type B (PCR) (Negative) Negative RSV (PCR) (Negative) Negative Range/Units 02/21/22 02/21/22 21:57 22:28 WBC 3.36 L RBC 2.61 L Hgb 9.1 L Hct 27.0 L MCV 103 H MCH 34.9 H MCHC 33.7 RDW 13.5 Plt Count 187 MPV 10.8 Immature Gran % 0.3 Neutrophils % 41.9 Band Neutrophils % Lymphocytes % 40.8 Atypical Lymphs % Monocytes % 15.2 Eosinophils % 0.9 Basophils % 0.9 Metamyelocytes % Myelocytes % Promyelocytes % Other Cells % Nucleated RBC % 0.0 Absolute Neutrophils 1.41 Absolute Lymphocytes 1.37 Absolute Monocytes 0.51 Absolute Eosinophils 0.03 Absolute Basophils 0.03 RBC Morphology Polychromasia Hypochromasia Poikilocytosis Basophilic Stippling Anisocytosis Microcytosis Macrocytosis Spherocytes Tear Drop Cells Ovalocytes Stomatocytes [place] Bodies [place] Cells/Echinocytes Acanthocytes (Spur) Schistocytes Sodium (136-145) mmol/L Potassium (3.5-5.1) mmol/L Chloride (98-107) mmol/L Carbon Dioxide (21.0-32.0) mmol/L Anion Gap (3-11) mmol/L BUN (7-18) mg/dL Creatinine (0.55-1.02) mg/dL Est GFR (CKD-EPI 2020) (mL/min/1.73m2) Glucose (74-106) mg/dL Calcium (8.5-10.1) mg/dL Total Bilirubin (0.2-1.0) mg/dL AST (15-37) U/L ALT (14-59) U/L Alkaline Phosphatase (46-116) U/L Total Protein (6.4-8.2) g/dL Albumin (3.4-5.0) g/dL TSH (0.36-3.74) uIU/mL 0.59 COVID-19 Source SARS-CoV-2 (PCR) (Negative) Influenza Type A (PCR) (Negative) Influenza Type B (PCR) (Negative) RSV (PCR) (Negative) POC- Test(urine) Negative
[2022-02-22 00:20] VITALS: BP 102/68; PULSE 67; RESP 16; TEMP 36.6; O2SAT 99
== END 2022-02-22 00:21 | disposition home or self-care (01) ==
PROVIDERS: Emergency Provider Physician Assistant; PCP Physician Assistant
DX: R51.9 Headache, unspecified (principal); D64.9 Anemia, unspecified; D72.819 Decreased white blood cell count, unspecified; H02.402 Unspecified ptosis of left eyelid; Z20.822 Contact with and (suspected) exposure to COVID-19; Z98.51 Tubal ligation status
CPT/HCPCS: 80053; 81025; 87637; 96361; 96374; 96375; 99284; 70450; 84443; 85025

== ENCOUNTER 2022-02-27 01:12 | Outpatient (RCR) | payer MEDICAID, SELFPAY ==
[2022-02-19 00:16] VITALS: BP 100/66; PULSE 60; RESP 18; TEMP 36.7
[2022-02-27] VITALS (7 sets, daily range): BP systolic 113–129; BP diastolic 72–85; PULSE 63–78; RESP 16–17; TEMP 35.5–36.2; O2SAT 98–100
[2022-02-27] MEDS: Acetaminophen 500 MG TAB 1000 MG PO (11:18)
[2022-02-27] MEDS: Normal Saline Flush 10 ML SYR IVP (11:18)
[2022-02-27] MEDS: Cetirizine 10 MG TAB PO (11:18)
[2022-02-27] MEDS: diphenhydrAMINE 25 MG CAP PO (11:18)
[2022-02-27] MEDS: IMMUNE GLOBULIN 40 GM/400 ML BTL IVPB ×2 (11:21→13:29)
[2022-02-27 11:33] LABS: CREATININE 0.8 mg/dL (0.55-1.02); Estimated GFR 94.87 (mL/min/1.73m2)
== END 2022-03-21 23:59 | disposition home or self-care (01) ==
LOC: INF 01:12
PROVIDERS: PCP Physician Assistant; Visit Provider Psychiatry & Neurology Neurology
DX: G70.01 Myasthenia gravis with (acute) exacerbation (principal)
CPT/HCPCS: 96365; 96366; 82565; J1459

== ENCOUNTER 2022-03-27 02:16 | Outpatient (RCR) | payer MEDICAID, SELFPAY ==
[2022-03-22 00:09] VITALS: BP 129/85; PULSE 73; RESP 17; TEMP 35.5
[2022-03-27] MEDS: Cetirizine 10 MG TAB PO (11:21)
[2022-03-27] MEDS: Acetaminophen 500 MG TAB PO (11:21)
[2022-03-27] MEDS: diphenhydrAMINE 25 MG CAP PO (11:21)
[2022-03-27] MEDS: Normal Saline Flush 10 ML SYR IVP (11:23)
[2022-03-27 11:25] VITALS: BP 116/78; PULSE 92; RESP 18; TEMP 35.8; O2SAT 98
[2022-03-27] MEDS: IMMUNE GLOBULIN 40 GM/400 ML BTL IVPB ×2 (11:26→13:36)
[2022-03-27 11:33] LABS: CREATININE 0.7 mg/dL (0.55-1.02); Estimated GFR 111.36 (mL/min/1.73m2)
[2022-03-27 11:45] VITALS: BP 114/77; PULSE 77; RESP 17; TEMP 35.9; O2SAT 99
[2022-03-27 12:00] VITALS: BP 107/73; PULSE 79; RESP 17; TEMP 36.2; O2SAT 99
[2022-03-27 12:30] VITALS: BP 116/74; PULSE 85; RESP 17; TEMP 36.1; O2SAT 99
[2022-03-27 13:00] VITALS: BP 112/67; PULSE 91; RESP 17; TEMP 35.8; O2SAT 99
[2022-03-27 13:30] VITALS: BP 113/61; PULSE 91; RESP 17; TEMP 35.5; O2SAT 98
== END 2022-04-21 23:59 | disposition home or self-care (01) ==
LOC: INF 02:16
PROVIDERS: PCP Physician Assistant; Visit Provider Psychiatry & Neurology Neurology
DX: G70.01 Myasthenia gravis with (acute) exacerbation (principal)
CPT/HCPCS: 36415; 96365; 96366; 82565; J1459

== ENCOUNTER 2022-04-08 01:48 | Outpatient (CLI) | payer MEDICAID, SELFPAY ==
[2022-04-08] MEDS: Normal Saline - Diluent 50 ML VIAL IJ (15:09)
[2022-04-08] MEDS: Omnipaque 350 MG/ML 500 ML BTL-Imaging package 70 ML IJ (15:15)
--- NOTE | 2022-04-08 15:15 | DI.CT_ITS ---
Exam(s) CT CHEST W EXAM: CT CHEST W CLINICAL HISTORY: S/P THYMECTOMY,MYASTHENIA GRAVIS WITH EXAC. TECHNIQUE: Multi planar reconstructions were performed. CONTRAST MATERIAL: Omnipaque 350; 75 cc COMPARISON: CT CT CHEST PE CTA from 01/15/2021 FINDINGS: CHEST: LUNGS: No infiltrates nor pleural effusions. No pulmonary nodules. MEDIASTINUM: There is no hilar nor mediastinal adenopathy. No subcarinal adenopathy. No supraclavic ular adenopathy. No axillary adenopathy. No evidence of mediastinal mass such as thymoma, given the history here. CARDIAC: Heart size is normal. There is no pericardial effusion.Caliber of the thoracic aorta is wit hin normal limits. VISUALIZED UPPER ABDOMEN:There are no significant adrenal masses. Spleen size normal. Cholelithiasi s. OTHER: Bilateral breast implants again noted. The right breast implant appears ruptured; left implan t appears intact. OSSEOUS: No significant osseous lesions.. IMPRESSION: 1. No evidence of mediastinal mass, given the history here. 2. No other significant intrathoracic findings. No pulmonary findings and no pleural effusions. 3. Breast implants. Right breast implant appears ruptured. 4. Small calcified gallstone noted. RADIATION DOSE DELIVERED: 508.29mGy.cm Total DLP DATA REPOSITORY: All CT scans at this facility are submitted to the National Radiology Data Registry (NRDR) Dose Index Registry (DIR) with the [employer] (A[employer]). RADIATION OPTIMIZATION: All CT scans at this facility use at least one of these dose optimization te chniques: automated exposure control; mA and/or kV adjustment per patient size (includes targeted exa ms where dose is matched to clinical indication); or iterative reconstruction.
[2022-04-08] MEDS: Normal Saline Flush 10 ML SYR IVP (15:16)
== END 2022-04-08 02:08 ==
LOC: DI 01:48
PROVIDERS: PCP Physician Assistant; Visit Provider Psychiatry & Neurology Neurology
DX: G70.01 Myasthenia gravis with (acute) exacerbation (principal); K80.20 Calculus of gallbladder without cholecystitis without obstruction; Z98.82 Breast implant status
CPT/HCPCS: 71260

== ENCOUNTER 2022-04-24 00:40 | Outpatient (RCR) | payer MEDICAID, SELFPAY ==
[2022-04-22 00:14] VITALS: BP 113/61; PULSE 91; RESP 17; TEMP 35.5
[2022-04-24] VITALS (8 sets, daily range): BP systolic 98–121; BP diastolic 66–81; PULSE 67–98; RESP 16–20; TEMP 35.5–36.6; O2SAT 97–99
[2022-04-24] MEDS: diphenhydrAMINE 25 MG CAP PO (12:39)
[2022-04-24] MEDS: Cetirizine 10 MG TAB PO (12:39)
[2022-04-24] MEDS: Acetaminophen 500 MG TAB 1000 MG PO (12:40)
[2022-04-24] MEDS: IMMUNE GLOBULIN 40 GM/400 ML BTL IVPB ×2 (12:51→14:50)
[2022-04-24 13:14] LABS: CREATININE 0.8 mg/dL (0.55-1.02); Estimated GFR 94.87 (mL/min/1.73m2)
[2022-04-24] MEDS: Normal Saline Flush 10 ML SYR IVP (14:54)
== END 2022-05-19 23:59 | disposition home or self-care (01) ==
LOC: INF 00:40
PROVIDERS: PCP Physician Assistant; Visit Provider Psychiatry & Neurology Neurology
DX: G70.00 Myasthenia gravis without (acute) exacerbation (principal)
CPT/HCPCS: 36415; 96365; 96366; 82565; J1459

== ENCOUNTER 2022-06-19 01:19 | Outpatient (RCR) | payer MEDICAID, SELFPAY ==
[2022-05-20 00:14] VITALS: BP 112/75; PULSE 69; RESP 20; TEMP 35.8
[2022-05-22] VITALS (7 sets, daily range): BP systolic 96–109; BP diastolic 58–73; PULSE 54–79; RESP 16–18; TEMP 35–36.9; O2SAT 99–100
[2022-05-22] MEDS: Acetaminophen 500 MG TAB (11:16)
[2022-05-22] MEDS: Normal Saline Flush 10 ML SYR IVP (11:16)
[2022-05-22] MEDS: diphenhydrAMINE 25 MG CAP (11:16)
[2022-05-22] MEDS: Cetirizine 10 MG TAB (11:16)
[2022-05-22] MEDS: IMMUNE GLOBULIN 40 GM/400 ML BTL IVPB ×2 (11:31→13:39)
[2022-05-22 11:38] LABS: HCT 31.5 % (36.0-46.0); HGB 11.1 g/dL (11.2-15.7); MCH 35.2 pg (27.0-33.0); MCHC 35.2 % (32.0-36.0); MCV 100 fL (80-95); MPV 10.9 fL (8.0-11.0); Platelet Count 242 10^3/uL (130-400); RBC 3.15 10^6/uL (3.93-5.22); RDW 12.6 % (11.7-14.6); RDW-SD 44.6 fL; WBC 4.21 10^3/uL (4.4-10.8)
[2022-05-22 12:11] LABS: ALT 12 U/L (14-59); AST 14 U/L (15-37); Albumin 3.3 g/dL (3.4-5.0); Alkaline Phosphatase 75 U/L (46-116); Anion Gap 8.9 mmol/L (3-11); BUN 8 mg/dL (7-18); Bilirubin, Total 0.2 mg/dL (0.2-1.0); CO2 27.1 mmol/L (21.0-32.0); CREATININE 0.7 mg/dL (0.55-1.02); Calcium 8.5 mg/dL (8.5-10.1); Chloride 103 mmol/L (98-107); Estimated GFR 111.36 (mL/min/1.73m2); Glucose 91 mg/dL (74-106); Potassium 3.8 mmol/L (3.5-5.1); Sodium 139 mmol/L (136-145); Total Protein 7.5 g/dL (6.4-8.2)
[2022-06-19] VITALS (8 sets, daily range): BP systolic 114–127; BP diastolic 67–84; PULSE 63–81; RESP 16–18; TEMP 36–36.5; O2SAT 97–99
[2022-06-19] MEDS: Acetaminophen 500 MG TAB 1000 MG PO (11:50)
[2022-06-19] MEDS: diphenhydrAMINE 25 MG CAP PO (11:50)
[2022-06-19] MEDS: Cetirizine 10 MG TAB PO (11:50)
[2022-06-19] MEDS: Normal Saline Flush 10 ML SYR IVP (12:05)
[2022-06-19] MEDS: IMMUNE GLOBULIN 40 GM/400 ML BTL IVPB ×2 (12:06→14:06)
[2022-06-19 12:37] LABS: HCT 32.9 % (36.0-46.0); HGB 11.2 g/dL (11.2-15.7); MCH 32.8 pg (27.0-33.0); MCV 97 fL (80-95); MPV 10.9 fL (8.0-11.0); Platelet Count 250 10^3/uL (130-400); RBC 3.41 10^6/uL (3.93-5.22); RDW 13.3 % (11.7-14.6); RDW-SD 45.9 fL; WBC 5.08 10^3/uL (4.4-10.8)
[2022-06-19 12:53] LABS: ALT 15 U/L (14-59); AST 24 U/L (15-37); Albumin 3.7 g/dL (3.4-5.0); Alkaline Phosphatase 87 U/L (46-116); Anion Gap 9.2 mmol/L (3-11); BUN 10 mg/dL (7-18); Bilirubin, Total 0.6 mg/dL (0.2-1.0); CO2 25.8 mmol/L (21.0-32.0); CREATININE 0.8 mg/dL (0.55-1.02); Calcium 8.9 mg/dL (8.5-10.1); Chloride 101 mmol/L (98-107); Estimated GFR 94.87 (mL/min/1.73m2); Glucose 87 mg/dL (74-106); Potassium 3.4 mmol/L (3.5-5.1); Sodium 136 mmol/L (136-145); Total Protein 8.3 g/dL (6.4-8.2)
== END 2022-06-19 23:59 | disposition home or self-care (01) ==
LOC: INF 01:19
PROVIDERS: PCP Physician Assistant; Visit Provider Psychiatry & Neurology Neurology
DX: G70.01 Myasthenia gravis with (acute) exacerbation (principal)
CPT/HCPCS: 36415; 80053; 85027; 96365; 96366; J1459

== ENCOUNTER 2022-07-17 00:59 | Outpatient (RCR) | payer MEDICAID, SELFPAY ==
[2022-06-20 00:20] VITALS: BP 121/67; PULSE 76; RESP 16; TEMP 36.3
[2022-07-17] VITALS (7 sets, daily range): BP systolic 100–118; BP diastolic 62–76; PULSE 65–85; RESP 16–17; TEMP 36.5–36.9; O2SAT 98–99
[2022-07-17] MEDS: Acetaminophen 500 MG TAB 1000 MG PO (11:13)
[2022-07-17] MEDS: Cetirizine 10 MG TAB PO (11:14)
[2022-07-17] MEDS: diphenhydrAMINE 25 MG CAP PO (11:14)
[2022-07-17] MEDS: IMMUNE GLOBULIN 40 GM/400 ML BTL IVPB ×2 (11:18→13:25)
[2022-07-17 11:50] LABS: CREATININE 0.7 mg/dL (0.55-1.02); Estimated GFR 111.36 (mL/min/1.73m2)
[2022-07-17] MEDS: Normal Saline Flush 10 ML SYR IVP (14:54)
== END 2022-07-19 23:59 | disposition home or self-care (01) ==
LOC: INF 00:59
PROVIDERS: PCP Physician Assistant; Visit Provider Psychiatry & Neurology Neurology
DX: G70.00 Myasthenia gravis without (acute) exacerbation (principal)
CPT/HCPCS: 80053; 96365; 96366; 82565; J1459

== ENCOUNTER 2022-08-14 00:52 | Outpatient (RCR) | payer MEDICAID, SELFPAY ==
[2022-07-20 00:19] VITALS: BP 100/69; PULSE 78; RESP 16; TEMP 36.9
[2022-08-14] VITALS (8 sets, daily range): BP systolic 89–117; BP diastolic 53–81; PULSE 64–79; RESP 16–17; TEMP 35.8–36.7; O2SAT 98–100
[2022-08-14] MEDS: diphenhydrAMINE 25 MG CAP (11:44)
[2022-08-14] MEDS: Cetirizine 10 MG TAB (11:45)
[2022-08-14] MEDS: Normal Saline Flush 10 ML SYR IVP (11:45)
[2022-08-14] MEDS: Acetaminophen 500 MG TAB (11:45)
[2022-08-14] MEDS: IMMUNE GLOBULIN 40 GM/400 ML BTL IVPB ×2 (11:48→13:57)
[2022-08-14 11:56] LABS: CREATININE 0.8 mg/dL (0.55-1.02); Estimated GFR 94.87 (mL/min/1.73m2)
== END 2022-08-19 23:59 | disposition home or self-care (01) ==
LOC: INF 00:52
PROVIDERS: PCP Physician Assistant; Visit Provider Psychiatry & Neurology Neurology
DX: G35 Multiple sclerosis (principal)
CPT/HCPCS: 96365; 96366; 82565; J1459

== ENCOUNTER 2022-09-11 00:05 | Outpatient (RCR) | payer MEDICAID, SELFPAY ==
[2022-08-20 00:08] VITALS: BP 95/69; PULSE 79; RESP 16; TEMP 35.8
[2022-09-11] MEDS: diphenhydrAMINE 25 MG CAP PO (11:24)
[2022-09-11] MEDS: Cetirizine 10 MG TAB PO (11:24)
[2022-09-11] MEDS: Acetaminophen 500 MG TAB 1000 MG PO (11:24)
[2022-09-11] MEDS: IMMUNE GLOBULIN 40 GM/400 ML BTL IVPB ×2 (11:31→13:37)
[2022-09-11 11:34] VITALS: BP 99/63; PULSE 57; RESP 18; TEMP 37.1; O2SAT 99
[2022-09-11 11:49] LABS: Reticulocyte 1.2 % (0.5-2.4)
[2022-09-11 11:53] VITALS: BP 151/68; PULSE 58; TEMP 36.7; O2SAT 99
[2022-09-11 12:07] VITALS: BP 108/67; PULSE 63; RESP 17; TEMP 36.6; O2SAT 99
[2022-09-11 12:17] LABS: Iron 55 ug/dL (50-170); Total Iron Binding Capacity 270 ug/dL (250-450); Transferrin Sat 20 % (15-50)
[2022-09-11 12:20] LABS: CREATININE 0.7 mg/dL (0.55-1.02); Estimated GFR 111.36 (mL/min/1.73m2); Ferritin 16 ng/mL (8-252)
[2022-09-11 12:35] VITALS: BP 98/61; PULSE 72; RESP 17; TEMP 37; O2SAT 98
[2022-09-11 13:07] VITALS: BP 101/63; PULSE 60; RESP 16; TEMP 37.3; O2SAT 99
[2022-09-11 13:39] VITALS: BP 99/64; PULSE 58; RESP 16; TEMP 37; O2SAT 99
== END 2022-09-18 23:59 | disposition home or self-care (01) ==
LOC: INF 00:05
PROVIDERS: PCP Physician Assistant; Visit Provider Psychiatry & Neurology Neurology
DX: D64.9 Anemia, unspecified (principal); G35 Multiple sclerosis
CPT/HCPCS: 36415; 96365; 96366; 82565; 82728; 83540; 83550; 85045; J1459

== ENCOUNTER 2022-10-15 03:41 | Outpatient (RCR) | payer MEDICAID, SELFPAY ==
[2022-09-19 00:14] VITALS: BP 99/64; PULSE 58; RESP 16; TEMP 37
[2022-10-15] VITALS (8 sets, daily range): BP systolic 101–112; BP diastolic 64–79; PULSE 61–89; RESP 16–18; TEMP 35.4–36.8; O2SAT 96–99
[2022-10-15] MEDS: diphenhydrAMINE 25 MG CAP PO (09:51)
[2022-10-15] MEDS: Acetaminophen 500 MG TAB 1000 MG PO (09:51)
[2022-10-15] MEDS: Cetirizine 10 MG TAB PO (09:51)
[2022-10-15] MEDS: IMMUNE GLOBULIN 40 GM/400 ML BTL IVPB ×2 (09:54→12:02)
[2022-10-15] MEDS: Normal Saline Flush 10 ML SYR IVP (09:55)
[2022-10-15 10:15] LABS: CREATININE 0.9 mg/dL (0.55-1.02); Estimated GFR 82.37 (mL/min/1.73m2)
== END 2022-10-19 23:59 | disposition home or self-care (01) ==
LOC: INF 03:41
PROVIDERS: PCP Physician Assistant; Visit Provider Psychiatry & Neurology Neurology
DX: G70.01 Myasthenia gravis with (acute) exacerbation (principal)
CPT/HCPCS: 36415; 96365; 96366; 82565; J1459

== ENCOUNTER 2022-11-06 02:02 | Outpatient (RCR) | payer MEDICAID, SELFPAY ==
[2022-10-20 00:14] VITALS: BP 112/76; PULSE 63; RESP 16; TEMP 36
[2022-11-06] MEDS: Cetirizine 10 MG TAB PO (11:35)
[2022-11-06] MEDS: diphenhydrAMINE 25 MG CAP PO (11:35)
[2022-11-06] MEDS: Acetaminophen 500 MG TAB 1000 MG PO (11:35)
[2022-11-06] MEDS: Normal Saline Flush 10 ML SYR IVP (11:37)
[2022-11-06] MEDS: IMMUNE GLOBULIN 40 GM/400 ML BTL IVPB ×2 (11:55→13:58)
[2022-11-06 11:58] LABS: Abs Immature Grans 0.02 10^3/uL (0.0-0.06); Absolute Basophil Count 0.04 10^3/uL (0.0-0.2); Absolute Eosinophil Count 0.13 10^3/uL (0.0-0.7); Absolute Lymphocyte Count 1.75 10^3/uL (1.2-3.4); Absolute Monocyte Count 0.35 10^3/uL (0.1-0.8); Absolute Neutrophil Count 3.36 10^3/uL (1.2-6.7); Basophils % 0.7; Eosinophils % 2.3; HCT 38.1 % (36.0-46.0); Immature Grans % 0.4; MCH 33.8 pg (27.0-33.0); MCHC 34.1 % (32.0-36.0); MCV 99 fL (80-95); MPV 11.4 fL (8.0-11.0); Monocytes % 6.2; Neutrophils % 59.4; Platelet Count 253 10^3/uL (130-400); RBC 3.85 10^6/uL (3.93-5.22); RDW 14.4 % (11.7-14.6); RDW-SD 51.7 fL; WBC 5.65 10^3/uL (4.4-10.8)
[2022-11-06 12:00] VITALS: BP 99/61; PULSE 77; RESP 17; TEMP 35.6; O2SAT 99
[2022-11-06 12:10] LABS: ALT 13 U/L (14-59); AST 18 U/L (15-37); Albumin 3.7 g/dL (3.4-5.0); Alkaline Phosphatase 91 U/L (46-116); Anion Gap 6.5 mmol/L (3-11); BUN 8 mg/dL (7-18); Bilirubin, Total 0.2 mg/dL (0.2-1.0); CO2 29.5 mmol/L (21.0-32.0); CREATININE 0.7 mg/dL (0.55-1.02); Calcium 8.7 mg/dL (8.5-10.1); Chloride 105 mmol/L (98-107); Estimated GFR 111.36 (mL/min/1.73m2); Glucose 97 mg/dL (74-106); Potassium 3.8 mmol/L (3.5-5.1); Sodium 141 mmol/L (136-145); Total Protein 8.3 g/dL (6.4-8.2)
[2022-11-06 12:15] VITALS: BP 108/71; PULSE 77; RESP 17; TEMP 35.6; O2SAT 99
[2022-11-06 12:30] VITALS: BP 100/64; PULSE 65; RESP 16; TEMP 35.9; O2SAT 98
[2022-11-06 13:00] VITALS: BP 96/60; PULSE 66; RESP 16; TEMP 35.5; O2SAT 98
[2022-11-06 13:29] VITALS: BP 106/71; PULSE 66; RESP 16; TEMP 35.5; O2SAT 98
[2022-11-06 14:00] VITALS: BP 105/68; PULSE 63; RESP 17; TEMP 35.6; O2SAT 98
== END 2022-11-19 23:59 | disposition home or self-care (01) ==
LOC: INF 02:02
PROVIDERS: PCP Physician Assistant; Visit Provider Psychiatry & Neurology Neurology
DX: G70.00 Myasthenia gravis without (acute) exacerbation (principal)
CPT/HCPCS: 36415; 80053; 96365; 96366; 85025; J1459

== ENCOUNTER 2022-12-18 02:49 | Outpatient (RCR) | payer MEDICAID, SELFPAY ==
[2022-11-20 00:20] VITALS: BP 105/68; PULSE 63; RESP 17; TEMP 35.6
[2022-11-27] VITALS (7 sets, daily range): BP systolic 100–112; BP diastolic 63–78; PULSE 57–72; RESP 16–17; TEMP 35.7–36.5; O2SAT 95–97
[2022-11-27] MEDS: Acetaminophen 500 MG TAB 1000 MG PO (11:18)
[2022-11-27] MEDS: diphenhydrAMINE 25 MG CAP PO (11:18)
[2022-11-27] MEDS: Cetirizine 10 MG TAB PO (11:18)
[2022-11-27] MEDS: Normal Saline Flush 10 ML SYR IVP (11:19)
[2022-11-27] MEDS: IMMUNE GLOBULIN 40 GM/400 ML BTL IVPB ×2 (11:30→13:26)
[2022-11-27 12:07] LABS: CREATININE 0.8 mg/dL (0.55-1.02); Estimated GFR 94.87 (mL/min/1.73m2); Folate 14.9 ng/mL (8.6-20.0); Vitamin B12 389 pg/mL (193-986)
[2022-12-18] VITALS (8 sets, daily range): BP systolic 102–114; BP diastolic 61–73; PULSE 56–80; RESP 16–17; TEMP 34.9–36.7; O2SAT 98–100
[2022-12-18] MEDS: diphenhydrAMINE 25 MG CAP PO (11:03)
[2022-12-18] MEDS: Cetirizine 10 MG TAB PO (11:03)
[2022-12-18] MEDS: Acetaminophen 500 MG TAB 1000 MG PO (11:03)
[2022-12-18] MEDS: Normal Saline Flush 10 ML SYR IVP (11:03)
[2022-12-18] MEDS: IMMUNE GLOBULIN 40 GM/400 ML BTL IVPB ×2 (11:19→13:24)
[2022-12-18 12:01] LABS: CREATININE 0.8 mg/dL (0.55-1.02); Estimated GFR 94.87 (mL/min/1.73m2)
== END 2022-12-19 23:59 | disposition home or self-care (01) ==
LOC: INF 02:49
PROVIDERS: PCP Physician Assistant; Visit Provider Psychiatry & Neurology Neurology
DX: G70.01 Myasthenia gravis with (acute) exacerbation (principal)
CPT/HCPCS: 36415; 96365; 96366; 82565; 82607; 82746; J1459

== ENCOUNTER 2023-01-29 03:54 | Outpatient (RCR) | payer MEDICAID, SELFPAY ==
[2023-01-20 00:09] VITALS: BP 114/73; PULSE 70; RESP 17; TEMP 36.1
[2023-01-29] VITALS (7 sets, daily range): BP systolic 103–123; BP diastolic 66–82; PULSE 68–76; RESP 16–17; TEMP 36.3–37.2; O2SAT 98–100
[2023-01-29] MEDS: diphenhydrAMINE 25 MG CAP (11:56)
[2023-01-29] MEDS: Acetaminophen 500 MG TAB (11:57)
[2023-01-29] MEDS: Cetirizine 10 MG TAB PO (11:58)
[2023-01-29] MEDS: IMMUNE GLOBULIN 40 GM/400 ML BTL IVPB ×2 (12:10→14:09)
[2023-01-29] MEDS: Normal Saline Flush 10 ML SYR IVP (12:13)
[2023-01-29 12:30] LABS: CREATININE 0.8 mg/dL (0.55-1.02); Estimated GFR 94.28 (mL/min/1.73m2)
== END 2023-02-18 23:59 | disposition home or self-care (01) ==
LOC: INF 03:54
PROVIDERS: PCP Physician Assistant; Visit Provider Psychiatry & Neurology Neurology
DX: G70.01 Myasthenia gravis with (acute) exacerbation (principal)
CPT/HCPCS: 36415; 96365; 96366; 82565; J1459

== ENCOUNTER 2023-03-08 08:28 | Outpatient (CLI) | payer MEDICAID, SELFPAY ==
--- NOTE | 2023-03-08 08:45 | RT.EKG_ITS ---
APPROVED REPORT Exam: Resting ECG Reason for Exam: PROLONGED QT Patient Location: O HR:79 bpm ECG Measurements Heart Rate 79 AXIS CO 152 P 50 QRSd 98 QRS 27 QT 424 T 17 QTc 487 Conclusion Sinus rhythm...normal P axis, V-rate 50- 99 Borderline prolonged QT interval...QTc >485mS I have reviewed and interpreted ECG and agree with software generated interpretation.
== END 2023-03-08 08:29 | disposition home or self-care (01) ==
PROVIDERS: PCP Physician Assistant; Visit Provider Psychiatry & Neurology Neurology
DX: I45.81 Long QT syndrome (principal)
CPT/HCPCS: 93005; 93010

== ENCOUNTER 2023-04-14 02:10 | Outpatient (RCR) | payer MEDICAID, SELFPAY ==
[2023-03-22 00:04] VITALS: BP 114/73; PULSE 70; RESP 17; TEMP 36.1
[2023-03-23] VITALS (7 sets, daily range): BP systolic 115–128; BP diastolic 79–88; PULSE 69–91; RESP 14–17; TEMP 36–36.7; O2SAT 99–100
[2023-03-23] MEDS: Acetaminophen 500 MG TAB 1000 MG PO (10:38)
[2023-03-23] MEDS: Cetirizine 10 MG TAB PO (10:38)
[2023-03-23] MEDS: diphenhydrAMINE 25 MG CAP 50 MG PO (10:38)
[2023-03-23] MEDS: IMMUNE GLOBULIN 40 GM/400 ML BTL IVPB ×2 (10:56→12:46)
[2023-03-23] MEDS: Normal Saline Flush 10 ML SYR IVP (10:57)
[2023-03-23 11:29] LABS: CREATININE 0.7 mg/dL (0.55-1.02); Estimated GFR 110.67 (mL/min/1.73m2)
[2023-04-14] VITALS (8 sets, daily range): BP systolic 102–125; BP diastolic 54–82; PULSE 51–66; RESP 16–18; TEMP 36.2–36.7; O2SAT 96–100
[2023-04-14] MEDS: diphenhydrAMINE 25 MG CAP 50 MG PO (10:27)
[2023-04-14] MEDS: IMMUNE GLOBULIN 40 GM/400 ML BTL IVPB ×2 (10:32→12:38)
[2023-04-14 11:42] LABS: CREATININE 0.7 mg/dL (0.55-1.02); Estimated GFR 110.67 (mL/min/1.73m2)
[2023-04-14] MEDS: Normal Saline Flush 10 ML SYR IVP (12:38)
== END 2023-04-21 23:59 | disposition home or self-care (01) ==
LOC: INF 02:10
PROVIDERS: PCP Physician Assistant; Visit Provider Psychiatry & Neurology Neurology
DX: G70.00 Myasthenia gravis without (acute) exacerbation (principal)
CPT/HCPCS: 36415; 36591; 96365; 96366; 82565; J1459

== ENCOUNTER 2023-05-28 01:08 | Outpatient (RCR) | payer MEDICAID, SELFPAY ==
[2023-05-21 00:16] VITALS: BP 114/73; PULSE 70; RESP 17; TEMP 36.1
[2023-05-28] VITALS (10 sets, daily range): BP systolic 108–135; BP diastolic 71–89; PULSE 60–78; RESP 16–18; TEMP 36.1–37.2; O2SAT 97–100
[2023-05-28] MEDS: diphenhydrAMINE 25 MG CAP 50 MG PO (11:26)
[2023-05-28] MEDS: Cetirizine 10 MG TAB PO (11:27)
[2023-05-28] MEDS: Acetaminophen 500 MG TAB 1000 MG PO (11:27)
[2023-05-28] MEDS: IMMUNE GLOBULIN 40 GM/400 ML BTL IVPB ×2 (11:35→14:05)
[2023-05-28 11:57] LABS: Abs Immature Grans 0.01 10^3/uL (0.0-0.06); Absolute Basophil Count 0.04 10^3/uL (0.0-0.2); Absolute Eosinophil Count 0.04 10^3/uL (0.0-0.7); Absolute Lymphocyte Count 1.44 10^3/uL (1.2-3.4); Absolute Monocyte Count 0.33 10^3/uL (0.1-0.8); Absolute Neutrophil Count 3.95 10^3/uL (1.2-6.7); Basophils % 0.7; Eosinophils % 0.7; HCT 32.2 % (36.0-46.0); HGB 10.6 g/dL (11.2-15.7); Immature Grans % 0.2; Lymphocytes % 24.8; MCH 28.5 pg (27.0-33.0); MCHC 32.9 % (32.0-36.0); MCV 87 fL (80-95); Monocytes % 5.7; Neutrophils % 67.9; Platelet Count 202 10^3/uL (130-400); RBC 3.72 10^6/uL (3.93-5.22); RDW 14.7 % (11.7-14.6); RDW-SD 46.7 fL; WBC 5.81 10^3/uL (4.4-10.8)
[2023-05-28 12:12] LABS: ALT 12 U/L (14-59); AST 14 U/L (15-37); Albumin 3.6 g/dL (3.4-5.0); Alkaline Phosphatase 70 U/L (46-116); Anion Gap 11.4 mmol/L (3-11); BUN 10 mg/dL (7-18); Bilirubin, Total 0.4 mg/dL (0.2-1.0); CO2 25.6 mmol/L (21.0-32.0); CREATININE 0.8 mg/dL (0.55-1.02); Calcium 8.7 mg/dL (8.5-10.1); Chloride 104 mmol/L (98-107); Estimated GFR 94.28 (mL/min/1.73m2); Glucose 91 mg/dL (74-106); Potassium 3.2 mmol/L (3.5-5.1); Sodium 141 mmol/L (136-145); Total Protein 7.7 g/dL (6.4-8.2)
[2023-05-28] MEDS: Normal Saline Flush 10 ML SYR IVP (15:56)
== END 2023-06-20 23:59 | disposition home or self-care (01) ==
LOC: INF 01:08
PROVIDERS: PCP Physician Assistant; Visit Provider Psychiatry & Neurology Neurology
DX: G70.00 Myasthenia gravis without (acute) exacerbation (principal)
CPT/HCPCS: 36415; 80053; 96365; 96366; 85025; J1459

== ENCOUNTER 2023-06-07 14:19 | Outpatient (REF) | payer MEDICAID, SELFPAY ==
[2023-06-07 19:24] LABS: Iron 42 ug/dL (50-170); Total Iron Binding Capacity 232 ug/dL (250-450); Transferrin Sat 18 % (15-50)
[2023-06-07 20:04] LABS: Ferritin 53 ng/mL (8-252)
== END 2023-06-07 14:20 | disposition home or self-care (01) ==
LOC: NCHCN 14:19
PROVIDERS: PCP Physician Assistant; Visit Provider Physician Assistant
DX: G35 Multiple sclerosis (principal); G61.81 Chronic inflammatory demyelinating polyneuritis; D50.9 Iron deficiency anemia, unspecified
CPT/HCPCS: 82728; 83540; 83550

== ENCOUNTER 2023-07-16 00:43 | Outpatient (RCR) | payer MEDICAID, SELFPAY ==
[2023-06-21 00:18] VITALS: BP 114/73; PULSE 70; RESP 17; TEMP 36.1
[2023-06-25] VITALS (7 sets, daily range): BP systolic 117–138; BP diastolic 62–91; PULSE 74–89; RESP 16–17; TEMP 36–36.6; O2SAT 97–100
[2023-06-25] MEDS: Cetirizine 10 MG TAB PO (11:17)
[2023-06-25] MEDS: Acetaminophen 500 MG TAB 1000 MG PO (11:17)
[2023-06-25] MEDS: diphenhydrAMINE 25 MG CAP 50 MG PO (11:17)
[2023-06-25] MEDS: Normal Saline Flush 10 ML SYR IVP (11:18)
[2023-06-25] MEDS: IMMUNE GLOBULIN 20 GM/200 ML BTL IVPB (11:24)
[2023-06-25 12:54] LABS: CREATININE 0.8 mg/dL (0.55-1.02); Estimated GFR 94.28 (mL/min/1.73m2)
[2023-06-25] MEDS: IMMUNE GLOBULIN 40 GM/400 ML BTL IVPB (13:13)
== END 2023-07-20 23:59 | disposition home or self-care (01) ==
LOC: INF 00:43
PROVIDERS: PCP Physician Assistant; Visit Provider Psychiatry & Neurology Neurology
DX: G70.00 Myasthenia gravis without (acute) exacerbation (principal); D64.9 Anemia, unspecified
CPT/HCPCS: 36415; 96365; 96366; 82565; J1459

== ENCOUNTER → 2023-08-20 00:20 | Outpatient (CLI) | payer MEDICAID, SELFPAY ==
[2023-08-20] MEDS: Omnipaque 350 MG/ML 500 ML BTL-Imaging package 70 ML IJ (15:06)
--- NOTE | 2023-08-20 15:10 | DI.CT_ITS ---
Exam(s) CT CHEST W EXAM: CT CHEST W CLINICAL HISTORY: monitor for recurrent thymoma, myasthenia gravis, G70.00, D15.0 TECHNIQUE: Imaging Protocol: Axial computed tomography images with coronal and sagittal reformatted images were created and reviewed CONTRAST MATERIAL: Intravenous: Omnipaque 350 Contrast volume:70 ml. COMPARISON: CT CT CHEST W from 04/08/2022 FINDINGS: Pulmonary parenchyma: No consolidation. No dominant measurable mass. Tracheobronchial tree: No bronchiectasis or mucous plugging. Mediastinum and Leila: No dominant adenopathy or fluid collection. No evidence of thymoma. Pleura: No effusion. No pneumothorax. Heart: The heart is not dilated. No coronary artery calcifications are seen. Aorta: Thoracic aorta non-dilated. No atherosclerotic changes. Upper abdomen: No acute findings.. Single calcified gallstone again noted. Bones: Unremarkable. No significantdegenerative changes in the spine. Soft tissues: Bilateral breast implants, unchanged in appearance. IMPRESSION: No evidence of thymoma or other acute abnormality. RADIATION DOSE DELIVERED: 399.64mGy.cm Total DLP DATA REPOSITORY: All CT scans at this facility are submitted to the National Radiology Data Registry (NRDR) Dose Index Registry (DIR) with the [employer] (ACR). RADIATION OPTIMIZATION: All CT scans at this facility use at least one of these dose optimization te chniques: automated exposure control; mA and/or kV adjustment per patient size (includes targeted exa ms where dose is matched to clinical indication); or iterative reconstruction.
== END ==
PROVIDERS: PCP Physician Assistant; Visit Provider Psychiatry & Neurology Neurology
DX: G70.00 Myasthenia gravis without (acute) exacerbation (principal); D15.0 Benign neoplasm of thymus
CPT/HCPCS: 71260

== ENCOUNTER 2023-08-20 00:38 | Outpatient (RCR) | payer MEDICAID, SELFPAY ==
[2023-07-21 00:08] VITALS: BP 114/73; PULSE 70; RESP 17; TEMP 36.1
[2023-08-20] VITALS (9 sets, daily range): BP systolic 100–147; BP diastolic 65–93; PULSE 64–88; RESP 16–17; TEMP 35.9–36.9; O2SAT 98–100
[2023-08-20] MEDS: diphenhydrAMINE 25 MG CAP 50 MG PO (10:45)
[2023-08-20] MEDS: Cetirizine 10 MG TAB PO (10:45)
[2023-08-20] MEDS: Acetaminophen 500 MG TAB 1000 MG PO (10:46)
[2023-08-20] MEDS: Normal Saline Flush 10 ML SYR IVP (10:46)
[2023-08-20] MEDS: IMMUNE GLOBULIN 20 GM/200 ML BTL IVPB (10:49)
[2023-08-20 11:22] LABS: CREATININE 0.7 mg/dL (0.55-1.02); Estimated GFR 110.67 (mL/min/1.73m2)
[2023-08-20] MEDS: IMMUNE GLOBULIN 40 GM/400 ML BTL IVPB (12:31)
== END 2023-08-20 23:59 | disposition home or self-care (01) ==
LOC: INF 00:38
PROVIDERS: PCP Physician Assistant; Visit Provider Psychiatry & Neurology Neurology
DX: G70.00 Myasthenia gravis without (acute) exacerbation (principal)
CPT/HCPCS: 36415; 96365; 96366; 82565; J1459

== ENCOUNTER 2023-09-17 01:07 | Outpatient (RCR) | payer MEDICAID, SELFPAY ==
[2023-08-21 00:20] VITALS: BP 114/73; PULSE 70; RESP 17; TEMP 36.1
[2023-09-03] MEDS: Normal Saline Flush 10 ML SYR IVP (11:58)
[2023-09-03 12:07] VITALS: BP 129/85; PULSE 62; RESP 16
[2023-09-03 12:55] VITALS: BP 128/70; PULSE 72
[2023-09-17] MEDS: RAVULIZUMAB-CWVZ 3,300 MG, Normal Saline 33 ML in EMPTY EVACUATED CONTAINER 1 EACH 95 MG IVPB (13:30)
[2023-09-17] MEDS: Normal Saline Flush 10 ML SYR IVP (13:32)
== END 2023-09-19 23:59 | disposition home or self-care (01) ==
LOC: INF 01:07
PROVIDERS: PCP Physician Assistant; Visit Provider Psychiatry & Neurology Neurology
DX: G70.00 Myasthenia gravis without (acute) exacerbation (principal)
CPT/HCPCS: 96365; J1303

== ENCOUNTER 2024-02-08 02:43 | Outpatient (RCR) | payer MEDICAID, SELFPAY ==
[2024-01-26 13:37] LABS: Abs Immature Grans 0.02 10^3/uL (0.0-0.06); Absolute Basophil Count 0.08 10^3/uL (0.0-0.2); Absolute Eosinophil Count 0.15 10^3/uL (0.0-0.7); Absolute Monocyte Count 0.53 10^3/uL (0.1-0.8); Absolute Neutrophil Count 5.05 10^3/uL (1.2-6.7); Eosinophils % 1.9 %; HCT 39.5 % (36.0-46.0); HGB 12.8 g/dL (11.2-15.7); Immature Grans % 0.3 %; Lymphocytes % 26.5 %; MCHC 32.4 % (32.0-36.0); MCV 86 fL (80-95); MPV 11.8 fL (8.0-11.0); Monocytes % 6.7 %; Neutrophils % 63.6 %; Platelet Count 253 10^3/uL (130-400); RBC 4.57 10^6/uL (3.93-5.22); RDW 14.5 % (11.7-14.6); RDW-SD 46.1 fL; WBC 7.93 10^3/uL (4.4-10.8)
[2024-01-26 13:50] LABS: ALT 13 U/L (14-59); AST 11 U/L (15-37); Albumin 3.7 g/dL (3.4-5.0); Alkaline Phosphatase 72 U/L (46-116); Anion Gap 8.4 mmol/L (3-11); BUN 10 mg/dL (7-18); Bilirubin, Total 0.34 mg/dL (0.2-1.0); CO2 27.6 mmol/L (21.0-32.0); CREATININE 0.8 mg/dL (0.55-1.02); Chloride 107 mmol/L (98-107); Glucose 79 mg/dL (74-106); Potassium 3.6 mmol/L (3.5-5.1); Sodium 143 mmol/L (136-145); Total Protein 8.1 g/dL (6.4-8.2)
[2024-01-26] MEDS: Normal Saline Flush 10 ML SYR IVP (13:55)
[2024-02-08] MEDS: RAVULIZUMAB-CWVZ 3,300 MG, Normal Saline 33 ML in EMPTY EVACUATED CONTAINER 1 EACH 95 MG IVPB (13:32)
[2024-02-08 13:42] VITALS: BP 158/104; PULSE 86; RESP 18; TEMP 36.3; O2SAT 100
[2024-02-08] MEDS: Normal Saline Flush 10 ML SYR IVP (14:17)
[2024-02-08 14:18] VITALS: BP 160/110; PULSE 85; RESP 18; TEMP 36.4; O2SAT 100
== END 2024-02-19 23:59 | disposition home or self-care (01) ==
LOC: INF 02:43
PROVIDERS: PCP Physician Assistant; Visit Provider Psychiatry & Neurology Neurology
DX: G70.00 Myasthenia gravis without (acute) exacerbation (principal)
CPT/HCPCS: 36415; 80053; 96365; 85025; J1303

== ENCOUNTER 2024-07-13 06:13 | Emergency (ER) | payer MEDICAID, SELFPAY ==
[2024-07-13 06:17] VITALS: BP 196/113; PULSE 87; RESP 18; TEMP 36.2; O2SAT 100
[2024-07-13 06:19] VITALS: BP 177/118; PULSE 84; RESP 18; O2SAT 100
--- NOTE | 2024-07-13 06:38 | ED.GENADUL_ITS ---
Discharge Plan Disposition Patient Disposition: Home Condition: Good Discharge Details Clinical Impression: Acute bacterial conjunctivitis of both eyes, Elevated IOP Primary Care Provider: Barrera Dsouza ED Provider: Shara Monahan Home Meds and New Rx's Prescriptions: Continued omeprazole 40 mg capsule,delayed release(DR/EC) 40 mg PO DAILY Qty: 90 3RF buprenorphine-naloxone [Suboxone] 8-2 mg film 2 film sublingual DAILY azathioprine 50 mg tablet 250 mg PO DAILY Qty: 450 3RF pyridostigmine bromide [Mestinon] 60 mg tablet 60 mg PO TID Qty: 270 3RF ibuprofen 200 mg capsule 200 mg PO Q6H PRN acetaminophen [Tylenol] 325 mg Tablet 650 mg PO Q4H PRN PRNQty: 0 0RF Discharge Instructions Instructions: Conjunctivitis ([facility]) ED Additional Instructions: Antibiotic eye drops in both eyes every 6 hours for the next 7 days. Call [facility] at [phone] (or the eye doctor of your choice) at 8am to schedule an appointment to be seen within the next 48 hours to followup on your visit here. At that visit discuss your eye pressure which is slightly high here today in both eyes (22 on the right, 23 on the left). Please also call your primary care doctor to schedule an appointment to followup on your blood pressure which is high here in the ED. Return to the emergency department for new or worsening symptoms including worsening vision, double vision, vision going black around the edges, worsening eye pain, or if you have any other concerns. Referrals: Barrera Dsouza [Primary Care Provider] - [facility] General Mode of arrival: ambulatory . Date/Time Provider Initiated Documentation: 07/13/24 06:15 . Limitations to Documentation: no limitations . Information obtained by: patient . HPI Narrative: 44yo F with hx myasthenia gravis presenting for eye discharge and pain. Yesterday started with stinging pain and 'gritty' feeling in her left eye, then progressed to both eyes. Has had abundant thick mucousy discharge from her eyes and eyes are tearing. Vision is blurry in both eyes but worse on the left. No pain with eye movement. No dark spots, loss of peripheral vision, loss of central vision, flashes, or floaters. No eye injuries. No significant UV exposure, no chemical exposures. Does not wear contacts or glasses. Otherwise in her usual state of health. Related Data Home Medications ?Medication ?Instructions ?Recorded ?Confirmed ibuprofen 200 mg capsule 200 mg PO Q6H PRN 04/26/19 07/13/24 acetaminophen 325 mg tablet 650 mg (2 x 325 mg) PO Q4H PRN PRN 09/03/20 07/13/24 (Tylenol) #0 tabs omeprazole 40 mg capsule,delayed 40 mg PO DAILY #90 caps 01/29/21 07/13/24 release buprenorphine 8 mg-naloxone 2 mg 2 film sublingual DAILY 02/11/21 07/13/24 sublingual film (Suboxone) azathioprine 50 mg tablet 250 mg (5 x 50 mg) PO DAILY #450 10/27/23 07/13/24 tabs pyridostigmine bromide 60 mg 60 mg PO TID #270 tabs 10/27/23 07/13/24 tablet (Mestinon) Previous Rx's ?Medication ?Instructions ?Recorded acetaminophen 325 mg tablet 650 mg (2 x 325 mg) PO Q4H PRN PRN 09/03/20 (Tylenol) #0 tabs omeprazole 40 mg capsule,delayed 40 mg PO DAILY #90 caps 01/29/21 release azathioprine 50 mg tablet 250 mg (5 x 50 mg) PO DAILY #450 10/27/23 tabs pyridostigmine bromide 60 mg 60 mg PO TID #270 tabs 10/27/23 tablet (Mestinon) Allergies Allergy/AdvReac Type Severity Reaction Status Date / Time adhesive tape Allergy Severe pealed her Verified 07/13/24 06:22 skin off when removing the tape. General Stated Complaint: EyeProblem CHRIS: 4 Review of Systems Narrative: see HPI Exam Narrative Exam Narrative: General: Alert, well appearing, well nourished, in no acute distress. Head: Normocephalic, atraumatic Neck: Trachea midline, ?Neck supple. ENT: ?MMM.? No oropharygeal lesions or exudate. Cardiac: ?No cyanosis. Well perfused. Resp: No respiratory distress. Speaking in full sentences. . Abd: ?Non-distended, Neurologic: GCS 15. ? Moves all extremities freely against gravity Detailed Eye Eye: ?PERRL ?EOM full and pain free.? Visual fernandez intact to confrontation bilaterally R: ? ? VA- 20/70 ? IOP- 22 ? ?Lids/lashes- nml ?Conjuctiva-injected ?Cornea: Clear Flr: No abrasion or ulcer, - Tita's L: ? ? VA- 20/100 ? IOP- 23 ? ?Lids/lashes- nml ?Conjuctiva-injected ?Cornea: Clear. Flr: No abrasion or ulcer, - Tita's ? Copious mucopurulent discharge Course Vital Signs Vital signs: Vital Signs Temperature 36.2 C L 07/13/24 06:17 Pulse 87 07/13/24 06:17 Respiratory Rate 18 07/13/24 06:17 Blood Pressure 196/113 H 07/13/24 06:17 Pulse Oximetry 100 07/13/24 06:17 Temperature 36.2 C L 07/13/24 06:17 Temperature Source Temporal Artery Scan 07/13/24 06:17 Pulse 84 07/13/24 06:19 Respiratory Rate 18 07/13/24 06:19 Blood Pressure 177/118 H 07/13/24 06:19 Pulse Oximetry 100 07/13/24 06:19 Oxygen Delivery Method Room Air 07/13/24 06:19 Oxygen Flow Rate 0 07/13/24 06:17 Pain Level 5 07/13/24 06:19 Medical Decision Making 44yo F with hx myasthenia gravis presenting for eye discharge, blurry vision, and stinging eye pain onset yesterday. Started on left, now bilateral though left is worse. Hypertensive on arrival, vital signs otherwise reassuring. On exam has mild bilateral conjunctival injection with significant mucopurulent discharge on the left. Decreased visual acuity bilaterally L >R . No corneal abrasion, ulceration, or dendrites. Slightly elevated IOP (R: 22 & L: 23); she reports that she has her eye pressure measured regularly d/t myasthenia and reports that usually one is normal and the other high (not sure which is which). History and exam not suggestive acute angle closure glaucoma, HSV keratitis, SJS, optic neuritis, CRAO, CRVO. Consistent with conjunctivitis, likely bacterial. Will treat with 7 days of polymyxin/tmp gtt and advised close outpatient followup with opthamology given MS and mildly elevated IOP (though I do not feel her symptoms today are consistent with glaucoma). Advised to followup [facility] PCP for hypertension. Discharged home; discharge instructions and return precautions especially the importance for re-presenting immediately for worsening symptoms including worsening vision or pain were reviewed with patient who verbalized understanding. All questions were answered and she is in full agreement with the plan. Quality:SDOH Health Related Social Needs: No Data to Display PFSH All Active Problems (Updated 07/13/24 @ 06:50 by Shara Monahan MD) Elevated IOP (Acute) Acute bacterial conjunctivitis of both eyes (Acute) Prolonged QT interval (Acute) Elevated MCV (Acute) Ruptured right breast implant (Acute) Left eye pain (Acute) Closed left ankle fracture (Acute 04/07/21) Myasthenia gravis with exacerbation (Acute) Headache (Acute) Myasthenic crisis (Acute) Shortness of breath (Acute) Upper back pain (Acute) Carpal tunnel syndrome on left (Acute) Anemia (Chronic) Carpal tunnel syndrome on right (Acute) s/p right ECTR DOS: 02/19/20 Dr. 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 Pot Number of Children: 2 current occupation: Unemployed Current gender identity: female Do you feel safe at home: Yes Do you feel safe in your relationship?: Yes Female Reproductive History Menstrual control method: permanent sterilization History History 4 Para 2 Hx # Term Pregnancies Multiple births Hx # Pregnancies Ectopic pregnancies AB induced Hx Number of Living Children AB spontaneous
[2024-07-13] MEDS: Polymyxin B/Trimethoprim Ophth Soln 10 ML BTL OU (07:11)
[2024-07-13] MEDS: Tetracaine 0.5% 4 ML BTL OP (07:11)
[2024-07-13] MEDS: Fluorescein STRIPS 100/BOX 1 MG OP (07:11)
== END 2024-07-13 07:13 | disposition home or self-care (01) ==
LOC: ER 07:18
PROVIDERS: Emergency Provider Student in an Organized Health Care Education/Training Program; PCP Physician Assistant
DX: H10.023 Other mucopurulent conjunctivitis, bilateral (principal); H40.053 Ocular hypertension, bilateral; G70.00 Myasthenia gravis without (acute) exacerbation; Z87.891 Personal history of nicotine dependence
CPT/HCPCS: 99283

== ENCOUNTER 2024-12-02 23:32 | Observation (INO) | payer MEDICAID, SELFPAY ==
[2024-12-02 23:40] VITALS: PULSE 92; RESP 18; TEMP 36.7; O2SAT 98
[2024-12-03] VITALS (82 sets, daily range): BP systolic 115–168; BP diastolic 67–116; PULSE 69–104; RESP 0–27; TEMP 36.6–37.2; O2SAT 96–100
--- NOTE | 2024-12-03 | DI.RAD_ITS ---
Exam(s) XR CHEST 2V PA LATERAL EXAM: XR CHEST 2V PA LATERAL CLINICAL HISTORY: seizure. TECHNIQUE: 2D digital imaging was performed. COMPARISON: CR,XR XR CHEST 2V PA LATERAL from 09/02/2020 FINDINGS: 2 views: Heart size is normal. The mediastinum is not widened. Lungs are clear. No infiltrates nor pleural effusions. Breast implants noted. IMPRESSION: No acute pulmonary findings. DATA REPOSITORY: RADIATION DOSE DELIVERED:
--- NOTE | 2024-12-03 00:03 | ED.GENADUL_ITS ---
Discharge Plan Disposition Patient Disposition: Admit to [facility] Condition: Serious Discharge Details Clinical Impression: Seizure Primary Care Provider: Barrera Dsouza ED Provider: Shara Monahan Home Meds and New Rx's Prescriptions: No Action omeprazole 40 mg capsule,delayed release(DR/EC) 40 mg PO DAILY Qty: 90 3RF buprenorphine-naloxone [Suboxone] 8-2 mg film 2 film sublingual DAILY azathioprine 50 mg tablet 250 mg PO DAILY Qty: 450 3RF pyridostigmine bromide [Mestinon] 60 mg tablet 60 mg PO TID Qty: 270 3RF ibuprofen 200 mg capsule 200 mg PO Q6H PRN acetaminophen [Tylenol] 325 mg Tablet 650 mg PO Q4H PRN PRNQty: 0 0RF HPI General Mode of arrival: ambulatory . Date/Time Provider Initiated Documentation: 12/02/24 23:44 . Limitations to Documentation: no limitations . Information obtained by: patient . HPI Narrative: 44yo F with hx myasthenia gravis, substance abuse, presenting with concern for seizure. History from patient. She reports that around 2pm she had a seizure- she does not remember any of this but her boyfriend told her that her whole body was shaking and she was not answering. Not sure how long this was going on for, 'maybe a few minutes'. Since then she has felt tired and generally unwell, feels 'like things don't make sense'; states that her boyfriend told her you are not acting right, we need to go the emergency department and so brought here. She has never had seizures before. No recent head injuries. No headache, nausea, or vomiting. No numbness, tingling, weakness, or vertigo. No recent illness. No fevers, chills, rash, cough, rhinnorhea, dysuria, hematuria, abdominal pain, diarrhea. No recent medication changes or exacerbations of her myasthenia. Denies any recent illicit drug use. Otherwise in her usual state of health. Related Data Home Medications ?Medication ?Instructions ?Recorded ?Confirmed ibuprofen 200 mg capsule 200 mg PO Q6H PRN 04/26/19 0 07/13/24 acetaminophen 325 mg tablet 650 mg (2 x 325 mg) PO Q4H PRN PRN 09/03/20 07/13/24 (Tylenol) #0 tabs omeprazole 40 mg capsule,delayed 40 mg PO DAILY #90 ca ps 01/29/21 07/13/24 release buprenorphine 8 mg-naloxone 2 mg 2 film sublingual XOCHITL LY 02/11/21 07/13/24 sublingual film (Suboxone) azathioprine 50 mg tablet 250 mg (5 x 50 mg) PO DAILY #450 10/27/23 07/13/24 tabs pyridostigmine bromide 60 mg 60 mg PO TID #270 tabs 07/13/24 tablet (Mestinon) Previous Rx's ?Medication ?Instructions ?Recorded acetaminophen 325 mg tablet 650 mg (2 x 325 mg) PO Q4H PRN PRN 09/03/20 (Tylenol) #0 tabs omeprazole 40 mg capsule,delayed 40 mg PO DAILY #90 ca ps 01/29/21 release azathioprine 50 mg tablet 250 mg (5 x 50 mg) PO DAILY #450 10/27/23 tabs pyridostigmine bromide 60 mg 60 mg PO TID #270 tabs tablet (Mestinon) Allergies Allergy/AdvReac Type Severity Reaction Status Date / Time adhesive tape Allergy Severe pealed her Verified 07/13/24 06:22 skin off when removing the tape. General Stated Complaint: GenMedical CHRIS: 3 Review of Systems Narrative: see HPI Exam Narrative Exam Narrative: General: Non-toxic, in no acute distress. Head: Normocephalic, atraumatic Neck: Trachea midline, ?Neck supple. ENT: ?MMM.? Cardiac: ?RRR, no murmurs appreciated Resp: No respiratory distress. CTAB. Abd: ?Soft, non-distended, nontender : ?No suprapubic tenderness. No CVA tenderness. Extremities: ?No deformities.? No peripheral edema. Neuro: ? GCS 14 (E4V5M6).? PERRL.? EOMI.? Fluent speech, no dysarthria. Motor- 5/5 strength symmetric bilateral upper and lower extremities including shoulder abductors/adductors, elbow flexors/extensors, wrist flexors/extensors, finger abductors/adductors, hipflexors/extensors, knee flexors/extensors, ankle dorsiflexors and planter flexors. Sensation- ?Intact to light touch and symmetric multiple dermatomes including upper and lower extremities Coordination- No dysmetria on finger to nose Reflexes- 2/4 achilles & patellar, no clonus Gait/station: ?Normal stance.? No truncal ataxia. Steady gait with equal normal steps CRANIAL NERVES: II: Pupils equal and reactive, III, IV, : EOM intact, no gaze preference or deviation, no nystagmus. V: normal sensation in V1, V2, and V3 segments bilaterally VII: no asymmetry, no nasolabial fold flattening VIII: normal hearing to speech IX, X: normal palatal elevation, no uvular deviation XI: 5/5 head turn and 5/5 shoulder shrug bilaterally XII: midline tongue protrusion Course Vital Signs Vital signs: Vital Signs Temperature 36.7 C 12/02/24 23:40 Pulse 92 H 12/02/24 23:40 Respiratory Rate 18 12/02/24 23:40 Pulse Oximetry 98 12/02/24 23:40 Temperature 36.7 C 12/02/24 23:40 Temperature Source Oral 12/02/24 23:40 Pulse 92 H 12/02/24 23:40 Respiratory Rate 18 12/02/24 23:40 Pulse Oximetry 98 12/02/24 23:40 Oxygen Delivery Method Room Air 12/02/24 23:40 Oxygen Flow Rate 0 12/02/24 23:40 Pain Level 0 12/02/24 23:40 Medical Decision Making 44yo F with hx myasthenia gravis, substance abuse, presenting with concern for seizure. History from patient; reports that her partner observed her whole body shaking for a few minutes at around 2pm (she does not remember this) and that she has been 'out of it' since then. Partner not at bedside during my assessment; attempted to reach him multiple times for collateral information without success. She states he told her that she 'wasn't acting right' and brought her to the ED for that reason, she also 'doesn't feel right'. Vital signs reassuring on arrival. Non-focal neurologic exam. She is somewhat slow to respond and although oriented does seem a bit confused, potentially post ictal. Will workup for first time seizure, provoking factors. No fevers, headache, neck pain to suggest meningitis or encephalitis; would not get LP at this time. On [facility] record review she also has a history of prolonged QT and v- tach in her problem list though I cannot find further information on this on review of recent ED/neurology visits or hospital admissions within the last several years. -EKG SR, appropriate intervals, no ST segment or T wave abnormalities to suggest occlusive NC. -Labs reviewed as below, CBC with mild leukocytosis (nonspecific), CMP with no actionable abnormalities, Mg normal, TSH elevated with normal T4, CK normal, e esperanza negative, preg negative, coags normal, UA contaminated (will get repeat). -Head CT independently reviewed; no ICH or mass on my view; radiology read with no acute findings. Dr. Rivas from teleneurology evaluated patient. Given that she is not currently back to baseline, recommended continued observation. If she returns to baseline would be appropriate for outpatient workup (neurology/EEG/MRI) with seizure/driving precautions. Advised against starting anticonvulsant at this time for first seizure; also considering possibility of cocaine induced seizure given UDS +. Partner subsequently returned to bedside; to me he states that patient has had multiple (4-6) episodes of tonic-clonic whole body shaking over the past 2-3 days, lasting 1-3 minutes each time, after which she has been either confused or agitated. She has had periods of being back to normal. He states she currently seems 'better than she was' but is still not acting like her usual self. I agree that she does continue to seem somewhat altered. I updated Dr. Rivas with this informtion; no change in plan or recommendations, advised against anticonvulsants at this time unless repeat seizure observed here and advised observation until back to baseline. Discussed with [facility] hospitalist Dr. Munoz; pt accepted to medicine service for observation. Awaiting orders and transfer to the floor. Medical Records Medical records reviewed: Yes I reviewed the patient's medical records. Lab Data Lab results reviewed: Yes I reviewed the patient's lab results. Labs: Laboratory Tests Range/Units 12/03/24 12/03/24 12/03/24 00:20 00:40 01:35 WBC (4.4-10.8) 10^3/uL 13.52 H RBC (3.93-5.22) 10^6/uL 4.39 Hgb (11.2-15.7) g/dL 12.4 Hct (36.0-46.0) % 38.8 MCV (80-95) fL 88 MCH (27.0-33.0) pg 28.2 MCHC (32.0-36.0) % 32.0 RDW (11.7-14.6) % 14.8 H Plt Count (130-400) 10^3/uL 267 MPV (8.0-11.0) fL 11.4 H Immature Gran % % 0.4 Neutrophils % % 78.8 Lymphocytes % % 11.8 Monocytes % % 4.7 Eosinophils % % 3.7 Basophils % % 0.6 Nucleated RBC % (0.0-0.3) % 0.0 Absolute Neutrophils (1.2-6.7) 10^3/uL 10.65 H Absolute Lymphocytes (1.2-3.4) 10^3/uL 1.60 Absolute Monocytes (0.1-0.8) 10^3/uL 0.64 Absolute Eosinophils (0.0-0.7) 10^3/uL 0.50 Absolute Basophils (0.0-0.2) 10^3/uL 0.08 PT (9.1-11.1) sec 10.3 INR (0.9-1.1) 1.0 APTT (20.6-30.2) sec 21.9 Sodium (136-145) mmol/L 141 Potassium (3.5-5.1) mmol/L 4.1 Chloride (98-107) mmol/L 104 Carbon Dioxide (21.0-32.0) mmol/L 29.1 Anion Gap (3-11) mmol/L 7.9 BUN (7-18) mg/dL 13 Creatinine (0.55-1.02) mg/dL 1.0 Est GFR (CKD-EPI 2020) (mL/min/1.73m2) 71.69 Glucose (74-106) mg/dL 116 H Calcium (8.5-10.1) mg/dL 9.0 Magnesium (1.8-2.4) mg/dL 1.8 Total Bilirubin (0.2-1.0) mg/dL 0.2 AST (15-37) U/L 15 ALT (14-59) U/L 19 Alkaline Phosphatase (46-116) U/L 73 Creatine Kinase (26-192) U/L 58 Total Protein (6.4-8.2) g/dL 8.1 Albumin (3.4-5.0) g/dL 3.7 TSH (0.36-3.74) uIU/mL 6.71 H Free T4 (0.76-1.46) ng/dL 0.95 Serum HCG, Qual Negative Urine Color (Yellow) Yellow Urine Clarity (Clear) Clear Urine pH (5-8) 5.5 Ur Specific [place] (1.005-1.025) >= 1.030 H Urine Protein (Neg-Trace) mg/dL >=300 H Urine Ketones (Negative) mg/dL Trace H Urine Blood (Negative) Moderate H Urine Nitrite (Negative) Negative Urine Bilirubin (Negative) Small H Urine Urobilinogen (Up to 0.2) mg/dL 0.2 Ur Leukocyte Esterase (Negative) Negative Urine RBC (0-2) HPF 5-10 H Urine WBC (0-5) HPF 5-10 Ur Epithelial Cells (Negative) HPF Moderate Urine Crystals (Negative) HPF Negative Urine Bacteria (Negative) HPF Negative Urine Casts (Negative) LPF 10-20 Hyaline Urine Mucus (Negative) Heavy Ur Culture Indicated? No/Sq. Contamination Urine Glucose (Negative) mg/dL Negative Urine Opiates Screen (Negative) Negative Urine Methadone Screen (Negative) Negative Ur Barbiturates Screen (Negative) Negative Ur Tricyclics Screen (Negative) Negative Ur Amphetamines Screen (Negative) Negative U Benzodiazepines Scrn (Negative) Negative Urine Cocaine Screen (Negative) Positive A Ur THC Screen (Negative) Negative Ethyl Alcohol (<10) mg/dL < 3.0 Add-On Test Request DONE Range/Units 12/03/24 06:57 WBC (4.4-10.8) 10^3/uL RBC (3.93-5.22) 10^6/uL Hgb (11.2-15.7) g/dL Hct (36.0-46.0) % MCV (80-95) fL MCH (27.0-33.0) pg MCHC (32.0-36.0) % RDW (11.7-14.6) % Plt Count (130-400) 10^3/uL MPV (8.0-11.0) fL Immature Gran % % Neutrophils % % Lymphocytes % % Monocytes % % Eosinophils % % Basophils % % Nucleated RBC % (0.0-0.3) % Absolute Neutrophils (1.2-6.7) 10^3/uL Absolute Lymphocytes (1.2-3.4) 10^3/uL Absolute Monocytes (0.1-0.8) 10^3/uL Absolute Eosinophils (0.0-0.7) 10^3/uL Absolute Basophils (0.0-0.2) 10^3/uL PT (9.1-11.1) sec INR (0.9-1.1) APTT (20.6-30.2) sec Sodium (136-145) mmol/L Potassium (3.5-5.1) mmol/L Chloride (98-107) mmol/L Carbon Dioxide (21.0-32.0) mmol/L Anion Gap (3-11) mmol/L BUN (7-18) mg/dL Creatinine (0.55-1.02) mg/dL Est GFR (CKD-EPI 2020) (mL/min/1.73m2) Glucose (74-106) mg/dL Calcium (8.5-10.1) mg/dL Magnesium (1.8-2.4) mg/dL Total Bilirubin (0.2-1.0) mg/dL AST (15-37) U/L ALT (14-59) U/L Alkaline Phosphatase (46-116) U/L Creatine Kinase (26-192) U/L Total Protein (6.4-8.2) g/dL Albumin (3.4-5.0) g/dL TSH (0.36-3.74) uIU/mL Free T4 (0.76-1.46) ng/dL Serum HCG, Qual Urine Color (Yellow) Yellow Urine Clarity (Clear) Clear Urine pH (5-8) 5.5 Ur Specific [place] (1.005-1.025) >= 1.030 H Urine Protein (Neg-Trace) mg/dL 100 H Urine Ketones (Negative) mg/dL Negative Urine Blood (Negative) Small H Urine Nitrite (Negative) Negative Urine Bilirubin (Negative) Negative Urine Urobilinogen (Up to 0.2) mg/dL 0.2 Ur Leukocyte Esterase (Negative) Negative Urine RBC (0-2) HPF Negative Urine WBC (0-5) HPF Negative Ur Epithelial Cells (Negative) HPF Rare Urine Crystals (Negative) HPF Negative Urine Bacteria (Negative) HPF Negative Urine Casts (Negative) LPF 5-10 Hyaline Urine Mucus (Negative) Moderate Ur Culture Indicated? No Urine Glucose (Negative) mg/dL Negative Urine Opiates Screen (Negative) Urine Methadone Screen (Negative) Ur Barbiturates Screen (Negative) Ur Tricyclics Screen (Negative) Ur Amphetamines Screen (Negative) U Benzodiazepines Scrn (Negative) Urine Cocaine Screen (Negative) Ur THC Screen (Negative) Ethyl Alcohol (<10) mg/dL Add-On Test Request Quality:SDOH Health Related Social Needs: Health related social needs risk of homeless food inse curity finding work Health related social needs details n/a PFSH All Active Problems (Updated 12/03/24 @ 07:29 by Shara Monahan MD) Seizure (Acute) Prolonged QT interval (Acute) Elevated MCV (Acute) Ruptured right breast implant (Acute) Left eye pain (Acute) Closed left ankle fracture (Acute 04/07/21) Myasthenia gravis with exacerbation (Acute) Headache (Acute) Myasthenic crisis (Acute) Shortness of breath (Acute) Upper back pain (Acute) Carpal tunnel syndrome on left (Acute) Anemia (Chronic) Carpal tunnel syndrome on right (Acute) s/p right ECTR DOS: 02/19/20 Dr. 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 Pot Number of Children: 2 current occupation: Unemployed Current gender identity: female Do you feel safe at home: Yes Do you feel safe in your relationship?: Yes Female Reproductive History Menstrual control method: permanent sterilization History History 4 Para 2 Hx # Term Pregnancies Multiple births Hx # Pregnancies Ectopic pregnancies AB induced Hx Number of Living Children AB spontaneous
[2024-12-03 00:50] LABS: HCG Qual (Serum) Negative
[2024-12-03 00:53] LABS: INR 1.0 (0.9-1.1); PTT Activated 21.9 sec (20.6-30.2); Prothrombin Time 10.3 sec (9.1-11.1)
[2024-12-03 00:58] LABS: Abs Immature Grans 0.05 10^3/uL (0.0-0.06); HCT 38.8 % (36.0-46.0); HGB 12.4 g/dL (11.2-15.7); Immature Grans % 0.4 %; MCH 28.2 pg (27.0-33.0); MCHC 32.0 % (32.0-36.0); MCV 88 fL (80-95); MPV 11.4 fL (8.0-11.0); Platelet Count 267 10^3/uL (130-400); RBC 4.39 10^6/uL (3.93-5.22); RDW 14.8 % (11.7-14.6); RDW-SD 47.6 fL; WBC 13.52 10^3/uL (4.4-10.8)
[2024-12-03 01:07] LABS: ALT 19 U/L (14-59); AST 15 U/L (15-37); Albumin 3.7 g/dL (3.4-5.0); Alkaline Phosphatase 73 U/L (46-116); Anion Gap 7.9 mmol/L (3-11); BUN 13 mg/dL (7-18); Bilirubin, Total 0.2 mg/dL (0.2-1.0); CO2 29.1 mmol/L (21.0-32.0); Calcium 9.0 mg/dL (8.5-10.1); Chloride 104 mmol/L (98-107); Estimated GFR 71.69 (mL/min/1.73m2); Glucose 116 mg/dL (74-106); Magnesium 1.8 mg/dL (1.8-2.4); Potassium 4.1 mmol/L (3.5-5.1); Sodium 141 mmol/L (136-145); TSH (W/Ref FT4) 6.71 uIU/mL (0.36-3.74); Total Protein 8.1 g/dL (6.4-8.2)
--- NOTE | 2024-12-03 01:15 | RT.EKG_ITS ---
APPROVED REPORT Exam: Resting ECG Reason for Exam: seizure Patient Location: E HR:78 bpm ECG Measurements Heart Rate 78 AXIS AZ 150 P 63 QRSd 82 QRS 36 QT 414 T 15 QTc 472 Conclusion Sinus rhythm...normal P axis, V-rate 60- 99 Probable left atrial enlargement...P >50mS, <-0.10mV V1 appropriate intervals no ST segment or T wave abnormalities to suggest occluisve KS
[2024-12-03 01:17] LABS: Glucose Negative (Negative)
[2024-12-03 01:37] LABS: Lab Add On Test DONE
[2024-12-03 02:02] LABS: Cannabinoids THC Negative (Negative); METHADONE URINE SCREEN Negative (Negative)
--- NOTE | 2024-12-03 02:02 | DI.CT_ITS ---
Exam(s) CT HEAD WO EXAM: CT HEAD WO CLINICAL HISTORY: seizure. TECHNIQUE: Imaging Protocol: Axial computed tomography images with coronal and sagittal reformatted images were created and reviewed COMPARISON: CT CT HEAD WO from 02/21/2022 FINDINGS: There are no skull fractures. There is no fluid in the visualized paranasal sinuses. There is no evidence of intracranial hemorrhage, mass effect, or shift of midline structures. There are no extra-axial fluid collections. The ventricles are not enlarged or shifted and there is no blood within the ventricular system nor within the basal cisterns. IMPRESSION: No acute intracranial findings on this noninfused CT scan of the brain. Preliminary virtual Radiology report reviewed RADIATION DOSE DELIVERED: 848.62mGy.cm Total DLP DATA REPOSITORY: All CT scans at this facility are submitted to the National Radiology Data Registry (NRDR) Dose Index Registry (DIR) with the [employer] (ACR). RADIATION OPTIMIZATION: All CT scans at this facility use at least one of these dose optimization techniques: automated exposure control; mA and/or kV adjustment per patient size (includes targeted exams where dose is matched to clinical indication); or iterative reconstruction.
[2024-12-03 02:03] LABS: Creatine Kinase 58 U/L (26-192)
--- NOTE | 2024-12-03 02:14 | DI.VRAD_ITS ---
PROCEDURE INFORMATION: Exam: CT Head Without Contrast Exam date and time: 12/03/2024 1:42 AM Age: 44 years old Clinical indication: Other: Seizure TECHNIQUE: Imaging protocol: Computed tomography of the head without contrast. COMPARISON: CT HEAD WO 02/21/2022 10:34 PM FINDINGS: Brain: Normal. No hemorrhage or edema. Cerebral ventricles: No ventriculomegaly. Paranasal sinuses: Visualized sinuses are unremarkable. No fluid levels. Mastoid air cells: Unremarkable. Bones: Unremarkable. No acute fracture. Soft tissues: Unremarkable. IMPRESSION: No acute intracranial abnormality. Dictated and Authenticated by: Juan C Marks MD. Orderin Hero Olmedo MD
--- NOTE | 2024-12-03 02:15 | DI.VRAD_ITS ---
PROCEDURE INFORMATION: Exam: XR Chest Exam date and time: 12/03/2024 1:58 AM Age: 44 years old Clinical indication: Other: Seizure TECHNIQUE: Imaging protocol: Radiologic exam of the chest. Views: 2 views. COMPARISON: CT CHEST W 08/20/2023 3:03 PM FINDINGS: Lungs: Unremarkable. No consolidation. Pleural spaces: Unremarkable. No pleural effusion. No pneumothorax. Heart/Mediastinum: Unremarkable. No cardiomegaly. Bones/joints: Unremarkable. IMPRESSION: No acute findings. Dictated and Authenticated by: Juan C Marks MD. Orderin Hero Olmedo MD
--- NOTE | 2024-12-03 07:03 | ED.PROG_ITS ---
Date of service: 12/03/24 Time of Service: 07:03 Medical Decision Making Quality:SDOH Health Related Social Needs: Health related social needs risk of homeless food inse curity finding work Health related social needs details n/a Discharge Plan Discharge Details Chief Complaint: GenMedical Primary Care Provider: Barrera Dsouza ED Provider: Shara Monahan Home Meds and New Rx's Prescriptions: No Action omeprazole 40 mg capsule,delayed release(DR/EC) 40 mg PO DAILY Qty: 90 3RF buprenorphine-naloxone [Suboxone] 8-2 mg film 2 film sublingual DAILY azathioprine 50 mg tablet 250 mg PO DAILY Qty: 450 3RF pyridostigmine bromide [Mestinon] 60 mg tablet 60 mg PO TID Qty: 270 3RF ibuprofen 200 mg capsule 200 mg PO Q6H PRN acetaminophen [Tylenol] 325 mg Tablet 650 mg PO Q4H PRN PRNQty: 0 0RF
[2024-12-03 07:16] LABS: Glucose Negative (Negative)
[2024-12-03 07:23] LABS: C & S Indicated? No; RBC Negative HPF (0-2); WBC Negative HPF (0-5)
--- NOTE | 2024-12-03 07:33 | W.PM.HP.N ---
[facility] All Active Problems (Updated 12/03/24 @ 07:29 by Shara Monahan MD) Seizure (Acute) Prolonged QT interval (Acute) Elevated MCV (Acute) Ruptured right breast implant (Acute) Left eye pain (Acute) Closed left ankle fracture (Acute 04/07/21) Myasthenia gravis with exacerbation (Acute) Headache (Acute) Myasthenic crisis (Acute) Shortness of breath (Acute) Upper back pain (Acute) Carpal tunnel syndrome on left (Acute) Anemia (Chronic) Carpal tunnel syndrome on right (Acute) s/p right ECTR DOS: 02/19/20 Dr. 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 Pot Number of Children: 2 current occupation: Unemployed Current gender identity: female Do you feel safe at home: Yes Do you feel safe in your relationship?: Yes Female Reproductive History Menstrual control method: permanent sterilization History History 4 Para 2 Hx # Term Pregnancies Multiple births Hx # Pregnancies Ectopic pregnancies AB induced Hx Number of Living Children AB spontaneous Meds Allergies and Home Medications Allergies Allergy/AdvReac Type Severity Reaction Status Date / Time adhesive tape Allergy Severe pealed her Verified 07/13/24 06:22 skin off when removing the tape. Home Medications ?Medication ?Instructions ?Recorded ?Confirmed ?Type ibuprofen 200 mg capsule 200 mg PO Q6H PRN 04/26/19 12/03/24 History acetaminophen 325 mg tablet 650 mg (2 x 325 mg) PO Q4H PRN PRN 09/03/20 12/03/24 Rx (Tylenol) #0 tabs omeprazole 40 mg capsule,delayed 40 mg PO DAILY #90 caps 01/29/21 12/03/24 Rx release buprenorphine 8 mg-naloxone 2 mg 2 film sublingual DAILY 02/11/21 12/03/24 History sublingual film (Suboxone) azathioprine 50 mg tablet 250 mg (5 x 50 mg) PO DAILY #450 10/27/23 12/03/24 Rx tabs pyridostigmine bromide 60 mg 60 mg PO TID #270 tabs 10/27/23 12/03/24 Rx tablet (Mestinon) Results Labs 12/03/24 00:20 12/03/24 00:20 Labs: Laboratory Results - last 24 hr 12/03/24 12/03/24 12/03/24 00:20 00:40 01:35 WBC 13.52 H RBC 4.39 Hgb 12.4 Hct 38.8 MCV 88 MCH 28.2 MCHC 32.0 RDW 14.8 H Plt Count 267 MPV 11.4 H Immature Gran % 0.4 Neutrophils % 78.8 Lymphocytes % 11.8 Monocytes % 4.7 Eosinophils % 3.7 Basophils % 0.6 Nucleated RBC % 0.0 Absolute Neutrophils 10.65 H Absolute Lymphocytes 1.60 Absolute Monocytes 0.64 Absolute Eosinophils 0.50 Absolute Basophils 0.08 PT 10.3 INR 1.0 APTT 21.9 Sodium 141 Potassium 4.1 Chloride 104 Carbon Dioxide 29.1 Anion Gap 7.9 BUN 13 Creatinine 1.0 Est GFR (CKD-EPI 2020) 71.69 Glucose 116 H Calcium 9.0 Magnesium 1.8 Total Bilirubin 0.2 AST 15 ALT 19 Alkaline Phosphatase 73 Creatine Kinase 58 Total Protein 8.1 Albumin 3.7 TSH 6.71 H Free T4 0.95 Serum HCG, Qual Negative Urine Color Yellow Urine Clarity Clear Urine pH 5.5 Ur Specific [place] >= 1.030 H Urine Protein >=300 H Urine Ketones Trace H Urine Blood Moderate H Urine Nitrite Negative Urine Bilirubin Small H Urine Urobilinogen 0.2 Ur Leukocyte Esterase Negative Urine RBC 5-10 H Urine WBC 5-10 Ur Epithelial Cells Moderate Urine Crystals Negative Urine Bacteria Negative Urine Casts 10-20 Hyaline Urine Mucus Heavy Ur Culture Indicated? No/Sq. Contamination Urine Glucose Negative Urine Opiates Screen Negative Urine Methadone Screen Negative Ur Barbiturates Screen Negative Ur Tricyclics Screen Negative Ur Amphetamines Screen Negative U Benzodiazepines Scrn Negative Urine Cocaine Screen Positive A Ur THC Screen Negative Ethyl Alcohol < 3.0 Add-On Test Request DONE 12/03/24 06:57 WBC RBC Hgb Hct MCV MCH MCHC RDW Plt Count MPV Immature Gran % Neutrophils % Lymphocytes % Monocytes % Eosinophils % Basophils % Nucleated RBC % Absolute Neutrophils Absolute Lymphocytes Absolute Monocytes Absolute Eosinophils Absolute Basophils PT INR APTT Sodium Potassium Chloride Carbon Dioxide Anion Gap BUN Creatinine Est GFR (CKD-EPI 2020) Glucose Calcium Magnesium Total Bilirubin AST ALT Alkaline Phosphatase Creatine Kinase Total Protein Albumin TSH Free T4 Serum HCG, Qual Urine Color Yellow Urine Clarity Clear Urine pH 5.5 Ur Specific [place] >= 1.030 H Urine Protein 100 H Urine Ketones Negative Urine Blood Small H Urine Nitrite Negative Urine Bilirubin Negative Urine Urobilinogen 0.2 Ur Leukocyte Esterase Negative Urine RBC Negative Urine WBC Negative Ur Epithelial Cells Rare Urine Crystals Negative Urine Bacteria Negative Urine Casts 5-10 Hyaline Urine Mucus Moderate Ur Culture Indicated? No Urine Glucose Negative Urine Opiates Screen Urine Methadone Screen Ur Barbiturates Screen Ur Tricyclics Screen Ur Amphetamines Screen U Benzodiazepines Scrn Urine Cocaine Screen Ur THC Screen Ethyl Alcohol Add-On Test Request Last Vital Signs Temp 37 C 12/03/24 04:47 Pulse 81 12/03/24 07:00 Resp 20 12/03/24 07:00 BP 168/116 H 12/03/24 06:57 Pulse Ox 100 12/03/24 07:00
--- NOTE | 2024-12-03 11:52 | W.PC.ACHO ---
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 (Last Reviewed 01/19/24 @ 15:19 by Riya Biswas MD) S/P dilatation and curettage S/P tubal ligation History of thymectomy Hx of breast implants, bilateral Most Recent Vital Signs Temperature 37 C 12/03/24 04:47 Temperature Source Oral 12/03/24 04:47 Pulse 90 12/03/24 10:46 Pulse 93 H 12/03/24 10:46 Respiratory Rate 19 12/03/24 10:46 Blood Pressure 135/83 12/03/24 10:46 Blood Pressure Mean 101 12/03/24 10:46 Pulse Oximetry 100 12/03/24 08:30 Oxygen Delivery Method Room Air 12/03/24 04:47 Oxygen Flow Rate 0 12/03/24 04:47 Pain Level 0 12/03/24 02:02 Allergies adhesive tape Allergy (Severe, Verified 07/13/24 06:22) pealed her skin off when removing the tape. Precautions Isolation Standard precaution 12/02/24 23:50 IV IV Catheter Type [Right Saline Lock Antecubital] Diet Orders Category Date Time Status Regular/Normal [DIET] Nutrition 12/03/24 Breakfast Active Diagnostics 12/03/24 12/03/24 12/03/24 Range/Units 06:57 01:35 00:40 WBC (4.4-10.8) 10^3/uL RBC (3.93-5.22) 10^6/uL Hgb (11.2-15.7) g/dL Hct (36.0-46.0) % MCV (80-95) fL MCH (27.0-33.0) pg MCHC (32.0-36.0) % RDW (11.7-14.6) % Plt Count (130-400) 10^3/uL MPV (8.0-11.0) fL Immature Gran % % Neutrophils % % Lymphocytes % % Monocytes % % Eosinophils % % Basophils % % Nucleated RBC % (0.0-0.3) % Absolute Neutrophils (1.2-6.7) 10^3/uL Absolute Lymphocytes (1.2-3.4) 10^3/uL Absolute Monocytes (0.1-0.8) 10^3/uL Absolute Eosinophils (0.0-0.7) 10^3/uL Absolute Basophils (0.0-0.2) 10^3/uL PT (9.1-11.1) sec INR (0.9-1.1) APTT (20.6-30.2) sec Sodium (136-145) mmol/L Potassium (3.5-5.1) mmol/L Chloride (98-107) mmol/L Carbon Dioxide (21.0-32.0) mmol/L Anion Gap (3-11) mmol/L BUN (7-18) mg/dL Creatinine (0.55-1.02) mg/dL Est GFR (CKD-EPI 2020) (mL/min/1.73m2) Glucose (74-106) mg/dL Calcium (8.5-10.1) mg/dL Magnesium (1.8-2.4) mg/dL Total Bilirubin (0.2-1.0) mg/dL AST (15-37) U/L ALT (14-59) U/L Alkaline Phosphatase (46-116) U/L Creatine Kinase 58 (26-192) U/L Total Protein (6.4-8.2) g/dL Albumin (3.4-5.0) g/dL TSH (0.36-3.74) uIU/mL Free T4 (0.76-1.46) ng/dL Serum HCG, Qual Urine Color Yellow Yellow (Yellow) Urine Clarity Clear Clear (Clear) Urine pH 5.5 5.5 (5-8) Ur Specific [place] >= 1.030 H >= 1.030 H (1.005-1.025) Urine Protein 100 H >=300 H (Neg-Trace) mg/dL Urine Ketones Negative Trace H (Negative) mg/dL Urine Blood Small H Moderate H (Negative) Urine Nitrite Negative Negative (Negative) Urine Bilirubin Negative Small H (Negative) Urine Urobilinogen 0.2 0.2 (Up to 0.2) mg/dL Ur Leukocyte Esterase Negative Negative (Negative) Urine RBC Negative 5-10 H (0-2) HPF Urine WBC Negative 5-10 (0-5) HPF Ur Epithelial Cells Rare Moderate (Negative) HPF Urine Crystals Negative Negative (Negative) HPF Urine Bacteria Negative Negative (Negative) HPF Urine Casts 5-10 Hyaline 10-20 Hyaline (Negative) LPF Urine Mucus Moderate Heavy (Negative) Ur Culture Indicated? No No/Sq. Contamination Urine Glucose Negative Negative (Negative) mg/dL Urine Opiates Screen Negative (Negative) Urine Methadone Screen Negative (Negative) Ur Barbiturates Screen Negative (Negative) Ur Tricyclics Screen Negative (Negative) Ur Amphetamines Screen Negative (Negative) U Benzodiazepines Scrn Negative (Negative) Urine Cocaine Screen Positive A (Negative) Ur THC Screen Negative (Negative) Ethyl Alcohol (<10) mg/dL Add-On Test Request DONE 12/03/24 Range/Units 00:20 WBC 13.52 H (4.4-10.8) 10^3/uL RBC 4.39 (3.93-5.22) 10^6/uL Hgb 12.4 (11.2-15.7) g/dL Hct 38.8 (36.0-46.0) % MCV 88 (80-95) fL MCH 28.2 (27.0-33.0) pg MCHC 32.0 (32.0-36.0) % RDW 14.8 H (11.7-14.6) % Plt Count 267 (130-400) 10^3/uL MPV 11.4 H (8.0-11.0) fL Immature Gran % 0.4 % Neutrophils % 78.8 % Lymphocytes % 11.8 % Monocytes % 4.7 % Eosinophils % 3.7 % Basophils % 0.6 % Nucleated RBC % 0.0 (0.0-0.3) % Absolute Neutrophils 10.65 H (1.2-6.7) 10^3/uL Absolute Lymphocytes 1.60 (1.2-3.4) 10^3/uL Absolute Monocytes 0.64 (0.1-0.8) 10^3/uL Absolute Eosinophils 0.50 (0.0-0.7) 10^3/uL Absolute Basophils 0.08 (0.0-0.2) 10^3/uL PT 10.3 (9.1-11.1) sec INR 1.0 (0.9-1.1) APTT 21.9 (20.6-30.2) sec Sodium 141 (136-145) mmol/L Potassium 4.1 (3.5-5.1) mmol/L Chloride 104 (98-107) mmol/L Carbon Dioxide 29.1 (21.0-32.0) mmol/L Anion Gap 7.9 (3-11) mmol/L BUN 13 (7-18) mg/dL Creatinine 1.0 (0.55-1.02) mg/dL Est GFR (CKD-EPI 2020) 71.69 (mL/min/1.73m2) Glucose 116 H (74-106) mg/dL Calcium 9.0 (8.5-10.1) mg/dL Magnesium 1.8 (1.8-2.4) mg/dL Total Bilirubin 0.2 (0.2-1.0) mg/dL AST 15 (15-37) U/L ALT 19 (14-59) U/L Alkaline Phosphatase 73 (46-116) U/L Creatine Kinase (26-192) U/L Total Protein 8.1 (6.4-8.2) g/dL Albumin 3.7 (3.4-5.0) g/dL TSH 6.71 H (0.36-3.74) uIU/mL Free T4 0.95 (0.76-1.46) ng/dL Serum HCG, Qual Negative Urine Color (Yellow) Urine Clarity (Clear) Urine pH (5-8) Ur Specific [place] (1.005-1.025) Urine Protein (Neg-Trace) mg/dL Urine Ketones (Negative) mg/dL Urine Blood (Negative) Urine Nitrite (Negative) Urine Bilirubin (Negative) Urine Urobilinogen (Up to 0.2) mg/dL Ur Leukocyte Esterase (Negative) Urine RBC (0-2) HPF Urine WBC (0-5) HPF Ur Epithelial Cells (Negative) HPF Urine Crystals (Negative) HPF Urine Bacteria (Negative) HPF Urine Casts (Negative) LPF Urine Mucus (Negative) Ur Culture Indicated? Urine Glucose (Negative) mg/dL Urine Opiates Screen (Negative) Urine Methadone Screen (Negative) Ur Barbiturates Screen (Negative) Ur Tricyclics Screen (Negative) Ur Amphetamines Screen (Negative) U Benzodiazepines Scrn (Negative) Urine Cocaine Screen (Negative) Ur THC Screen (Negative) Ethyl Alcohol < 3.0 (<10) mg/dL Add-On Test Request Intake and Output - 24 Hour Total 12/02/24 23:32 thru 12/02/24 23:40 Weight 65.317 kg Falls Risk Assessment History of Falls No History 12/02/24 23:50 Contributing Factors No Factors 12/02/24 23:50 Ambulatory Aids Independent 12/02/24 23:50 Tubes/Lines None 12/02/24 23:50 Gait Evaluation No gait disturbance 12/02/24 23:50 Cognition No cognitive impairment 12/02/24 23:50 Fall Total Score 0 12/02/24 23:50 Level of Risk Standard/Low Risk 12/02/24 23:50 Problems (Last Reviewed 01/19/24 @ 15:19 by Riya Biswas MD) Seizure (Acute) v v v v v v v v v Sending and/or Receiving Nurses: Please use comment section below to note any information pertinent to the patient hand-off not included above. Information / Comments: report received, all questions answered. Report received from: report received from MATTHEW Garg @ [id number]
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
[2024-12-03] MEDS: Acetaminophen 325 MG TAB 650 MG PO (23:18)
[2024-12-04 04:13] VITALS: BP 131/89; PULSE 89; RESP 22; TEMP 36.4; O2SAT 99
[2024-12-04 07:59] VITALS: BP 147/100; PULSE 100; RESP 18; TEMP 36.6; O2SAT 100
--- NOTE | 2024-12-04 08:23 | W.PM.DS.N ---
Date of service: 12/04/24 Time of Service: 08:23 DS: Diagnosis Discharge Diagnosis (1) Seizure: Status: Suspected (2) Polysubstance (including opioids) dependence with physiol dependence: Status: Acute (3) Depression: Status: Chronic Discharge Plan Disposition Patient Disposition: Against Medical Advice Condition: Fair Discharge Details Reason For Visit: possible Seizures Admit Date/Time: 12/03/24 07:40 Admit Provider: Cain Munoz Attending Provider: Cain Munoz Primary Care Provider: Barrera Dsouza Hospital Course Hospital Course: This is a 44 year old female with history of polysubstance abuse and OUD on buprenorphine and myasthenia gravis who was brought to the ED for evaluation of seizure-like activity that she had been having daily for a week. She denied any similar history. She had a benign exam and head CT on admission. Laboratory examinations were significant for positive cocaine in the UDS, though she had denied recent drug use. Telenuerology was consulted, felt this was seizure disorder vs PNES ans she was admitted for observation and EEG. No anti-epileptic therapy was recommended. There were no observed events overnight. She was cooperative during her admission, but left AMA abruptly the next morning after a visit from her boyfriend. It was recommended she avoid driving and swimming and take other seizure precautions pending full evaluation. Home Meds and New Rx's Prescriptions: Continued omeprazole 40 mg capsule,delayed release(DR/EC) 40 mg PO DAILY Qty: 90 3RF buprenorphine-naloxone [Suboxone] 8-2 mg film 2 film sublingual DAILY azathioprine 50 mg tablet 250 mg PO DAILY Qty: 450 3RF pyridostigmine bromide [Mestinon] 60 mg tablet 60 mg PO TID Qty: 270 3RF ibuprofen 200 mg capsule 200 mg PO Q6H PRN acetaminophen [Tylenol] 325 mg Tablet 650 mg PO Q4H PRN PRNQty: 0 0RF Discharge Instructions Instructions: Seizures Diet:: As Tolerated Discharge Orders Discharge Orders: Discharge Order (Routine); Ordered 12/04/24 Ordered By: Aquilino Munson Discharge Data Discharge Date/Time-TO BE ENTERED AT DEPARTURE: 12/04/24 08:05 DS: Summary Time Spent with Patient providing and/or coordinating discharge services: Less than 30 minutes Status at Discharge Functional status at discharge: independent ambulation Overall status at discharge: patient is back to baseline Mental Status: mental status grossly normal Speech and Movement: speech and movement normal Mood: congruent mood Affect: normal affect Quality:SDOH Health Related Social Needs: Health related social needs material hardship Health related social needs details ran out of oil or electricity a time or two Health related social needs details: ran out of oil or electricity a time or two Exam Narrative Exam Narrative: Ambulatory, alert and oriented, no focal neurologic deficits, but patient left before formally seen 12/04 Psych Mental Status: mental status grossly normal Speech and Movement: speech and movement normal Mood: congruent mood Affect: normal affect DS: Data Vitals/I&O Vitals and I&O: Vital Signs Temperature 36.6 C 12/04/24 07:59 Temperature Source Temporal Artery Scan 12/04/24 07:59 Pulse 100 H 12/04/24 07:59 Pulse Rhythm Regular 12/03/24 12:16 Pulse 93 H 12/03/24 10:46 Respiratory Rate 18 12/04/24 07:59 Respiratory Effort Normal, Non-Labored 12/03/24 12:16 Respiratory Depth Normal 12/03/24 12:16 Respiratory Pattern Normal 12/03/24 12:16 Blood Pressure 147/100 H 12/04/24 07:59 Blood Pressure Mean 115 12/04/24 07:59 Pulse Oximetry 100 12/04/24 07:59 Oxygen Delivery Method Room Air 12/04/24 07:59 Oxygen Flow Rate 0 12/04/24 07:59 Pain Level 0 12/04/24 07:15 Comment Pt stated that she has pain in her lt. hand, nurse notified. 12/03/24 23:21 Intake & Output 12/03/24 12/03/24 12/04/24 11:59 23:59 11:59 Intake Total 650 / 650 Output Total 800 / 800 700 / 700 Balance -150 / -150 -700 / -700 Intake: Oral 650 / 650 Output: Urine 800 / 800 700 / 700 Other: Urine Color Yellow Yellow Urine Appearance Clear Clear Urine Odor Normal Normal Comment Pt voids ind. in the toilet. Pt. voids in the toilet. PFSH All Active Problems (Updated 12/03/24 @ 22:10 by Nancy Mcknight NP) Prolonged QT interval (Acute) Elevated MCV (Acute) Ruptured right breast implant (Acute) Left eye pain (Acute) Closed left ankle fracture (Acute 04/07/21) Myasthenia gravis with exacerbation (Acute) Headache (Acute) Upper back pain (Acute) Shortness of breath (Acute) Myasthenic crisis (Acute) Carpal tunnel syndrome on left (Acute) Carpal tunnel syndrome on right (Acute) s/p right ECTR DOS: 02/19/20 Dr. 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 Pot Housing: house Number of Children: 2 current occupation: Unemployed Current gender identity: female Do you feel safe at home: Yes Do you feel safe in your relationship?: Yes Female Reproductive History Menstrual control method: permanent sterilization History History 4 Para 2 Hx # Term Pregnancies Multiple births Hx # Pregnancies Ectopic pregnancies AB induced Hx Number of Living Children AB spontaneous Time Spent with Patient Time Spent with Patient: <45 minutes Time was spent: preparing to see the patient(eg.review tests), obtaining and/or reviewing separately otained hiistory, referring, communicating with other health complex care nurse practitioner and care coordination
--- NOTE | 2024-12-04 10:04 | CMPROGNOTE_ITS ---
Date of service: 12/04/24 Time of Service: 10:04 Care Management Progress Note Progress Note Text Progress Note Text: Aaliyah was admitted into observation status with seizures yesterday. She has a history of KAITLYN and OUD and tested positive for cocaine on admission. Aaliyah was scheduled to have an EEG and other testing, however she signed out AMA early this morning before CM was able to see her. Social Determinants of Health Screening Social Determinants of health last assessed in clinic: 12/04/24 Will the Patient Participate in the Screening?: Yes Do you worry about having a steady place to live?: no Problems where you live: no known problems In the past 12 months, have you had to go without electric, gas, oil or water in your home?: yes 1. Within the past 12 months, we worried whether our food would run out before we got money to buy more.: Don't know/refused 2. Within the past 12 months, the food we bought just didn't last and we didn't have money to get more.: Don't know/refused Has lack of transportation kept you from medical appointments or from doing things needed for daily living?: no Has anyone in your life made you feel unsafe or unsupported?: no How hard is it for you to pay for the very basics like food, housing, medical care, and heating? Would you say it is:: Not hard at all Do you want help finding or keeping work or a job?: I do not need or want help If for any reason you need help with day-to-day activities such as bathing, preparing meals, shopping, managing finances, etc., do you get the help you need?: I don?t need any help How often do you feel lonely or isolated from those around you?: Never Do you speak a language other than [place] at home?: No Does the patient want assistance with any of the above?: No Health Related Social Needs Health related social needs: material hardship(utilities) (Z59.12) Health related social needs details: ran out of oil or electricity a time or two
== END 2024-12-04 08:05 | disposition left against medical advice (07) ==
LOC: ER 12-03 07:45 → EDHOLD 12-03 09:03 → MS 12-03 12:02
PROVIDERS: Admitting Provider Family Medicine; Emergency Provider Student in an Organized Health Care Education/Training Program; PCP Physician Assistant; Responsible Provider Nurse Practitioner Acute Care; Visit Provider Family Medicine
DX: R56.9 Unspecified convulsions (principal); G70.00 Myasthenia gravis without (acute) exacerbation; Z59.811 Housing instability, housed, with risk of homelessness; Z59.41 Food insecurity; R94.31 Abnormal electrocardiogram [ECG] [EKG]; D64.9 Anemia, unspecified; G47.19 Other hypersomnia; F32.A Depression, unspecified; F11.20 Opioid dependence, uncomplicated; F19.20 Other psychoactive substance dependence, uncomplicated; T23.252A Burn of second degree of left palm, initial encounter; X15.0XXA Contact with hot stove (kitchen), initial encounter
CPT/HCPCS: 00123; 36415; 80053; 80307; 82550; 93005; 99285; 70450; 71046; 80320; 81003; 81015; 83735; 84439; 84443; 84703; 85025; 85610; 85730; 93010; 99222; 99238; G0378

== ENCOUNTER 2025-01-23 20:03 | Emergency (ER) | payer MEDICAID, SELFPAY ==
[2025-01-23] VITALS (7 sets, daily range): BP systolic 134–145; BP diastolic 88–99; PULSE 85–99; RESP 14–24; TEMP 36.8; O2SAT 94
--- NOTE | 2025-01-23 20:15 | RT.EKG_ITS ---
APPROVED REPORT Exam: Resting ECG Reason for Exam: shortness of breath Patient Location: E HR:92 bpm ECG Measurements Heart Rate 92 AXIS KS 136 P 53 QRSd 80 QRS 53 QT 366 T 55 QTc 452 Conclusion Sinus rhythm...normal P axis, V-rate 60- 99 Normal axis and interval No actue ST changes
--- NOTE | 2025-01-23 20:30 | DI.RAD_ITS ---
Exam(s) XR CHEST 2V PA LATERAL EXAM: XR CHEST 2V PA LATERAL CLINICAL HISTORY: SOB, Wheezing. TECHNIQUE: 2D digital imaging was performed. COMPARISON: No exams were available for comparison FINDINGS: 2 views: Heart size is normal. The mediastinum is not widened. Lungs are clear. No infiltrates nor pleural effusions. IMPRESSION: No acute pulmonary findings. DATA REPOSITORY: RADIATION DOSE DELIVERED:
--- NOTE | 2025-01-23 20:45 | ED.GENADUL_ITS ---
Discharge Plan Disposition Patient Disposition: Home Condition: Stable Discharge Details Clinical Impression: URI (upper respiratory infection) Primary Care Provider: Barrera Dsouza ED Provider: Carlie Altamirano Home Meds and New Rx's Prescriptions: New azithromycin 250 mg tablet See Rx Instructions PO .COMPLEX 6 Days Qty: 6 0RF Rx Instructions: For 250 mg dose pack: take 500 mg today (day 1), then 250 mg for 4 days (days 2-5) prednisone 50 mg tablet 50 mg PO DAILY 5 Days Qty: 5 0RF Rx Instructions: Take 1 tablet daily for the next 5 days No Action omeprazole 40 mg capsule,delayed release(DR/EC) 40 mg PO DAILY Qty: 90 3RF buprenorphine-naloxone [Suboxone] 8-2 mg film 2 film sublingual DAILY azathioprine 50 mg tablet 250 mg PO DAILY Qty: 450 3RF pyridostigmine bromide [Mestinon] 60 mg tablet 60 mg PO TID Qty: 270 3RF ibuprofen 200 mg capsule 200 mg PO Q6H PRN acetaminophen [Tylenol] 325 mg Tablet 650 mg PO Q4H PRN PRNQty: 0 0RF Discharge Instructions Instructions: Upper respiratory infection in adults - Discharge instructions Additional Instructions: At this time you are negative for COVID flu and RSV, no evidence of pneumonia on the x-ray. However I will treat again as this is been ongoing. Please use the albuterol inhaler 1 or 2 puffs every 4-6 hours as needed for wheezing and shortness of breath. Please take the prednisone as prescribed. Follow up with primary care provider in 3-5 days. Return to ED sooner if any worsening shortness of breath, fatigue, fever or concerns. Stand Alone Forms: Portal Information Referrals: Barrera Dsouza [Primary Care Provider, Medicine] - 5 days Referral Note: ER follow-up, call for an appointment Clinical Impression: URI (upper respiratory infection) HPI General Mode of arrival: ambulatory . Date/Time Provider Initiated Documentation: 01/23/25 20:20 . Limitations to Documentation: no limitations . Information obtained by: patient, RN notes reviewed and old records reviewed . HPI Narrative: 45-year-old female with a history of URI type symptoms last couple weeks she reports not getting better. She does have rhonchi and wheezing noted bilaterally on auscultation. She is speaking full sentences O2 sat is 94% on room air. She denies smoking, does not have any inhalers at home. No other associated symptoms or concerns. Related Data Home Medications Medication Instructions Recorded Confirmed ibuprofen 200 mg capsule 200 mg PO Q6H PRN 04/26/19 1 03/25/24 acetaminophen 325 mg tablet 650 mg (2 x 325 mg) PO Q4H PRN PRN 09/03/20 01/23/25 (Tylenol) #0 tabs omeprazole 40 mg capsule,delayed 40 mg PO DAILY #90 ca ps 01/29/21 01/23/25 release buprenorphine 8 mg-naloxone 2 mg 2 film sublingual XOCHITL LY 02/11/21 01/23/25 sublingual film (Suboxone) azathioprine 50 mg tablet 250 mg (5 x 50 mg) PO DAILY #450 10/27/23 01/23/25 tabs pyridostigmine bromide 60 mg 60 mg PO TID #270 tabs 01/23/25 tablet (Mestinon) azithromycin 250 mg tablet See Rx Instructions PO .[employer] [facility] 6 01/23/25 days #6 tabs prednisone 50 mg tablet 50 mg PO DAILY Inflammation 5 days 01/23/25 #5 tabs Previous Rx's Medication Instructions Recorded acetaminophen 325 mg tablet 650 mg (2 x 325 mg) PO Q4H PRN PRN 09/03/20 (Tylenol) #0 tabs omeprazole 40 mg capsule,delayed 40 mg PO DAILY #90 ca ps 01/29/21 release azathioprine 50 mg tablet 250 mg (5 x 50 mg) PO DAILY #450 10/27/23 tabs pyridostigmine bromide 60 mg 60 mg PO TID #270 tabs tablet (Mestinon) azithromycin 250 mg tablet See Rx Instructions PO .[employer] PLEX 6 01/23/25 days #6 tabs prednisone 50 mg tablet 50 mg PO DAILY Inflammation 5 days 01/23/25 #5 tabs Allergies Allergy/AdvReac Type Severity Reaction Status Date / Time adhesive tape Allergy Severe pealed her Verified 01/23/25 20:19 skin off when removing the tape. General Stated Complaint: RespSymp CHRIS: 3 Review of Systems All systems reviewed & are unremarkable except as noted in HPI and below Constitutional Constitutional: Reports as per HPI Cardiovascular Cardiovascular: Reports chest pain Respiratory Respiratory: Reports change in phlegm color, Reports chest congestion, Reports cough, Reports excessive phlegm production and Reports wheezing Allergic/Immunologic Allergic/Immunologic: Reports wheezing Course Reevaluation(s) Initial Evaluation: Bilateral rhonchi, inspiratory and expiratory wheezes, DuoNeb Solu-Medrol ordered Time: 20:48 Reevaluation: On patient reevaluation wheezing has decreased. She states she feels somewhat better, Continues to speak in full sentences. Time: 22:07 Vital Signs Vital signs: Vital Signs Temperature 36.8 C 01/23/25 20:09 Pulse 99 H 01/23/25 20:09 Respiratory Rate 24 01/23/25 20:09 Blood Pressure 134/88 01/23/25 20:09 Pulse Oximetry 94 01/23/25 20:09 Temperature 36.8 C 01/23/25 20:18 Temperature Source Oral 01/23/25 20:18 Pulse 99 H 01/23/25 20:18 Respiratory Rate 24 01/23/25 20:18 Respiratory Effort Short of Breath 01/23/25 20:32 Respiratory Depth Deep 01/23/25 20:32 Blood Pressure 134/88 01/23/25 20:18 Blood Pressure Position Sitting 01/23/25 20:18 Pulse Oximetry 94 01/23/25 20:18 Oxygen Delivery Method Room Air 01/23/25 20:18 Oxygen Flow Rate 0 01/23/25 20:09 Lab/Test Results Lab/Test Results: 01/23/25 20:39 Blood Blood Culture - Pending 01/23/25 20:39 Blood Blood Culture - Pending Medical Decision Making 45-year-old female with a history of URI type symptoms last couple weeks she reports not getting better. She does have rhonchi and wheezing noted bilaterally on auscultation. She is speaking full sentences O2 sat is 94% on room air. She denies smoking, does not have any inhalers at home. No other associated symptoms or concerns. Workup ordered CBC CMP serial troponins, EKG obtained by ED staff prior to arrival, improved serial exam and Solu-Medrol IV. Fluvid swab is pending. CBC shows slightly elevated white blood cell count of 12.41, neutrophils 9.16 CMP within normal limits negative COVID flu RSV. Chest x-ray shows no acute abnormality. Similar to previous. Please see course, on reevaluation wheezing is decreased she is requesting to be discharged from the department. Will give albuterol inhaler to go 5 days of 50 mg prednisone p.o. and azithromycin Z-Sanjiv discharged with close follow-up with her PCP she verbalized understanding. She remained hemodynamically stable throughout the remainder of her stay. This text was generated using [employer] dictation system, please disregard any oddities of phrase or misspellings. Medical Records Medical records reviewed: Yes I reviewed the patient's medical records. Imaging Data Radiologic Study: Imaging: X-Ray Radiologist's impression: Exam: XR Chest Exam date and time: 01/23/2025 9:30 PM Age: 45 years old Clinical indication: Other: SOB, wheezing TECHNIQUE: Imaging protocol: Radiologic exam of the chest. Views: 2 views. COMPARISON: CR XR CHEST 2V PA LATERAL 12/03/2024 1:58 AM FINDINGS: Lungs: The lungs are clear. No consolidative radiopacities. Pleural spaces: No pleural effusion. No pneumothorax. Heart/Mediastinum: The heart is normal size. Bones/joints: Unremarkable. IMPRESSION: No acute cardiopulmonary findings. Thank you for allowing us to participate in the care of your patient. Dictated and Authenticated by: Casie Singleton MD Lab Data Lab results reviewed: Yes I reviewed the patient's lab results. Labs: 01/23/25 21:22 Blood Blood Culture - Pending 01/23/25 20:39 Blood Blood Culture - Pending Laboratory Tests Range/Units 01/23/25 01/23/25 20:14 21:22 WBC (4.4-10.8) 10^3/uL 12.41 H RBC (3.93-5.22) 10^6/uL 4.47 Hgb (11.2-15.7) g/dL 12.2 Hct (36.0-46.0) % 38.7 MCV (80-95) fL 87 MCH (27.0-33.0) pg 27.3 MCHC (32.0-36.0) % 31.5 L RDW (11.7-14.6) % 15.6 H Plt Count (130-400) 10^3/uL 232 MPV (8.0-11.0) fL 11.2 H Immature Gran % % 0.4 Neutrophils % % 73.8 Lymphocytes % % 14.7 Monocytes % % 5.1 Eosinophils % % 5.2 Basophils % % 0.8 Nucleated RBC % (0.0-0.3) % 0.0 Absolute Neutrophils (1.2-6.7) 10^3/uL 9.16 H Absolute Lymphocytes (1.2-3.4) 10^3/uL 1.82 Absolute Monocytes (0.1-0.8) 10^3/uL 0.63 Absolute Eosinophils (0.0-0.7) 10^3/uL 0.65 Absolute Basophils (0.0-0.2) 10^3/uL 0.10 Sodium (136-145) mmol/L 140 Potassium (3.5-5.1) mmol/L 3.6 Chloride (98-107) mmol/L 102 Carbon Dioxide (21.0-32.0) mmol/L 29.3 Anion Gap (3-11) mmol/L 8.7 BUN (7-18) mg/dL 9 Creatinine (0.55-1.02) mg/dL 0.7 Est GFR (CKD-EPI 2020) (mL/min/1.73m2) 109.30 Glucose (74-106) mg/dL 97 Calcium (8.5-10.1) mg/dL 9.2 Total Bilirubin (0.2-1.0) mg/dL 0.4 AST (15-37) U/L 14 L ALT (14-59) U/L 15 Alkaline Phosphatase (46-116) U/L 82 Troponin I (<or=51) ng/L 6 Total Protein (6.4-8.2) g/dL 8.7 H Albumin (3.4-5.0) g/dL 3.6 COVID-19 Source Nasopharynx SARS-CoV-2 (PCR) (Negative) Negative Influenza Type A (PCR) (Negative) Negative Influenza Type B (PCR) (Negative) Negative RSV (PCR) (Negative) Negative Quality:SDOH Health Related Social Needs: Health related social needs material hardship Health related social needs details ran out of oil or electricity a time or two [facility] All Active Problems (Updated 01/23/25 @ 22:09 by Carlie Altamirano NP) URI (upper respiratory infection) (Acute) Polysubstance (including opioids) dependence with physiol dependence (Acute) On Suboxone, pt states she has been tapering off this medication Prolonged QT interval (Acute) Elevated MCV (Acute) Ruptured right breast implant (Acute) Left eye pain (Acute) Closed left ankle fracture (Acute 04/07/21) Myasthenia gravis with exacerbation (Acute) Headache (Acute) Myasthenic crisis (Acute) Shortness of breath (Acute) Upper back pain (Acute) Carpal tunnel syndrome on left (Acute) Anemia (Chronic) Carpal tunnel syndrome on right (Acute) s/p right ECTR DOS: 02/19/20 Dr. 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 Pot Housing: house Number of Children: 2 current occupation: Unemployed Current gender identity: female Do you feel safe at home: Yes Do you feel safe in your relationship?: Yes Female Reproductive History Menstrual control method: permanent sterilization History History 4 Para 2 Hx # Term Pregnancies Multiple births Hx # Pregnancies Ectopic pregnancies AB induced Hx Number of Living Children AB spontaneous
[2025-01-23] MEDS: Albuterol/Ipratropium 3 ML UPD VIAL UPD (20:53)
[2025-01-23 21:04] LABS: COVID-19 PCR Negative (Negative); RSV PCR Negative (Negative)
[2025-01-23] MEDS: methylPREDNISolone SUCC 125 MG VIAL IVP (21:22)
[2025-01-23 21:30] LABS: Abs Immature Grans 0.05 10^3/uL (0.0-0.06); HCT 38.7 % (36.0-46.0); HGB 12.2 g/dL (11.2-15.7); Immature Grans % 0.4 %; MCH 27.3 pg (27.0-33.0); MCHC 31.5 % (32.0-36.0); MCV 87 fL (80-95); MPV 11.2 fL (8.0-11.0); Platelet Count 232 10^3/uL (130-400); RBC 4.47 10^6/uL (3.93-5.22); RDW 15.6 % (11.7-14.6); RDW-SD 49.4 fL; WBC 12.41 10^3/uL (4.4-10.8)
[2025-01-23 21:48] LABS: ALT 15 U/L (14-59); AST 14 U/L (15-37); Albumin 3.6 g/dL (3.4-5.0); Alkaline Phosphatase 82 U/L (46-116); Anion Gap 8.7 mmol/L (3-11); BUN 9 mg/dL (7-18); Bilirubin, Total 0.4 mg/dL (0.2-1.0); CO2 29.3 mmol/L (21.0-32.0); Calcium 9.2 mg/dL (8.5-10.1); Chloride 102 mmol/L (98-107); Glucose 97 mg/dL (74-106); Potassium 3.6 mmol/L (3.5-5.1); Sodium 140 mmol/L (136-145); Total Protein 8.7 g/dL (6.4-8.2)
[2025-01-23 21:52] LABS: Troponin I 6 ng/L (<or=51)
--- NOTE | 2025-01-23 21:55 | DI.VRAD_ITS ---
PROCEDURE INFORMATION: Exam: XR Chest Exam date and time: 01/23/2025 9:30 PM Age: 45 years old Clinical indication: Other: SOB, wheezing TECHNIQUE: Imaging protocol: Radiologic exam of the chest. Views: 2 views. COMPARISON: CR XR CHEST 2V PA LATERAL 12/03/2024 1:58 AM FINDINGS: Lungs: The lungs are clear. No consolidative radiopacities. Pleural spaces: No pleural effusion. No pneumothorax. Heart/Mediastinum: The heart is normal size. Bones/joints: Unremarkable. IMPRESSION: No acute cardiopulmonary findings. Dictated and Authenticated by: Casie Singleton MD. Orderin Evelia Sexton MD
[2025-01-23] MEDS: Albuterol HFA 8 GM 60 PUFF INH IH (22:25)
== END 2025-01-23 22:34 | disposition home or self-care (01) ==
LOC: ER 22:33
PROVIDERS: Emergency Medicine; Emergency Provider Registered Nurse Emergency; PCP Physician Assistant
DX: J06.9 Acute upper respiratory infection, unspecified (principal); Z59.87 Material hardship due to limited financial resources, not elsewhere classified; R06.02 Shortness of breath; R06.2 Wheezing
CPT/HCPCS: 99284 ×2; 96374; 94640; 36415; 80053; 87040; 87637; 93005; 71046; 84484; 85025; 93010; J2919; J7620

== ENCOUNTER 2025-02-19 11:55 | Outpatient (REF) | payer MEDICAID, SELFPAY ==
[2025-02-19 16:17] LABS: HCT 36.1 % (36.0-46.0); HGB 11.5 g/dL (11.2-15.7); MCH 28.1 pg (27.0-33.0); MCHC 31.9 % (32.0-36.0); MCV 88 fL (80-95); MPV 12.1 fL (8.0-11.0); Platelet Count 292 10^3/uL (130-400); RBC 4.09 10^6/uL (3.93-5.22); RDW 15.5 % (11.7-14.6); RDW-SD 49.5 fL; WBC 6.02 10^3/uL (4.4-10.8)
[2025-02-19 16:32] LABS: ALT 12 U/L (10-49); AST 19 U/L (<34); Albumin 4.2 g/dL (3.2-5.0); Alkaline Phosphatase 92 U/L (46-116); Anion Gap 8.1 mmol/L (3-11); BUN 11 mg/dL (9-23); Bilirubin, Total 0.30 mg/dL (0.2-1.2); CO2 25.9 mmol/L (20.0-31.0); Calcium 9.3 mg/dL (8.3-10.6); Chloride 107 mmol/L (98-107); Glucose 85 mg/dL (74-106); Potassium 4.3 mmol/L (3.5-5.1); Sodium 141 mmol/L (136-145); Total Protein 7.9 g/dL (5.7-8.2)
[2025-02-20 10:25] LABS: Syphilis Serology (RPR) Negative (Negative)
[2025-02-20 10:35] LABS: HIV-1/2 Ag & Ab Screen Negative (Negative)
[2025-02-20 12:15] LABS: Hepatitis C Ab w Rflx HCV PCR Reactive (Negative)
== END 2025-02-19 11:56 | disposition home or self-care (01) ==
LOC: NCHCN 11:55
PROVIDERS: PCP Physician Assistant; Visit Provider Physician Assistant
DX: F11.90 Opioid use, unspecified, uncomplicated (principal); Z11.59 Encounter for screening for other viral diseases
CPT/HCPCS: 80053; 85027; 86803; 87389; 87522; 86592